=== PATIENT | female | born 1950 | race Caucasian/White ===

== ENCOUNTER 2020-07-13 15:25 | Inpatient (IN) | payer MEDICAID ==
[~2020-07-13] VITALS: Ht 149.9 cm; Wt 46.7 kg
--- NOTE | 2020-07-13 15:36 | NUR ---
PATIENT A/OX2-3, BURUNDIAN SPEAKING ONLY. ATTACHED TO THE UTILITIES ESTIMATOR AND DRAFTER. BP 184/84. NO DISTRESS NOTED.
--- NOTE | 2020-07-13 16:02 | NUR ---
BLOOD DRAWN AND SENT TO LAB.
[2020-07-13 16:06] LABS: BASOPHILS % (AUTO) 0.5 % (0.0-2.0); EOSINOPHILS % (AUTO) 2.1 % (0.0-6.0); HEMATOCRIT 41 % (33-45); HEMOGLOBIN 12.9 g/dL (11.5-14.8); LYMPHOCYTES # (AUTO) 1.4 /CMM (0.8-4.8); LYMPHOCYTES % (AUTO) 18.4 % (20.0-44.0); MEAN CORPUSCULAR HGB CONC 31 g/dl (31.0-36.0); MEAN CORPUSCULAR VOLUME 71 fL (82-100); MONOCYTES # (AUTO) 0.6 /CMM (0.1-1.30); MONOCYTES % (AUTO) 8.1 % (2.0-12.0); NEUTROPHILS # (AUTO) 5.4 /CMM (1.8-8.9); NEUTROPHILS % (AUTO) 70.9 % (43.0-81.0); PLATELET COUNT (AUTO) 201 /CMM (150-450); RED BLOOD CELL COUNT(AUTO) 5.77 MIL/uL (4.0-5.2); WHITE BLOOD COUNT (AUTO) 7.6 K/uL (4.3-11.0)
[2020-07-13 16:19] LABS: ALANINE AMINOTRANSFERASE 20 U/L (12-78); ALBUMIN 2.8 g/dL (3.4-5.0); ALKALINE PHOSPHATASE 117 U/L (46-116); ASPARTATE AMINOTRANSFERASE 37 U/L (15-37); BILIRUBIN,TOTAL 0.2 mg/dL (0.2-1.0); CALCIUM, SERUM 8.3 mg/dL (8.5-10.1); CARBON DIOXIDE 26 mmol/L (21-32); CHLORIDE 96 mmol/L (98-107); CREATININE 2.1 mg/dL (0.6-1.3); GLUCOSE 147 mg/dL (74-106); POTASSIUM 3.9 mmol/L (3.5-5.1); SODIUM SERUM 133 mmol/L (136-145); TOTAL PROTEIN, SERUM 6.8 g/dL (6.4-8.2); UREA NITROGEN, BLOOD 15 mg/dL (7-18)
--- NOTE | 2020-07-13 16:28 | NUR ---
MED RECON UNABLE TO UPDATE HOME MEDICATION INFORMATION AT THIS TIME. PATIENT RESIDES AT [facility] [phone]. CALLED AND REQUESTED RECORDS X3.
[2020-07-13] MEDS ORDERED: ENALAPRILAT INJ (1.25 MG/ML) 1.25 MG/ML VIAL IV ONE (16:44)
[2020-07-13 16:50] LABS: EOSINOPHILS % (MANUAL) 1 % (0-4); LYMPHOCYTES % (MANUAL) 16 % (16-48); MONOCYTES % (MANUAL) 6 % (0-11.0); NEUTROPHILS % (MANUAL) 77 (42-76)
[2020-07-13] MEDS ORDERED: ENALAPRILAT DIHYD. (2.5MG/ML) 1.25 MG/ML VIAL IV ONE (17:00)
--- NOTE | 2020-07-13 17:22 | NUR ---
PATIENT ASSISTED TO A BEDPAN. PATIENT IN STABLE CONDITION.
[2020-07-13] MEDS ORDERED: POLY15DR40 EACHEYE (17:57)
[2020-07-13] MEDS ORDERED: ASPI-1420 PO (17:57)
[2020-07-13] MEDS ORDERED: INSU100V7 SQ (17:57)
[2020-07-13] MEDS ORDERED: BUME1TAB8 PO (17:57)
[2020-07-13] MEDS ORDERED: FERR325T24 PO (17:57)
[2020-07-13] MEDS ORDERED: MULT1TAB62 PO (17:57)
[2020-07-13] MEDS ORDERED: PROC5TAB25 PO (17:57)
[2020-07-13] MEDS ORDERED: ERGO500014 PO (17:57)
[2020-07-13] MEDS ORDERED: NIFE90TA61 PO (17:57)
[2020-07-13] MEDS ORDERED: CALC667C6 PO (17:57)
[2020-07-13] MEDS ORDERED: LIDO30CR47 TP (17:57)
[2020-07-13] MEDS ORDERED: POLY17PO4 PO (17:57)
[2020-07-13] MEDS ORDERED: OMEP20TA20 PO (17:57)
[2020-07-13] MEDS ORDERED: AMLO5TAB9 PO (17:57)
[2020-07-13] MEDS ORDERED: ATOR40TA PO (17:57)
[2020-07-13] MEDS ORDERED: LEVO50TA8 PO (17:57)
[2020-07-13] MEDS ORDERED: ACET-868 PO (17:57)
[2020-07-13] MEDS ORDERED: LABE100T5 PO (17:57)
[2020-07-13] MEDS ORDERED: CLONIDINE HCL 0.1 MG TABLET ONE ×2 (18:53→19:51)
[2020-07-13] MEDS ORDERED: hydrALAZINE HCL IV 20 MG VIAL IV ONE (19:00)
--- NOTE | 2020-07-13 19:13 | NUR ---
HYDRALAZINE IV NOT AVAILABLE PER PHARMACY, INFORMED DR. LEYVA AND RECEIVED ORDER TO GIVE CLONIDINE 0.1MG X1. ORDER NOTED AND CARRIED OUT.
--- NOTE | 2020-07-13 19:18 | NUR ---
ENDORSED TO BRITT OTERO FOR COLLIN.
[2020-07-13] MEDS ORDERED: CLONIDINE HCL 0.1 MG TABLET PO ONE ×2 (19:30)
--- NOTE | 2020-07-13 20:52 | NUR ---
PATIENT TAKEN TO ASSIGNED ROOM FOR COLLIN.
[2020-07-13] MEDS ORDERED: FERROUS SULFATE (325 MG) 325 MG/TAB TABLET PO SCH (21:00)
[2020-07-13] MEDS ORDERED: ONDANSETRON HCL/PF 4 MG/2 ML VIAL IVP PRN (21:00)
[2020-07-13] MEDS ORDERED: Z GUARD REMEDY 2 OZ OINT TP PRN (21:00)
--- NOTE | 2020-07-13 21:10 | NUR ---
RN ADMITTING NOTES PATIENT RECEIVED FROM ER VIA GURNEY ACCOMPANIED BY ER STAFF. PATIENT A/O X 2, YARIEL SPEAKING. STABLE ON RA WITH BREATHING EVEN AND UNLABORED, NO SOB NOTED. NO SIGNS OF ACUTE DISTRESS. NO COMPLAINTS OF PAIN OR DISCOMFORT- NO FACIAL GRIMACING NOTED. RCW HD CATH NOTED AND IN PLACE. RFA #20 SL PATENT AND INTACT. VITALS TAKEN. TELE MONITOR PLACED. BELONGINGS ACCOUNTED FOR. SKIN ASSESSMENT DONE. PATIENT ORIENTED TO ROOM AND STAFF. SAFETY PRECAUTIONS IN PLACE WITH BED IN LOWEST POSITION, CALL LIGHT WITHIN REACH, BREAKS ON, SIDE RAILS UP. WILL CONTINUE TO MONITOR THROUGHOUT THE NIGHT.
[2020-07-13] MEDS: LABETALOL HCL (100MG) 100 MG TABLET PO SCH (21:47)
[2020-07-13 22:00] VITALS: BP 207/92
[2020-07-14] VITALS: BP 211/96
[2020-07-14] MEDS ORDERED: PROCHLORPERAZINE MALEATE 5 MG TABLET PO SCH
[2020-07-14] MEDS ORDERED: PROCHLORPERAZINE MALEATE 10 MG TABLET PO SCH
[2020-07-14 00:25] VITALS: BP 211/96
[2020-07-14] MEDS: hydrALAZINE HCL 25 MG TABLET PO PRN ×3 (00:33→14:11)
[2020-07-14 03:17] LABS: BASOPHILS # (AUTO) 0.3 /CMM (0.0-0.2); BASOPHILS % (AUTO) 2.9 % (0.0-2.0); EOSINOPHILS % (AUTO) 1.7 % (0.0-6.0); HEMATOCRIT 41 % (33-45); HEMOGLOBIN 12.8 g/dL (11.5-14.8); LYMPHOCYTES % (AUTO) 10.3 % (20.0-44.0); MEAN CORPUSCULAR HGB CONC 32 g/dl (31.0-36.0); MEAN CORPUSCULAR VOLUME 70 fL (82-100); MONOCYTES # (AUTO) 0.6 /CMM (0.1-1.30); MONOCYTES % (AUTO) 6.1 % (2.0-12.0); NEUTROPHILS # (AUTO) 7.3 /CMM (1.8-8.9); PLATELET COUNT (AUTO) 196 /CMM (150-450); RED BLOOD CELL COUNT(AUTO) 5.75 MIL/uL (4.0-5.2); WHITE BLOOD COUNT (AUTO) 9.2 K/uL (4.3-11.0)
[2020-07-14 03:32] LABS: ALANINE AMINOTRANSFERASE 20 U/L (12-78); ALBUMIN 2.5 g/dL (3.4-5.0); ALKALINE PHOSPHATASE 101 U/L (46-116); ASPARTATE AMINOTRANSFERASE 35 U/L (15-37); BILIRUBIN,TOTAL 0.1 mg/dL (0.2-1.0); CALCIUM, SERUM 8.3 mg/dL (8.5-10.1); CARBON DIOXIDE 30 mmol/L (21-32); CHLORIDE 99 mmol/L (98-107); GLUCOSE 109 mg/dL (74-106); MAGNESIUM 2.1 mg/dL (1.8-2.4); PHOSPHORUS 3.5 mg/dL (2.5-4.9); POTASSIUM 4.5 mmol/L (3.5-5.1); SODIUM SERUM 135 mmol/L (136-145); TOTAL PROTEIN, SERUM 6.3 g/dL (6.4-8.2); UREA NITROGEN, BLOOD 18 mg/dL (7-18)
[2020-07-14 03:35] LABS: CHOLESTEROL 127 mg/dL (<200); HDL CHOLESTEROL 66 mg/dL (40-60); LDL 52 mg/dL (0-99); TRIGLYCERIDES 90 mg/dL (30-150)
[2020-07-14 04:00] VITALS: BP 183/76
--- NOTE | 2020-07-14 06:51 | NUR ---
RN CLOSING NOTES PATIENT RESTING IN BED A/O X 1-2. STABLE ON RA WITH BREATHING EVEN AND UNLABORED, NO SOB NOTED. NO SIGNS OF ACUTE DISTRESS. NO SIGNS OF PAIN OR DISCOMFORT- NO FACIAL GRIMACING NOTED. TELE MONITOR READING TELE SR. IV LCOATED ON R HAND # 20 AND R CHESTWALL HD CATH NOTED AND IN TACT. SAFETY PRECAUTIONS IN PLACE WITH BED IN LOWEST POSITION, CALL LIGHT WITHIN REACH, BREAKS ON, SIDE RAILS UP. ALL NEEDS ATTENDED TO. PATIENT KEPT CLEAN AND DRY THROUGHOUT THE NIGHT. WILL ENDORSE TO ONCOMING SHIFT ABOUT COLLIN.
--- NOTE | 2020-07-14 07:20 | NUR ---
ms rn received a new admission from last night, patient is awake,alert,oriented x2,not in any form of distress,came in w/ dx of tia, respirations even and unlabored, no sob noted, denies pain at this time,all needs attended.will monitor patient.
--- NOTE | 2020-07-14 08:00 | NUR ---
ms rn patient assessed for swallowing, was able to swallow food w/o dificulty and current issue for ability to swallow.whole breakfast taken.
[2020-07-14] MEDS ORDERED: AMLODIPINE BESYLATE 5 MG TABLET PO SCH (09:00)
[2020-07-14] MEDS: ASPIRIN EC 81 MG TABLET.DR PO SCH (09:00)
--- NOTE | 2020-07-14 09:00 | NUR ---
ms brent Koehler for stroke assessment orders,will look at the stroke nihs done and milady rechecked orders.
--- NOTE | 2020-07-14 09:30 | NUR ---
ms rn due meds given,tolerated well. evaluated for pt also done.
[2020-07-14] MEDS: POLYETHYLENE GLYCOL 3350 17 GM POWD.PACK PO SCH (10:01)
[2020-07-14] MEDS: ATORVASTATIN 40 MG TABLET PO SCH (10:01)
[2020-07-14] MEDS: LABETALOL HCL (100MG) 100 MG TABLET PO SCH ×2 (10:02→21:42)
[2020-07-14] MEDS: BUMETANIDE (1 MG) 1 MG TABLET PO SCH (10:02)
[2020-07-14] MEDS: NIFEdipine XL (30MG) 30 MG TAB PO SCH (10:03)
[2020-07-14] MEDS: ASPIRIN 81 MG TAB.CHEW PO SCH (10:04)
[2020-07-14] MEDS: hydrALAZINE HCL 50 MG TABLET PO SCH ×3 (10:04→17:18)
[2020-07-14] MEDS: LEVOTHYROXINE SODIUM 75 MCG TABLET PO SCH (10:06)
[2020-07-14] MEDS: CALCIUM ACETATE 667 MG TABLET PO SCH ×3 (10:07→17:18)
[2020-07-14] MEDS: NITROGLYCERIN 30 GM TUBE TP SCH ×2 (10:20→21:00)
[2020-07-14] MEDS: INSULIN GLARGINE, 100 UNIT/ML CARTRIDGE SQ SCH ×2 (10:26→21:51)
--- NOTE | 2020-07-14 11:16 | NUR ---
Gauge And Weigh Machine Adjuster consult requested per stroke protocol. Per RN note, patient is not alert and oriented. SW attempted to speak with a self pay representative at [facility] . SW could not speak to a self pay representative and could not leave a voicemail. SW to attempt again to receive information next of kin. SW to remain available for all needs regarding this patient.
--- NOTE | 2020-07-14 12:23 | NUR ---
KYLER attempted to speak with a inventory representative at [facility] . KYLER could not speak to a inventory representative however was able to leave a message. SW to remain available for all needs regarding this patient.
--- NOTE | 2020-07-14 14:30 | NUR ---
ms rn covid negative result received patient will be transfered to [facility], supervisor stone notified.
[2020-07-14] MEDS ORDERED: DEXTROSE 50%-WATER 50 ML DISP.SYRIN IV PRN (15:00)
--- NOTE | 2020-07-14 15:25 | NUR ---
ms rn patient transferred to [facility], report given to lauren Pickens.
--- NOTE | 2020-07-14 15:30 | NUR ---
MAGENTO WEB DEVELOPER NOTES RECEIVED PT FROM [place] RN, PT IS AWAKE, ALERT AND VERBALLY RESPONSIVE, NO COMPLAINT OF PAIN, RESPIRATIONS NORMAL, ROOM SET UP ORIENTATION PROVIDED TO PT, VERBALIZED UNDERSTANDING, KEPT PT COMFORTABLE.
[2020-07-14 16:00] VITALS: BP 143/59
[2020-07-14] MEDS: BLOOD SUGAR DIAGNOSTIC 1 EACH STRIP IN SCH ×2 (18:10→21:58)
--- NOTE | 2020-07-14 18:13 | NUR ---
RN MS NOTES PT'S BS 483, DR. HONG INFORMED, ORDERED TO GIVE 14 UNITS REGULAR INSULIN AND RECHECK BS AFTER 2 HOURS, NOTED AND CARRIED OUT.
[2020-07-14] MEDS ORDERED: INSULIN REGULAR, HUMAN 100 UNIT/ML 3 ML VIAL SQ ONE (18:30)
--- NOTE | 2020-07-14 18:35 | NUR ---
ASSOCIATE VICE PRESIDENT NOTES PT IN BED, AWAKE, ALERT AND ORIENTED, EATING DINNER, ABLE TO EAT INDEPENDENTLY, NO SWALLOWING PROBLEM NOTED, PM MEDS GIVEN, PM CARE PROVIDED, ALL NEEDS ATTENDED.
--- NOTE | 2020-07-14 19:30 | NUR ---
RN OPENING NOTES Received patient asleep on bed, easily awaken, responsive to verbal stimuli. Rechecked blood sugar as ordered, 367. Pt denies any discomfort at this time. On tele monitor with NSR noted. Kept on bed clean, dry and comfortable. Call light within easy reach. Will continue to monitor accordingly.
[2020-07-14 20:00] VITALS: BP 114/68
[2020-07-14] MEDS ORDERED: ERGOCALCIFEROL (VITAMIN D 2) 50,000 UNIT CAPSULE PO SCH (21:00)
[2020-07-14] MEDS: ACETAMINOPHEN 325 MG TABLET PO PRN (21:41)
--- NOTE | 2020-07-14 22:45 | NUR ---
RN NOTES: CM CONSULT Pt is noted with very limited Mongolian communication. Pt's primary and main language is Graham. Per patient she is mostly misunderstood and thought to be disoriented in her previous facility due to language barrier. Pt requesting if she could be transferred into a facility able to accommodate Graham-communication needs. Case management consult initiated.
[2020-07-14 23:27] VITALS: BP_SYST 119; BP_SYST 131; BP_DIAS 66; BP_DIAS 68
[2020-07-15] VITALS: BP 151/68
[2020-07-15 04:00] VITALS: BP 152/67
[2020-07-15] MEDS: ACETAMINOPHEN 325 MG TABLET PO PRN (05:21)
[2020-07-15 06:32] LABS: BASOPHILS % (AUTO) 0.5 % (0.0-2.0); EOSINOPHILS % (AUTO) 1.9 % (0.0-6.0); HEMATOCRIT 40 % (33-45); HEMOGLOBIN 12.5 g/dL (11.5-14.8); LYMPHOCYTES # (AUTO) 1.4 /CMM (0.8-4.8); LYMPHOCYTES % (AUTO) 17.7 % (20.0-44.0); MEAN CORPUSCULAR HGB CONC 31 g/dl (31.0-36.0); MEAN CORPUSCULAR VOLUME 72 fL (82-100); MONOCYTES # (AUTO) 0.7 /CMM (0.1-1.30); NEUTROPHILS # (AUTO) 5.8 /CMM (1.8-8.9); NEUTROPHILS % (AUTO) 70.9 % (43.0-81.0); PLATELET COUNT (AUTO) 188 /CMM (150-450); RED BLOOD CELL COUNT(AUTO) 5.57 MIL/uL (4.0-5.2); WHITE BLOOD COUNT (AUTO) 8.2 K/uL (4.3-11.0)
--- NOTE | 2020-07-15 06:35 | NUR ---
RN CLOSING NOTES Pt asleep on bed, on RA, no new complaints noted. Medicated for pain, noted effective. All nursing needs attended, due meds given as ordered. Kept on bed clean, dry and comfortable. On fall and aspiration precautions. On tele monitor with NSR with inverted T wave noted. Endorsed.
[2020-07-15] MEDS: LEVOTHYROXINE SODIUM 75 MCG TABLET PO SCH (06:38)
[2020-07-15] MEDS: BLOOD SUGAR DIAGNOSTIC 1 EACH STRIP IN SCH ×4 (06:38→22:12)
[2020-07-15 06:44] LABS: ALANINE AMINOTRANSFERASE 19 U/L (12-78); ALBUMIN 2.6 g/dL (3.4-5.0); ALKALINE PHOSPHATASE 102 U/L (46-116); ASPARTATE AMINOTRANSFERASE 54 U/L (15-37); CALCIUM, SERUM 8.1 mg/dL (8.5-10.1); CARBON DIOXIDE 25 mmol/L (21-32); CHLORIDE 95 mmol/L (98-107); CREATININE 4.1 mg/dL (0.6-1.3); GLUCOSE 74 mg/dL (74-106); MAGNESIUM 2.2 mg/dL (1.8-2.4); PHOSPHORUS 4.7 mg/dL (2.5-4.9); POTASSIUM 4.3 mmol/L (3.5-5.1); SODIUM SERUM 131 mmol/L (136-145); TOTAL PROTEIN, SERUM 6.4 g/dL (6.4-8.2); UREA NITROGEN, BLOOD 36 mg/dL (7-18)
[2020-07-15 06:58] LABS: BILIRUBIN,TOTAL 0.1 mg/dL (0.2-1.0)
--- NOTE | 2020-07-15 07:30 | NUR ---
RN/MS Opening note Patient received from shift supervisor. A/O X4, vital signs stable, no fevers noted. Per shift supervisor nurse who is able to communicate with patient in Malagasy, no pain or discomfort. Heplock to right hand shows no signs of infiltration, permacath to right chest wall noted. Safety measures in place, bed in low setting, side rails X3 in upright position. Call light within reach, will continue to monitor and ensure safety.
[2020-07-15 08:00] VITALS: BP 129/61
--- NOTE | 2020-07-15 08:30 | NUR ---
MS/RN S/B DR. HONG S/B HAL PATIENT FOR DISCHARGED TO SNF VS ARU TODAY.
[2020-07-15] MEDS: POLYETHYLENE GLYCOL 3350 17 GM POWD.PACK PO SCH (08:35)
[2020-07-15] MEDS: ASPIRIN 81 MG TAB.CHEW PO SCH (08:36)
[2020-07-15] MEDS: hydrALAZINE HCL 50 MG TABLET PO SCH ×3 (08:36→17:00)
[2020-07-15] MEDS: LABETALOL HCL (100MG) 100 MG TABLET PO SCH ×2 (08:37→22:23)
[2020-07-15] MEDS: CALCIUM ACETATE 667 MG TABLET PO SCH ×3 (08:37→17:12)
[2020-07-15] MEDS: ATORVASTATIN 40 MG TABLET PO SCH (08:37)
[2020-07-15] MEDS: BUMETANIDE (1 MG) 1 MG TABLET PO SCH (08:37)
[2020-07-15] MEDS: NIFEdipine XL (30MG) 30 MG TAB PO SCH (08:38)
[2020-07-15] MEDS: NITROGLYCERIN 30 GM TUBE TP SCH ×2 (08:38→22:22)
[2020-07-15] MEDS: INSULIN GLARGINE, 100 UNIT/ML CARTRIDGE SQ SCH ×2 (08:47→21:00)
[2020-07-15] MEDS: ASPIRIN EC 81 MG TABLET.DR PO SCH (08:47)
--- NOTE | 2020-07-15 11:30 | NUR ---
MS/RN BS CHECK BS CHECK 200. 3 UNITS OF INSULIN GIVEN PER SLIDING SCALE.
[2020-07-15 12:00] VITALS: BP 127/61
[2020-07-15] MEDS: INSULIN REGULAR, HUMAN 100 UNIT/ML 3 ML VIAL SQ PRN ×3 (12:00→22:17)
--- NOTE | 2020-07-15 13:25 | NUR ---
Relief Manager met with patient today to complete a psychosocial assessment. Reason for assessment is stroke protocol. Patient is a 70 year-old female of descent. Patient is Graham speaking with minimal Wallisian understanding. This SW with assistance of carton wrapper Amado used translation phone to conduct social services assistant assessment. Patient was alert and oriented x4 (time, self, place, situation). Patient was receptive to speaking to this SW. Patient reported that she had been living at [facility]. Patient reported she had been living there for quite some time but did not like it as much because there were very minimal staff to help her as many did not speak Graham. Patient informed this SW that she informed this to one [facility] RN who spoke Graham. This SW during chart review noticed this and Case Management was involved in finding appropriate discharge location. SW conducted PHQ9 with the patient. Patient scored a 1 on the PHQ9 assessment. SW provided stroke empowerment resources in Wallisian. SW to remain available for all needs regarding this patient.
--- NOTE | 2020-07-15 14:30 | NUR ---
MS/RN HDX HDX STARTED AT BEDSIDE.
[2020-07-15 16:00] VITALS: BP 105/48
--- NOTE | 2020-07-15 16:30 | NUR ---
MS/RN BS CHECK BS CHECK 141. 2 UNITS OF INSULIN GIVEN PER SLIDING SCALE.
--- NOTE | 2020-07-15 17:00 | NUR ---
MS/RN HDX COMPLETED HDX COMPLETED. VS SIGNS STABLE THROUGHOUT. 1 LITER OF FLUIDS REMOVED.
--- NOTE | 2020-07-15 18:34 | NUR ---
MS/RN CLOSING NOTE PATIENT IS IN STABLE CONDITION POST DIALYSIS. VS STABLE. AWAITING INFORMATION OPERATOR FOR PLACEMENT. WILL ENDORSE TO TECHNOLOGY APPLICATIONS TEACHER.
--- NOTE | 2020-07-15 19:30 | NUR ---
SECURITY SYSTEM INSTALLER OPENING NOTE RECEIVED PATIENT IN BED. A/OX 4. MACEDONIAN SPEAKING, ABLE TO MAKE BASIC NEEDS KNOWN. TOLERATING ROOM AIR. RESPIRATIONS ARE EVEN AND UNLABORED. NO S/S SOB NOTED. NO C/O PAIN AT THIS TIME. EXTERNAL TELE MONITOR READS SINUS RHYTHM HR 77. IN NO APPARENT DISTRESS. IV ACCESS IN RIGHT HAND #20 PATENT AND SALINE LOCKED. BED IS LOW AND LOCKED, HOB ELEVATED IN SEMI FOWLERS, SIDE RAILS UP X33, CALL LIGHT WITHIN REACH. WILL CONTINUE TO MONITOR.
[2020-07-15 20:00] VITALS: BP 157/67
--- NOTE | 2020-07-15 22:33 | NUR ---
television repair teacher note patient refused lantus 10 units. informed her of risk and benefits, continues to refuse. will continue to monitor.
[2020-07-16] VITALS: BP_SYST 151; BP_SYST 154; BP_DIAS 63; BP_DIAS 92
[2020-07-16] MEDS: ACETAMINOPHEN 325 MG TABLET PO PRN ×3 (01:23→17:23)
--- NOTE | 2020-07-16 01:23 | NUR ---
telephone coin box collector note administered prn tylenol 650mg for pain 3/10 in back. will continue ot monitor.
[2020-07-16 04:00] VITALS: BP 147/61
[2020-07-16] MEDS: BLOOD SUGAR DIAGNOSTIC 1 EACH STRIP IN SCH ×4 (06:25→21:02)
--- NOTE | 2020-07-16 06:37 | NUR ---
HEAD OPERATOR CLOSING NOTE PATIENT IS RESTING IN BED. A/OX 4. NO RESP DISTRESS NOTED. MANAGED BACK PAIN WITH TYLENOL. EXTERNAL TELE MONITOR READS SINUS RHYTHM. NO DISTRESS. IV ACCESS MAINTAINED IN RIGHT HAND #20 PATENT AND SALINE LOCKED. BED REMAINS LOW AND LOCKED, HOB ELEVATED IN SEMI FOWLERS, SIDE RAILS UP X3, CALL LIGHT WITHIN REACH. WILL ENDORSE TO NEXT SHIFT.
--- NOTE | 2020-07-16 07:13 | NUR ---
telecommunicator note informed dr. yancey patient has new st depression and is complaining of back pain from neck to lower back. no chest pain noted. MD order stat ekg. called rt to perform ekg. will endorse to next shift.
[2020-07-16 08:09] VITALS: BP 169/72
[2020-07-16] MEDS: hydrALAZINE HCL 50 MG TABLET PO SCH ×3 (08:24→16:32)
[2020-07-16] MEDS: ASPIRIN 81 MG TAB.CHEW PO SCH (08:24)
[2020-07-16] MEDS: ATORVASTATIN 40 MG TABLET PO SCH (08:24)
[2020-07-16] MEDS: CALCIUM ACETATE 667 MG TABLET PO SCH ×3 (08:24→17:00)
[2020-07-16] MEDS: NIFEdipine XL (30MG) 30 MG TAB PO SCH (08:24)
[2020-07-16] MEDS: LABETALOL HCL (100MG) 100 MG TABLET PO SCH ×2 (08:25→20:51)
[2020-07-16] MEDS: LEVOTHYROXINE SODIUM 75 MCG TABLET PO SCH (08:25)
[2020-07-16] MEDS: BUMETANIDE (1 MG) 1 MG TABLET PO SCH (08:25)
[2020-07-16] MEDS: POLYETHYLENE GLYCOL 3350 17 GM POWD.PACK PO SCH (08:25)
[2020-07-16 09:06] LABS: CARBON DIOXIDE 28 mmol/L (21-32); CHLORIDE 97 mmol/L (98-107); CREATININE 3.9 mg/dL (0.6-1.3); GLUCOSE 267 mg/dL (74-106); POTASSIUM 4.6 mmol/L (3.5-5.1); SODIUM SERUM 131 mmol/L (136-145); UREA NITROGEN, BLOOD 31 mg/dL (7-18)
[2020-07-16] MEDS: INSULIN GLARGINE, 100 UNIT/ML CARTRIDGE SQ SCH ×2 (09:07→21:01)
[2020-07-16] MEDS: NITROGLYCERIN 30 GM TUBE TP SCH ×2 (09:09→20:51)
[2020-07-16 09:20] LABS: ALANINE AMINOTRANSFERASE 22 U/L (12-78); ALBUMIN 2.7 g/dL (3.4-5.0); ALKALINE PHOSPHATASE 103 U/L (46-116); ASPARTATE AMINOTRANSFERASE 47 U/L (15-37); BILIRUBIN,TOTAL 0.1 mg/dL (0.2-1.0); MAGNESIUM 2.1 mg/dL (1.8-2.4); PHOSPHORUS 3.7 mg/dL (2.5-4.9); TOTAL PROTEIN, SERUM 6.6 g/dL (6.4-8.2)
--- NOTE | 2020-07-16 10:01 | NUR ---
TELE/RN NOTES CTA 3D IMAGE SCAN WAS EXPLAINED AND TRANSLATE BY JEFF(MATERIALS SCHEDULER). PATIENT WAS VERBALIZED THAT SHE WAS AGREED TO SIGN THE CONSENT. THE CONSENT WAS SIGNED AND ATTACH TO CHART.
--- NOTE | 2020-07-16 10:22 | NUR ---
TELE/RN NOTES PATIENT COMPLAINED OF HEADACHE, PATIENT REQUEST FOR TYLENOL 325MG 2 TAB PO AND WAS GIVEN. WILL CONTINUE TO MONITOR..
[2020-07-16] MEDS: INSULIN REGULAR, HUMAN 100 UNIT/ML 3 ML VIAL SQ PRN ×2 (12:12→21:02)
[2020-07-16 16:00] VITALS: BP 139/63
[2020-07-16] MEDS ORDERED: METOPROLOL TARTRATE 50 MG TABLET PO STA (16:00)
[2020-07-16] MEDS ORDERED: CT SWABBABLE VALVE TRANS SET 1 EA INFUS.SET MC ONE (16:17)
[2020-07-16] MEDS ORDERED: IOHEXOL-350 100 ML VIAL IV ONE (16:17)
[2020-07-16] MEDS ORDERED: IV NS 0.9% 250 ML IV ONE (16:17)
--- NOTE | 2020-07-16 17:03 | NUR ---
MS/RN HDX Per dialysis nurse Bill, order given by Dr Zacarias that patient stable for dialysis to be scheduled for early tomorrow morning. problem manager made aware, Dr Alvarez also informed.
--- NOTE | 2020-07-16 17:03 | NUR ---
TELE/RN NOTES PATIENT IS OUT IN THE UNIT, TOOL ANALYST BY KELVIN ([email or web address]). PATIENT I NO APPARENT RESPIRATORY DISTRESS NOTED. PATIENT DENIES PAIN AT THIS TIME.
--- NOTE | 2020-07-16 17:12 | NUR ---
TELE/RN NOTES PATIENT COMPLAINED OF BACK PAIN RATED 4/10, PATIENT REQUEST TYLENOL, TYLENOL 325MG 2 TAB PO WAS GIVEN. BROUGHT THE MEDICATION TO THE CAT LAB.
[2020-07-16] MEDS ORDERED: METOPROLOL TARTRATE INJ 5 MG/5 ML AMPUL ONE ×2 (17:17→17:34)
--- NOTE | 2020-07-16 18:05 | NUR ---
TELE/RN NOTES PATIENT CAME BACK FROM CAT LAB.
--- NOTE | 2020-07-16 18:52 | NUR ---
MS/RN CLOSING NOTES PATIENT IS ON BED. ALERT AND ORIENTED X4. PATIENT DENIES PAIN AT THIS TIME. IV ACCESS AT RIGHT HAND # 20 G AND RIGHT UPPER FOREARM MIDLINE PATENT AND INTACT. RIGHT CHEST WALL HEMODIALYSIS CATH CLEAN AND DRY. SEEN AND EXAMINED BY MD WITH ORDERS MADE AND CARRIED OUT. ALL DUE MEDICATION WAS GIVEN. SAFETY PRECAUTION WAS IN PLACED. BED IN LOWEST POSITION AND LOCKED. SIDERAILS UP X2. CALL LIGHT WITHIN REACH. PATIENT IS POSSIBLE DISCHARGED TODAY. WILL ENDORSED TO B2B ACCOUNT EXECUTIVE FOR COLLIN.
--- NOTE | 2020-07-16 19:27 | NUR ---
LODGING MANAGER OPENING NOTES PATIENT RECEIVED RESTING IN BED COMFORTABLY; A/OX3-4, KAZAKH SPEAKER; BREATHING EVEN AND UNLABORED; TOLERATING ROOM AIR WELL; NO SOB NOTED; TELE MONITOR READS SR 68BPM; R UA MIDLINE INTACT AND PATENT, INFUSING NORMAL SALINE, PATIENT TOLERATING IVF WELL; R HAND #20 INTACT AND PATENT, S/L, FLUSHING WELL; RCW HD CATH PRESENT; PATIENT RECEIVED HD 07/15/20 WITH 1L, PER AM SHIFT, PATIENT SCHEDULED FOR HD IN AM PRIOR TO D/C; SAFETY PRECAUTIONS IMPLEMENTED'; BED LOCKED IN LOW POSITION; SIDE RAILSX2; CALL LIGHT WITHIN REACH; WILL CONT TO MONITOR
[2020-07-16 20:00] VITALS: BP 151/64
[2020-07-16 20:13] VITALS: BP 151/64
--- NOTE | 2020-07-16 22:06 | NUR ---
MANAGER PET NOTES ER CALLED AND MENTIONED TRANSPORT HERE TO DESTINATION SIGN REPAIRER PATIENT; PER AM SHIFT, PATIENT IS TO D/C IN AM AFTER HEMODIALYSIS; CHARGE NURSE AWARE AND SPOKE WITH ER; PATIENT IS TO STAY UNTIL HEMODIALYSIS IN AM; WILL CONT TO MONITOR
[2020-07-17 04:00] VITALS: BP 147/58
[2020-07-17] MEDS: BLOOD SUGAR DIAGNOSTIC 1 EACH STRIP IN SCH ×2 (06:30→11:54)
--- NOTE | 2020-07-17 06:57 | NUR ---
PRESS BUCKER CLOSING NOTES PATIENT RESTING IN BED COMFORTABLY; A/OX3-4, WELSH SPEAKING, LIMITED SOUTH KOREAN; BREATHING EVEN AND UNLABORED; NO SOB NOTED; TOLERATING ROOM AIR WELL; TELE MONITOR READS SINUS RHYTHM; R HAND #20 S/L INTACT, KATHLEEN MIDLINE INTACT AND PATENT; RCW HD CATH PRESENT; ALL NEEDS RENDERED; SAFETY PRECAUTIONS IMPLEMENTED; BED LOCKED IN LOW POSITION; SIDE RAILSX2; CALL LIGHT WITHIN EASY REACH; WILL ENDORSE COLLIN TO ONCOMING SHIFT
[2020-07-17 08:00] VITALS: BP 138/58
--- NOTE | 2020-07-17 08:00 | NUR ---
MS RN NOTES PATIENT IN BED RESTING NO SOB OR ACUTE DISTRESS NOTED. MIDLINE INTACT PATENT. SAFETY MEASURES IN PLACE. WILL CONTINUE TO MONITOR.
[2020-07-17] MEDS: LEVOTHYROXINE SODIUM 75 MCG TABLET PO SCH (08:48)
[2020-07-17] MEDS: INSULIN GLARGINE, 100 UNIT/ML CARTRIDGE SQ SCH (09:00)
[2020-07-17] MEDS: hydrALAZINE HCL 50 MG TABLET PO SCH ×2 (09:00→13:02)
[2020-07-17] MEDS: NITROGLYCERIN 30 GM TUBE TP SCH (09:00)
[2020-07-17] MEDS: POLYETHYLENE GLYCOL 3350 17 GM POWD.PACK PO SCH (09:12)
[2020-07-17] MEDS: BUMETANIDE (1 MG) 1 MG TABLET PO SCH (09:12)
[2020-07-17] MEDS: NIFEdipine XL (30MG) 30 MG TAB PO SCH (09:12)
[2020-07-17] MEDS: CALCIUM ACETATE 667 MG TABLET PO SCH ×2 (09:12→13:01)
[2020-07-17] MEDS: ATORVASTATIN 40 MG TABLET PO SCH (09:13)
[2020-07-17] MEDS: ASPIRIN 81 MG TAB.CHEW PO SCH (09:13)
[2020-07-17] MEDS: LABETALOL HCL (100MG) 100 MG TABLET PO SCH (09:13)
[2020-07-17 11:35] VITALS: BP 150/59
[2020-07-17] MEDS: INSULIN REGULAR, HUMAN 100 UNIT/ML 3 ML VIAL SQ PRN (11:53)
--- NOTE | 2020-07-17 12:00 | NUR ---
MS RN NOTES PATIENT COMPLETED HD WITH 1L OUTPUT. TOLERATED WELL.
[2020-07-17 13:02] VITALS: BP 146/60
--- NOTE | 2020-07-17 13:30 | NUR ---
MS RN NOTES PATIENT DISCHARGED TO [facility] IN STABLE CONDITION. REPORT GIVEN TO MICHAEL RN. INSTRUCTED TO MAKE FOLLOW UP BRIGIDO WITH DR. CORTES. ALL DISCHARGE INSTRUCTIONS PROVIDED TO PATIENT AND SN AT SNF. DISCHARGE PROTOCOL FOLLOWED. AWARE OF ALL ABNORMAL LABS AND TESTS. ALL BELONGINGS ACCOUNTED FOR, BELONGING LIST SIGNED. PATIENT DISCHARGED WITH AMBULANCE.
== END 2020-07-17 13:30 | DRG 111 ==
LOC: ER 15:30 → TELE2 20:09 → TELE 07-14 16:26 → MED 07-17 09:47
PROVIDERS: ADMIT Nurse Practitioner Acute Care; ATTEND Internal Medicine
PROC: 5A1D70Z Performance of Urinary Filtration, Intermittent, Less than 6 Hours Per Day (ICD-10-PCS; 2020-07-15)
PROC: 05HY33Z Insertion of Infusion Device into Upper Vein, Percutaneous Approach (ICD-10-PCS; principal; 2020-07-16)
DX: H81.10 Benign paroxysmal vertigo, unspecified ear (principal); I95.3 Hypotension of hemodialysis; I13.2 Hypertensive heart and chronic kidney disease with heart failure and with stage 5 chronic kidney disease, or end stage renal disease; I50.33 Acute on chronic diastolic (congestive) heart failure; N18.6 End stage renal disease; E11.22 Type 2 diabetes mellitus with diabetic chronic kidney disease; I21.A1 Myocardial infarction type 2; Z88.1 Allergy status to other antibiotic agents; Z88.0 Allergy status to penicillin; Z88.2 Allergy status to sulfonamides; Z88.8 Allergy status to other drugs, medicaments and biological substances; Z79.84 Long term (current) use of oral hypoglycemic drugs; Z79.82 Long term (current) use of aspirin; Z79.899 Other long term (current) drug therapy; Z99.2 Dependence on renal dialysis; K21.9 Gastro-esophageal reflux disease without esophagitis; E78.5 Hyperlipidemia, unspecified; E03.9 Hypothyroidism, unspecified; N25.81 Secondary hyperparathyroidism of renal origin; R71.8 Other abnormality of red blood cells
CPT/HCPCS: 36415; 70450-TC; 71045-TC; 75574; 80048-TC; 80053-TC; 80061-TC; 80076-TC; 82962-TC; 83735-TC; 83880; 84100-TC; 84484-TC; 85025-TC; 87081-TC; 90935-TC; 92526; 92611-TC; 93307-TC; 93880-TC; 97110-TC; 97112-TC; 97530-TC; G0378; J1815; J3490; J7050; Q0164; Q9967; U0003

== ENCOUNTER 2021-04-12 14:14 | Emergency (ER) | payer MEDICAID ==
[~2021-04-12] VITALS: Ht 160 cm; Wt 64.9 kg
[~2021-04-12 14:14] MED LIST: ACET-868 PO; AMLO-212 PO; ASPI-1420 PO; ATOR40TA PO; BUME1TAB8 PO; CALC667C6 PO; ERGO500093 PO; FERR325T24 PO; INSU100V7 SQ; LABE100T5 PO; LEVO50TA8 PO; LIDO30CR47 TP; MULT1TAB62 PO; NIFE90TA61 PO; OMEP20TA20 PO; POLY15DR40 EACHEYE; POLY17PO4 PO; PROC5TAB56 PO
--- NOTE | 2021-04-12 15:00 | NUR ---
Patient gris, from dialysis center, c/o weak and feeling sick. on room air, breathing evenly and unlabored. COnnected to the monitor and pulse ox. kept comfortable, will continue to monitor accordingly.
[2021-04-12 15:55] LABS: BASOPHILS % (AUTO) 0.7 % (0.0-2.0); EOSINOPHILS % (AUTO) 3.6 % (0.0-6.0); HEMATOCRIT 37 % (33-45); HEMOGLOBIN 11.8 g/dL (11.5-14.8); LYMPHOCYTES # (AUTO) 1.2 K/uL (0.8-4.8); LYMPHOCYTES % (AUTO) 21.3 % (20.0-44.0); MEAN CORPUSCULAR HGB CONC 32 g/dl (31.0-36.0); MEAN CORPUSCULAR VOLUME 74 fL (82-100); MONOCYTES # (AUTO) 0.5 K/uL (0.1-1.30); NEUTROPHILS # (AUTO) 3.7 K/uL (1.8-8.9); NEUTROPHILS % (AUTO) 65.4 % (43.0-81.0); PLATELET COUNT (AUTO) 256 K/uL (150-450); RED BLOOD CELL COUNT(AUTO) 4.96 MIL/uL (4.0-5.2); WHITE BLOOD COUNT (AUTO) 5.6 K/uL (4.3-11.0)
[2021-04-12 16:03] LABS: CALCIUM, SERUM 8.4 mg/dL (8.5-10.1); CARBON DIOXIDE 28 mmol/L (21-32); CHLORIDE 96 mmol/L (98-107); CREATININE 2.3 mg/dL (0.6-1.3); GLUCOSE 313 mg/dL (74-106); POTASSIUM 3.7 mmol/L (3.5-5.1); SODIUM SERUM 132 mmol/L (136-145); UREA NITROGEN, BLOOD 21 mg/dL (7-18)
--- NOTE | 2021-04-12 17:44 | NUR ---
CALLED [facility] [phone] PT FROM [facility] [id number] [facility] [address] PLEASE CALL [phone] FOR REPORT.
--- NOTE | 2021-04-12 17:49 | NUR ---
CALLED TRANSPORT [facility] WITH ETA OF 45 MINS.
--- NOTE | 2021-04-12 18:25 | NUR ---
called snf and spoke to Leah OTERO for reid.
[2021-04-12 18:56] VITALS: BP 157/63
--- NOTE | 2021-04-12 18:58 | NUR ---
patient picked up by private ambulance going back to SNF in no distress. IV removed. Catheter intact and site benign. Pressure and 4x4 applied to site. No bleeding noted.
== END 2021-04-12 18:57 ==
LOC: ER 15:03
DX: R53.1 Weakness (principal); E11.65 Type 2 diabetes mellitus with hyperglycemia; I13.0 Hypertensive heart and chronic kidney disease with heart failure and stage 1 through stage 4 chronic kidney disease, or unspecified chronic kidney disease; E11.22 Type 2 diabetes mellitus with diabetic chronic kidney disease; N18.9 Chronic kidney disease, unspecified; K21.9 Gastro-esophageal reflux disease without esophagitis; E03.9 Hypothyroidism, unspecified; Z98.890 Other specified postprocedural states; Z88.0 Allergy status to penicillin; Z88.2 Allergy status to sulfonamides; Z88.1 Allergy status to other antibiotic agents; Z88.8 Allergy status to other drugs, medicaments and biological substances; Z79.4 Long term (current) use of insulin; Z79.899 Other long term (current) drug therapy; Z79.82 Long term (current) use of aspirin
CPT/HCPCS: 36415; 71045-TC; 80048-TC; 82962-TC; 84484-TC; 85025-TC; 87081-TC

== ENCOUNTER 2022-03-23 11:59 | Inpatient (IN) | payer MEDICAID ==
[~2022-03-23] VITALS: Ht 157.5 cm; Wt 50.8 kg
--- NOTE | 2022-03-23 12:20 | NUR ---
PT ER BED 4. BP 165/75 ON ARRIVAL. SUGAR 242.
[2022-03-23] MEDS ORDERED: DOCU-141 PO (12:56)
[2022-03-23] MEDS ORDERED: FOLI0.8T23 PO (12:56)
[2022-03-23] MEDS ORDERED: CRAN400C PO (12:56)
[2022-03-23] MEDS ORDERED: SEVE800T8 PO (12:56)
[2022-03-23] MEDS ORDERED: AMIN887L PO (12:56)
[2022-03-23] MEDS ORDERED: BISA10SU11 RC (12:56)
[2022-03-23] MEDS ORDERED: INSU100V3 IJ (12:56)
[2022-03-23] MEDS ORDERED: LABETALOL 20 MG/4 ML VIAL IV ONE (13:00)
[2022-03-23] MEDS ORDERED: LABETALOL HCL IV 100MG VIAL ONE (13:04)
[2022-03-23 13:16] LABS: BASOPHILS % (AUTO) 0.3 % (0.0-2.0); EOSINOPHILS % (AUTO) 2.1 % (0.0-6.0); HEMATOCRIT 31 % (33-45); HEMOGLOBIN 9.9 g/dL (11.5-14.8); LYMPHOCYTES # (AUTO) 1.1 K/uL (0.8-4.8); MEAN CORPUSCULAR HGB CONC 32 g/dl (31.0-36.0); MEAN CORPUSCULAR VOLUME 70 fL (82-100); MONOCYTES % (AUTO) 12.1 % (2.0-12.0); NEUTROPHILS # (AUTO) 6.2 K/uL (1.8-8.9); NEUTROPHILS % (AUTO) 72.5 % (43.0-81.0); PLATELET COUNT (AUTO) 302 K/uL (150-450); RED BLOOD CELL COUNT(AUTO) 4.44 MIL/uL (4.0-5.2); WHITE BLOOD COUNT (AUTO) 8.6 K/uL (4.3-11.0)
--- NOTE | 2022-03-23 13:30 | NUR ---
22g placed in right hand.
--- NOTE | 2022-03-23 13:34 | NUR ---
bp 168/70. LABETOLOL given as ordered.
[2022-03-23 13:41] LABS: CALCIUM, SERUM 9.1 mg/dL (8.5-10.1); CARBON DIOXIDE 25 mmol/L (21-32); CHLORIDE 101 mmol/L (98-107); CREATININE 5.4 mg/dL (0.6-1.3); GLUCOSE 211 mg/dL (74-106); POTASSIUM 3.2 mmol/L (3.5-5.1); SODIUM SERUM 137 mmol/L (136-145); UREA NITROGEN, BLOOD 38 mg/dL (7-18)
[2022-03-23 13:47] LABS: ALANINE AMINOTRANSFERASE 13 U/L (12-78); ALBUMIN 2.9 g/dL (3.4-5.0); ALKALINE PHOSPHATASE 112 U/L (46-116); ASPARTATE AMINOTRANSFERASE 19 U/L (15-37); BILIRUBIN,TOTAL 0.4 mg/dL (0.2-1.0); TOTAL PROTEIN, SERUM 7.1 g/dL (6.4-8.2)
[2022-03-23] MEDS ORDERED: ASPIRIN 81 MG TAB.CHEW PO ONE (14:30)
--- NOTE | 2022-03-23 14:31 | NUR ---
PAGED EPIC CROCHETER
[2022-03-23] MEDS ORDERED: IOHEXOL-300 100 ML VIAL IV ONE (14:58)
[2022-03-23 15:34] LABS: EOSINOPHILS % (MANUAL) 6 % (0-4); LYMPHOCYTES % (MANUAL) 15 % (16-48); MONOCYTES % (MANUAL) 11 % (0-11.0); NEUTROPHILS % (MANUAL) 68 (42-76)
--- NOTE | 2022-03-23 15:52 | NUR ---
ROOM 110
--- NOTE | 2022-03-23 15:55 | NUR ---
COVID ANTIGEN SWAB DONE AND SENT TO THE LAB
[2022-03-23] MEDS ORDERED: DEXTROSE 50%-WATER 50 ML DISP.SYRIN IV PRN (17:00)
[2022-03-23] MEDS ORDERED: MAGNESIUM HYDROXIDE 30 ML UDC PO PRN (17:00)
[2022-03-23] MEDS ORDERED: ZOLPIDEM TARTRATE 5 MG TABLET PO PRN (17:00)
[2022-03-23] MEDS ORDERED: MAG HYDROX/AL HYDROX/SIMETH 30 ML UDC PO PRN (17:00)
[2022-03-23] MEDS ORDERED: Z GUARD REMEDY 4 OZ OINT TP PRN (17:00)
[2022-03-23] MEDS ORDERED: ONDANSETRON HCL/PF 4 MG/2 ML VIAL IVP PRN (17:00)
[2022-03-23] MEDS: INSULIN GLARGINE, 100 UNIT/ML CARTRIDGE SQ SCH (17:00)
[2022-03-23] MEDS ORDERED: ACETAMINOPHEN 325 MG TABLET PO PRN (17:00)
--- NOTE | 2022-03-23 17:10 | NUR ---
REPORT GIVEN TO DENIA OTERO FOR COLLIN.
--- NOTE | 2022-03-23 17:15 | NUR ---
RN NOTES INGRID CALLED FROM ER AND GAVE REPORT AT 1711.
--- NOTE | 2022-03-23 17:39 | NUR ---
PT TRANSFER TO ROOM 110. DENIA RN AT BEDSIDE.
[2022-03-23] MEDS: SEVELAMER CARBONATE 800 MG TABLET PO SCH (18:02)
[2022-03-23] MEDS: BLOOD SUGAR DIAGNOSTIC 1 EACH STRIP VI SCH ×2 (18:02→21:54)
[2022-03-23 18:36] VITALS: BP 188/80
[2022-03-23] MEDS: hydrALAZINE HCL IV 20 MG VIAL IV PRN (19:00)
--- NOTE | 2022-03-23 19:10 | NUR ---
RN NOTE RECEIVED PATIENT IN BED, YARIEL SPEAKING, TRANSLATION BRIGIDO USED FOR COMMUNICATION, AO X 3-4, IN NO ACUTE DISTRESS AT THIS TIME, RESPIRATION UNLABORED, SATURATION AT 98% ON ROOM AIR, HR IS 77. IV LINE AT R HAND 22G PATENT AND FLUSHING WELL, NO S/S OF INFECTION OR INFILTRATION. PERMACATH IN PLACE AT R CHEST. SAFETY MEASURES IMPLEMENTED. PATIENT BED ALARM IS ON. HEAD OF BED ELEVATED. BED IS LOCKED, IN LOWEST POSITION AND SIDE RAILS UP. CALL LIGHT WITHIN REACH OF THE PATIENT. WILL CONTINUE TO MONITOR AND REASSESS FOR ANY CHANGES.
--- NOTE | 2022-03-23 19:34 | NUR ---
MS RN OPENING NOTES RECEIVED PATIENT FROM ER AT 1738. PATIENT IS ALERT AND ORIENTED TIMES 3. NO PAIN NOTED. NO SOB NOTED. NO DISTRESS NOTED. IV ACCESS ON THE RIGHT HAND GAUGE 22 INTACT. NOTED WITH ELEVATED BLOOD PRESSURE. MAIN LANGUAGE IS SERBIAN, BUT PATIENT IS ABLE TO SPEAK LITTLE SWEDISH. BLOOD SUGAR CHECKED NOTED 57, ORANGE JUICE AND APPLE SAUCE GIVEN. ABLE TO SWALLOW ,NO ISSUES NOTED. CRUSHED PILL FOR ASPIRATION PRECAUTION. HD CATHETER NOTED ON THE RIGHT UPPER CHEST. OVERALL SKIN INTACT. NO BELONGINGS WITH PATIENT. ALL NEEDS ATTENDED. ALL SAFETY MEASURES IN PLACE. BED LOCKED IN THE LOWEST POSITION. CALL LIGHT AND TABLE IN EASY REACH. HEAD OF THE BED ELEVATED FOR ASPIRATION PRECAUTION. WILL ENDORSE FOR COLLIN.
--- NOTE | 2022-03-23 19:42 | NUR ---
MS RN CLOSING NOTES PATIENT AWAKE IN BED.PATIENT IS ALERT AND ORIENTED TIMES 3. NO PAIN NOTED. NO SOB NOTED. NO DISTRESS NOTED. IV ACCESS ON THE RIGHT HAND GAUGE 22 INTACT. NOTED WITH ELEVATED BLOOD PRESSURE. HYDRALAZINE PRN GIVEN AT 1900. VITAL SIGNS HU=633/80, P=68, T=97.5, O2= 99 % RA, RR=17.ABLE TO SWALLOW ,NO ISSUES NOTED. HD CATHETER NOTED ON THE RIGHT UPPER CHEST. OVERALL SKIN INTACT. N. ALL NEEDS ATTENDED. ALL SAFETY MEASURES IN PLACE. BED LOCKED IN THE LOWEST POSITION. CALL LIGHT AND TABLE IN EASY REACH. HEAD OF THE BED ELEVATED FOR ASPIRATION PRECAUTION. WILL ENDORSE FOR COLLIN.
--- NOTE | 2022-03-23 19:46 | NUR ---
RN NOTES HELD 1700 INSULIN PER SLIDING SCALE , SINCE BLOOD SUGAR WAS 57.
[2022-03-23 20:00] VITALS: BP 148/71
[2022-03-23] MEDS ORDERED: VANCOMYCIN 1 GM in IV D5W 250 ML IV ONE (20:00)
[2022-03-23] MEDS ORDERED: LABETALOL HCL (100MG) 100 MG TABLET PO SCH (21:00)
[2022-03-23] MEDS ORDERED: CLINDAMYCIN IV RTU IN D5W 900 MG/50 ML PIGGYBACK IV SCH (22:00)
[2022-03-23] MEDS: *INSULIN REGULAR(HUMULIN R)HUM 100 UNIT/ML VIAL SQ PRN (22:02)
[2022-03-23] MEDS ORDERED: CLINDAMYCIN 900 MG/6 ML VIAL ONE (22:30)
[2022-03-24 04:00] VITALS: BP 179/64
[2022-03-24] MEDS: hydrALAZINE HCL IV 20 MG VIAL IV PRN (05:51)
[2022-03-24 06:37] LABS: CALCIUM, SERUM 8.6 mg/dL (8.5-10.1); CARBON DIOXIDE 23 mmol/L (21-32); CHLORIDE 99 mmol/L (98-107); CREATININE 6.2 mg/dL (0.6-1.3); GLUCOSE 153 mg/dL (74-106); MAGNESIUM 2.3 mg/dL (1.8-2.4); PHOSPHORUS 3.2 mg/dL (2.5-4.9); POTASSIUM 4.1 mmol/L (3.5-5.1); SODIUM SERUM 134 mmol/L (136-145); UREA NITROGEN, BLOOD 42 mg/dL (7-18)
[2022-03-24 06:45] LABS: BASOPHILS % (AUTO) 0.3 % (0.0-2.0); EOSINOPHILS % (AUTO) 1.7 % (0.0-6.0); HEMATOCRIT 31 % (33-45); HEMOGLOBIN 9.9 g/dL (11.5-14.8); LYMPHOCYTES # (AUTO) 1.3 K/uL (0.8-4.8); LYMPHOCYTES % (AUTO) 16.2 % (20.0-44.0); MEAN CORPUSCULAR HGB CONC 32 g/dl (31.0-36.0); MEAN CORPUSCULAR VOLUME 70 fL (82-100); MONOCYTES % (AUTO) 12.4 % (2.0-12.0); NEUTROPHILS # (AUTO) 5.7 K/uL (1.8-8.9); NEUTROPHILS % (AUTO) 69.4 % (43.0-81.0); PLATELET COUNT (AUTO) 311 K/uL (150-450); RED BLOOD CELL COUNT(AUTO) 4.39 MIL/uL (4.0-5.2); WHITE BLOOD COUNT (AUTO) 8.2 K/uL (4.3-11.0)
[2022-03-24] MEDS: CLINDAMYCIN 900 MG in IV D5W 50 ML IV SCH ×3 (07:24→22:02)
--- NOTE | 2022-03-24 07:30 | NUR ---
MS RN OPENING NOTES RECEIVED PATIENT AWAKE. ALERT AND ORIENTED TIMES 3. NO PAIN NOTED. NO SOB NOTED. NO DISTRESS NOTED. IV ACCESS ON THE RIGHT HAND GAUGE 22 INTACT. MAIN LANGUAGE IS YARIEL, BUT PATIENT IS ABLE TO SPEAK LITTLE MAURITANIAN. ABLE TO SWALLOW CRUSHED PILL. HD CATHETER NOTED ON THE RIGHT UPPER CHEST. OVERALL SKIN INTACT. ALL SAFETY MEASURES IN PLACE. BED LOCKED IN THE LOWEST POSITION. CALL LIGHT AND TABLE IN EASY REACH. HEAD OF THE BED ELEVATED FOR ASPIRATION PRECAUTION. WILL CONTINUE TO MONITOR.
[2022-03-24] MEDS: BLOOD SUGAR DIAGNOSTIC 1 EACH STRIP VI SCH ×4 (08:05→22:06)
[2022-03-24] MEDS: INSULIN REGULAR, HUMAN 100 UNIT/ML 3 ML VIAL SQ PRN ×3 (08:10→16:36)
[2022-03-24] MEDS: INSULIN GLARGINE, 100 UNIT/ML CARTRIDGE SQ SCH ×2 (08:41→16:44)
[2022-03-24] MEDS: DOCUSATE SODIUM 100 MG CAPSULE PO SCH (08:42)
[2022-03-24] MEDS: AMLODIPINE BESYLATE 5 MG TABLET PO SCH (08:45)
[2022-03-24] MEDS: LEVOTHYROXINE SODIUM 50 MCG TABLET PO SCH (08:45)
[2022-03-24] MEDS: PANTOPRAZOLE 40 MG TABLET.DR PO SCH (08:46)
[2022-03-24] MEDS: SEVELAMER CARBONATE 800 MG TABLET PO SCH ×3 (08:46→17:00)
[2022-03-24] MEDS: NIFEdipine XL (30MG) 30 MG TAB PO SCH (08:47)
[2022-03-24] MEDS: POLYETHYLENE GLYCOL 3350 17 GM POWD.PACK PO SCH (08:47)
[2022-03-24] MEDS: LABETALOL HCL (100MG) 100 MG TABLET PO SCH ×2 (08:50→22:02)
[2022-03-24] MEDS ORDERED: SODIUM POLYSTYRENE SULF. PWD 15 GM UDC PO ONE (09:00)
[2022-03-24] MEDS ORDERED: hydrALAZINE HCL IV 20 MG VIAL IV PRN (09:00)
[2022-03-24] MEDS: ASPIRIN EC 81 MG TABLET.DR PO SCH (09:04)
--- NOTE | 2022-03-24 10:25 | NUR ---
RN NOTES: INFORMED CHARGE NURSE ABOUT ORDER TO RENEW HERNANDEZ CATHETER. VERIFIED PT DOES NOT HAVE A CATHETER IN PLACE. DID NOT INSERT FC ADVISED.
[2022-03-24 12:00] VITALS: BP 122/50
[2022-03-24] MEDS ORDERED: VANCOMYCIN 500 MG in IV D5W 100 ML IV PRN (12:00)
[2022-03-24 15:29] LABS: BAND % (MANUAL) 2 % (0.0-5.0); EOSINOPHILS % (MANUAL) 2 % (0-4); LYMPHOCYTES % (MANUAL) 20 % (16-48); METAMYELOCYTES % 1 % (0-0); MONOCYTES % (MANUAL) 11 % (0-11.0); NEUTROPHILS % (MANUAL) 64 (42-76)
--- NOTE | 2022-03-24 18:15 | NUR ---
RN NOTES INFORMED MD PT DOES NOT HAVE URINE OUTPUT. BLADDER SCAN PERFORMED SHOWED 250CC. PT HAS A HX OF HD. MD ADVISED TO CHECK TOMORROW IF DISTENDED. CHARGE NURSE AWARE.
--- NOTE | 2022-03-24 18:31 | NUR ---
RN CLOSING NOTES PATIENT SITTING IN BED, ALERT/ORIENTED X3. ON RA, TOLERATING WELL. BREATHING EVEN AND UNLABORED. NO SOB OR ANY ACUTE DISTRESS. IV ACCESS ON RT HAND #22G INTACT AND PATENT. NO S/S OF INFILTRATIONS. ALL SAFETY MEASURES IN PLACE. BED LOCKED IN LOWEST POSITION, BED ALARM ON. SIDE RAILS UP X2, CALL LIGHT WITHIN REACH. WILL ENDORSE TO NEXT NURSE ON DUTY FOR CONTINUITY OF CARE.
--- NOTE | 2022-03-24 19:15 | NUR ---
RN NOTES RN NOTES RECEIVED PT FOR CONTINUITY OF CARE. PATIENT A/OX3 IN NO S/SX OF ACUTE DISTRESS AT THIS TIME; CURRENTLY ON ROOM AIR WITH 02 SAT >95% AT THIS TIME.WITH IV ACCESS PATENT, INTACT AND FLUSHING WELL. WILL ENSURE SAFETY MEASURES WITHIN THE SHIFT. PATIENT BED ALARM IS ON. HEAD OF BED ELEVATED. BED IS LOCKED, IN LOWEST POSITION AND SIDE RAILS UP. CALL LIGHT WITHIN REACH OF THE PATIENT. WILL CONTINUE TO MONITOR AND REASSESS FOR ANY CHANGES AND WILL CARRY OUT ANY ONGOING AND ACTIVE MD ORDER.
[2022-03-24 20:00] VITALS: BP 133/50
[2022-03-24] MEDS: *INSULIN REGULAR(HUMULIN R)HUM 100 UNIT/ML VIAL SQ PRN (22:06)
[2022-03-25 04:00] VITALS: BP 126/49
--- NOTE | 2022-03-25 04:00 | NUR ---
RN NOTES PATIENT REMAINED TO BE IN NO SIGNS OF ACUTE RESPIRATORY DISTRESS , VITAL SIGNS STABLE AT THIS TIME. REGULAR TURNING AND REPOSITIONING DONE Q2H. AM PATIENT CARE DONE. WILL CONTINUE TO MONITOR AND REASSESS FOR ANY CHANGES THROUGHOUT THE SHIFT.
[2022-03-25] MEDS: CLINDAMYCIN 900 MG in IV D5W 50 ML IV SCH ×3 (04:40→21:40)
--- NOTE | 2022-03-25 04:58 | NUR ---
RN NOTES NO URINE OUTPUT NOTED FOR THE SHIFT, BLADDER SCAN DONE <280CC, PT NOT DISTENDED. ESTIMATED FLUID INTAKE OF PT FOR THE SHIFT AROUND [id number]. NOTIFIED ONCRYAN MEDRANO (LUIS,SMALL ANIMAL CARETAKER) PROVIDED STATUS UPDATE AND MENTIONED ABOUT PT HX OF ESRD. NO ORDERS FOR HD YET BUT MENTIONED BY DR. HDZ ON HIS MD NOTES "ON MAINTENANCE HD 3 HOURS EACH WITH DAILY EVALUATION. MD ACKNOWLEDGED. NO NEW ORDERS BUT WILL F/U AND ENDORSE IN AM SHIFT TO F/U WITH [facility]. FIELD PROJECT MANAGER MADE AWARE.
--- NOTE | 2022-03-25 06:36 | NUR ---
RN CLOSING NOTE: PATIENT REMAINS IN ROOM IN NO SIGNS OF RESPIRATORY DISTRESS, PATIENT STILL ON ROOM AIR;TOLERATING WELL SATURATING @ >95% SP02. SAFETY MEASURES IMPLEMENTED, BED IN LOWEST POSITION, LOCKED, SIDE RAILS UP, CALL LIGHT WITHIN REACH. ALL NEEDS AND ORDERS ADDRESSED DURING THE SHIFT. IV ACCESS MAINTAINED INTACT, SECURED AND FLUSHING WELL. ALL DUE MEDS GIVEN ORDERED & SCHEDULED ; PATIENT TOLERATED WELL. PATIENT KEPT CLEAN AND COMFORTABLE WITHIN THE SHIFT. NO URINE OUTPUT DURING THE SHIFT, DALE MEDRANO AWARE. WILL ENDORSE TO AM SHIFT TO FOLLOW THROUGH WITH BEBE MEDRANO AND TELLO FOR TX PLAN. PATIENT ENDORSED TO INCOMING SHIFT RN WITH STABLE VITAL SIGN AND FOR CONTINUITY OF CARE.
--- NOTE | 2022-03-25 07:30 | NUR ---
MS RN OPENING NOTES RECEIVED PATIENT AWAKE. ALERT AND ORIENTED TIMES 3. NO PAIN NOTED. NO SOB NOTED. NO DISTRESS NOTED. IV ACCESS ON THE RIGHT HAND GAUGE 22 INTACT. MAIN LANGUAGE IS YARIEL, BUT PATIENT IS ABLE TO SPEAK LITTLE UZBEK. ABLE TO SWALLOW CRUSHED PILL. HD CATHETER NOTED ON THE RIGHT UPPER CHEST. OVERALL SKIN INTACT. ALL SAFETY MEASURES IN PLACE. BED LOCKED IN THE LOWEST POSITION. CALL LIGHT AND TABLE IN EASY REACH. HEAD OF THE BED ELEVATED FOR ASPIRATION PRECAUTION. WILL CONTINUE TO MONITOR.
[2022-03-25] MEDS: BLOOD SUGAR DIAGNOSTIC 1 EACH STRIP VI SCH ×4 (07:52→22:19)
[2022-03-25] MEDS: LEVOTHYROXINE SODIUM 50 MCG TABLET PO SCH (07:53)
[2022-03-25] MEDS: SEVELAMER CARBONATE 800 MG TABLET PO SCH ×3 (07:54→17:03)
[2022-03-25] MEDS: INSULIN REGULAR, HUMAN 100 UNIT/ML 3 ML VIAL SQ PRN ×3 (08:18→16:34)
[2022-03-25] MEDS: DOCUSATE SODIUM 100 MG CAPSULE PO SCH (08:19)
[2022-03-25] MEDS: POLYETHYLENE GLYCOL 3350 17 GM POWD.PACK PO SCH (08:19)
[2022-03-25] MEDS: ASPIRIN EC 81 MG TABLET.DR PO SCH (08:19)
[2022-03-25] MEDS: AMLODIPINE BESYLATE 5 MG TABLET PO SCH (08:20)
[2022-03-25] MEDS: NIFEdipine XL (30MG) 30 MG TAB PO SCH (08:20)
[2022-03-25] MEDS: LABETALOL HCL (100MG) 100 MG TABLET PO SCH ×2 (08:21→21:40)
[2022-03-25] MEDS: PANTOPRAZOLE 40 MG TABLET.DR PO SCH (08:22)
[2022-03-25] MEDS: INSULIN GLARGINE, 100 UNIT/ML CARTRIDGE SQ SCH ×2 (08:25→16:40)
[2022-03-25 08:56] LABS: IRON, SERUM 63 ug/dl (50-175); TOTAL IRON BINDING CAPACITY 128 ug/dl (250-450)
--- NOTE | 2022-03-25 09:50 | NUR ---
RN NOTES EXPLAINED PROCEDURE FOR HEMODIALYSIS. PT AGREEABLE. CONSENT FOR HEMODIALYSIS OBTAINED.
[2022-03-25 12:00] VITALS: BP 99/51
--- NOTE | 2022-03-25 15:00 | NUR ---
RN NOTES PT TOLERATED HD PROCEDURE WELL WITH 2L OUTPUT. V/S STABLE. NOT IN DISTRESS.
--- NOTE | 2022-03-25 17:50 | NUR ---
MS RN CLOSING NOTES PATIENT AWAKE. ALERT AND ORIENTED TIMES 3. NO PAIN NOTED. NO SOB NOTED. NOT IN DISTRESS. IV ACCESS ON THE RIGHT HAND GAUGE 22 INTACT. MAIN LANGUAGE IS ICELANDIC, BUT PATIENT IS ABLE TO SPEAK LITTLE OCCITAN. ABLE TO SWALLOW PILL. HD CATHETER NOTED ON THE RIGHT UPPER CHEST. OVERALL SKIN INTACT. ALL SAFETY MEASURES IN PLACE. BED LOCKED IN THE LOWEST POSITION. CALL LIGHT AND TABLE IN EASY REACH. HEAD OF THE BED ELEVATED FOR ASPIRATION PRECAUTION. WILL CONTINUE TO MONITOR.
--- NOTE | 2022-03-25 19:20 | NUR ---
RN OPENING NOTES RECEIVED CARE OF PATIENT FROM AM NURSE, PATIENT IN BED, A/O X3, NON-IRAQI SPEAKING, ABLE TO COMMUNICATE WITH FACIAL AND HAND GESTURES. PATIENT IS ON ROOM AIR, O2 SAT 97%, NO SOB NOTED. NO SIGNIFICANT FINDINGS UPON INITIAL NURSING ASSESSMENTS. ALL SAFETY MEASURES IN PLACE. BED LOCKED IN THE LOWEST POSITION. CALL LIGHT AND TABLE IN EASY REACH. HEAD OF THE BED ELEVATED FOR ASPIRATION PRECAUTION. WILL CONTINUE TO MONITOR PATIENT.
[2022-03-25 20:00] VITALS: BP 143/58
[2022-03-25] MEDS: *INSULIN REGULAR(HUMULIN R)HUM 100 UNIT/ML VIAL SQ PRN (22:20)
[2022-03-26 04:00] VITALS: BP 150/71
[2022-03-26] MEDS: CLINDAMYCIN 900 MG in IV D5W 50 ML IV SCH ×2 (05:27→12:23)
[2022-03-26 06:31] LABS: BASOPHILS % (AUTO) 0.3 % (0.0-2.0); EOSINOPHILS % (AUTO) 1.9 % (0.0-6.0); HEMATOCRIT 34 % (33-45); HEMOGLOBIN 10.9 g/dL (11.5-14.8); LYMPHOCYTES # (AUTO) 0.9 K/uL (0.8-4.8); LYMPHOCYTES % (AUTO) 15.9 % (20.0-44.0); MEAN CORPUSCULAR HGB CONC 32 g/dl (31.0-36.0); MEAN CORPUSCULAR VOLUME 69 fL (82-100); MONOCYTES # (AUTO) 0.6 K/uL (0.1-1.30); MONOCYTES % (AUTO) 11.2 % (2.0-12.0); NEUTROPHILS % (AUTO) 70.7 % (43.0-81.0); PLATELET COUNT (AUTO) 346 K/uL (150-450); RED BLOOD CELL COUNT(AUTO) 4.88 MIL/uL (4.0-5.2); WHITE BLOOD COUNT (AUTO) 5.6 K/uL (4.3-11.0)
--- NOTE | 2022-03-26 06:31 | NUR ---
RN CLOSING NOTES WILL ENDORSE CARE OF PATIENT TO AM NURSE WITH NO SIGNIFICANT CHANGES TO PATIENT'S CONDITION. NO SIGNIFICANT FINDINGS UPON ALL NURSING ASSESSMENTS. ALL DUE MEDS ORDERED. PATIENT'S NEEDS ANTICIPATED AND MET THROUGHOUT SHIFT. SAFETY MEASURES IMPLEMENTED PER HOSPITAL PROTOCOLS. WILL ENDORSE TO AM NURSE FOR CONTINUITY OF CARE.
[2022-03-26 07:10] LABS: CALCIUM, SERUM 8.5 mg/dL (8.5-10.1); CARBON DIOXIDE 28 mmol/L (21-32); CHLORIDE 92 mmol/L (98-107); CREATININE 4.8 mg/dL (0.6-1.3); GLUCOSE 78 mg/dL (74-106); POTASSIUM 4.1 mmol/L (3.5-5.1); SODIUM SERUM 129 mmol/L (136-145); UREA NITROGEN, BLOOD 24 mg/dL (7-18)
[2022-03-26] MEDS: BLOOD SUGAR DIAGNOSTIC 1 EACH STRIP VI SCH ×2 (07:37→11:37)
--- NOTE | 2022-03-26 07:39 | NUR ---
RN NOTE PATIENT RECEIVED IN BED, RESTING. PATIENT ON RA WITH NO SIGNS OF LABORED BREATHING AT THIS TIME. RIGHT HAND 22G AND RIGHT CW PERMACATH IN PLACE. BED LOCKED AND IN LOWEST POSITION, CALL LIGHT WITHIN REACH, 2 SIDE RAILS UP.
[2022-03-26 08:00] VITALS: BP 165/99
[2022-03-26] MEDS: ASPIRIN EC 81 MG TABLET.DR PO SCH (08:03)
[2022-03-26] MEDS: NIFEdipine XL (30MG) 30 MG TAB PO SCH (08:03)
[2022-03-26] MEDS: POLYETHYLENE GLYCOL 3350 17 GM POWD.PACK PO SCH (08:03)
[2022-03-26 08:04] VITALS: BP 169/99
[2022-03-26] MEDS: LEVOTHYROXINE SODIUM 50 MCG TABLET PO SCH (08:04)
[2022-03-26] MEDS: DOCUSATE SODIUM 100 MG CAPSULE PO SCH (08:04)
[2022-03-26] MEDS: LABETALOL HCL (100MG) 100 MG TABLET PO SCH (08:04)
[2022-03-26] MEDS: PANTOPRAZOLE 40 MG TABLET.DR PO SCH (08:04)
[2022-03-26] MEDS: SEVELAMER CARBONATE 800 MG TABLET PO SCH ×2 (08:04→12:22)
[2022-03-26] MEDS: AMLODIPINE BESYLATE 5 MG TABLET PO SCH (08:04)
[2022-03-26] MEDS: INSULIN GLARGINE, 100 UNIT/ML CARTRIDGE SQ SCH (08:05)
--- NOTE | 2022-03-26 08:05 | NUR ---
RN NOTE SUGAR 70 THIS AM. ALL INSULIN HELD.
[2022-03-26] MEDS ORDERED: CLIN900P10 IV (09:13)
[2022-03-26] MEDS ORDERED: LABE100T5 PO (09:13)
--- NOTE | 2022-03-26 11:22 | NUR ---
RN NOTE REPORT GIVEN TO MICHAEL OTERO AT [facility].
[2022-03-26 11:24] LABS: BAND % (MANUAL) 2 % (0.0-5.0); EOSINOPHILS % (MANUAL) 3 % (0-4); LYMPHOCYTES % (MANUAL) 17 % (16-48); MONOCYTES % (MANUAL) 11 % (0-11.0); NEUTROPHILS % (MANUAL) 67 (42-76)
--- NOTE | 2022-03-26 15:10 | NUR ---
RN NOTE PATIENT DISCHARGED ORDERED. RIGHT HAND IV LEFT IN PLACE PER SNF REQUEST. PT STABLE ON RA AT TIME OF DISCHARGE.
== END 2022-03-26 15:10 | DRG 114 ==
LOC: ER 12:06 → MEDSG1 17:14
PROVIDERS: ADMIT Internal Medicine; ATTEND Internal Medicine
PROC: 5A1D70Z Performance of Urinary Filtration, Intermittent, Less than 6 Hours Per Day (ICD-10-PCS; principal; 2022-03-25)
DX: K04.7 Periapical abscess without sinus (principal); I21.A1 Myocardial infarction type 2; N17.9 Acute kidney failure, unspecified; E87.1 Hypo-osmolality and hyponatremia; D63.8 Anemia in other chronic diseases classified elsewhere; I13.2 Hypertensive heart and chronic kidney disease with heart failure and with stage 5 chronic kidney disease, or end stage renal disease; I50.32 Chronic diastolic (congestive) heart failure; N18.6 End stage renal disease; I16.0 Hypertensive urgency; E11.22 Type 2 diabetes mellitus with diabetic chronic kidney disease; D50.9 Iron deficiency anemia, unspecified; Z88.1 Allergy status to other antibiotic agents; Z88.0 Allergy status to penicillin; Z88.2 Allergy status to sulfonamides; Z88.8 Allergy status to other drugs, medicaments and biological substances; Z79.4 Long term (current) use of insulin; Z79.899 Other long term (current) drug therapy; E87.5 Hyperkalemia; E03.9 Hypothyroidism, unspecified; I25.2 Old myocardial infarction; Z99.2 Dependence on renal dialysis; Z86.73 Personal history of transient ischemic attack (TIA), and cerebral infarction without residual deficits; L03.211 Cellulitis of face
CPT/HCPCS: 36415; 70487-TC; 71045-TC; 80048-TC; 80053-TC; 80202-TC; 82962-TC; 83540-TC; 83735-TC; 84100-TC; 84484-TC; 85025-TC; 86706; 87040-TC; 87081-TC; 87340; 90935-TC; C9803; G0378; J0360; J1815; J3370; J3490; J7030; J7050; J7060; Q9967

== ENCOUNTER 2022-05-03 06:30 | Emergency (ER) | payer MEDICAID ==
[~2022-05-03] VITALS: Ht 152.4 cm; Wt 72.6 kg
[~2022-05-03 06:30] MED LIST changes: +AMIN887L PO; -AMLO-212 PO; +BISA10SU11 RC; -CALC667C6 PO; +CLIN900P10 IV; +CRAN400C PO; +DOCU-141 PO; -ERGO500093 PO; -FERR325T24 PO; +FOLI0.8T23 PO; +INSU100V3 IJ; -MULT1TAB62 PO; -PROC5TAB56 PO; +SEVE800T8 PO
--- NOTE | 2022-05-03 06:31 | NUR ---
DMITRIY 77 FROM [facility] FOR C/O LOW BLOOD SUGAR OF 40. 125 ML OF D10 GIVEN FOOD STYLIST. L WRIST #20G S/L PATENT AND INTACT ESTABLISHED FOOD STYLIST. PT A/OX3; PIT[place] ISLANDER SPEAKING. TOLERATING R/A WELL WITH NO RESP DISTRESS. CONNECTED PT TO POX AND MONITOR. SAFETY MEASURES IN PLACE.
--- NOTE | 2022-05-03 06:47 | NUR ---
POC BS [id number]
--- NOTE | 2022-05-03 06:57 | NUR ---
DR. KARMEN MEDRANO AT PT'S BEDSIDE
--- NOTE | 2022-05-03 07:00 | NUR ---
BINGO FLOATER AT PT'S BEDSIDE
[2022-05-03 07:20] LABS: BASOPHILS % (AUTO) 0.8 % (0.0-2.0); EOSINOPHILS % (AUTO) 0.4 % (0.0-6.0); HEMATOCRIT 43 % (33-45); HEMOGLOBIN 13.4 g/dL (11.5-14.8); LYMPHOCYTES # (AUTO) 0.7 K/uL (0.8-4.8); LYMPHOCYTES % (AUTO) 10.8 % (20.0-44.0); MEAN CORPUSCULAR HGB CONC 31 g/dl (31.0-36.0); MEAN CORPUSCULAR VOLUME 74 fL (82-100); MONOCYTES # (AUTO) 0.2 K/uL (0.1-1.30); MONOCYTES % (AUTO) 2.7 % (2.0-12.0); NEUTROPHILS # (AUTO) 5.3 K/uL (1.8-8.9); NEUTROPHILS % (AUTO) 85.3 % (43.0-81.0); PLATELET COUNT (AUTO) 226 K/uL (150-450); RED BLOOD CELL COUNT(AUTO) 5.79 MIL/uL (4.0-5.2); WHITE BLOOD COUNT (AUTO) 6.2 K/uL (4.3-11.0)
[2022-05-03 07:42] LABS: ALANINE AMINOTRANSFERASE 22 U/L (12-78); ALBUMIN 3.8 g/dL (3.4-5.0); ALKALINE PHOSPHATASE 114 U/L (46-116); ASPARTATE AMINOTRANSFERASE 32 U/L (15-37); BILIRUBIN,DIRECT 0.1 mg/dL (0.0-0.2); BILIRUBIN,TOTAL 0.6 mg/dL (0.2-1.0); CALCIUM, SERUM 9.4 mg/dL (8.5-10.1); CARBON DIOXIDE 23 mmol/L (21-32); CHLORIDE 99 mmol/L (98-107); CREATININE 4.5 mg/dL (0.6-1.3); GLUCOSE 179 mg/dL (74-106); SODIUM SERUM 133 mmol/L (136-145); TOTAL PROTEIN, SERUM 8.3 g/dL (6.4-8.2); UREA NITROGEN, BLOOD 51 mg/dL (7-18)
--- NOTE | 2022-05-03 10:28 | NUR ---
[facility] CALLED FOR TRANSPORT ETA 30 MINS.
--- NOTE | 2022-05-03 11:14 | NUR ---
IV removed. Catheter intact and site benign. Pressure and 4x4 applied to site. No bleeding noted.Patient discharged to [facility] stable condition. Written and verbal after care instructions given. Report given to ambulance staff.
--- NOTE | 2022-05-03 11:14 | NUR ---
REPORT GIVEN TO NURSE DORIE FOR COLLIN
[2022-05-03 11:15] VITALS: BP 140/65
== END 2022-05-03 11:15 | disposition home or self-care (01) ==
LOC: ER 06:33
DX: E16.2 Hypoglycemia, unspecified (principal); I13.2 Hypertensive heart and chronic kidney disease with heart failure and with stage 5 chronic kidney disease, or end stage renal disease; E08.22 Diabetes mellitus due to underlying condition with diabetic chronic kidney disease; N18.6 End stage renal disease; E78.5 Hyperlipidemia, unspecified; Z99.2 Dependence on renal dialysis; Z88.0 Allergy status to penicillin; Z88.2 Allergy status to sulfonamides; Z88.8 Allergy status to other drugs, medicaments and biological substances; Z79.899 Other long term (current) drug therapy; Z79.4 Long term (current) use of insulin
CPT/HCPCS: 36415; 80048-TC; 80076-TC; 82945-TC; 82962-TC; 85025-TC

== ENCOUNTER 2022-05-23 15:39 | Emergency (ER) | payer MEDICAID ==
[~2022-05-23] VITALS: Ht 152.4 cm; Wt 54.4 kg
[~2022-05-23 15:39] MED LIST changes: -INSU100V3 IJ; +INSU100V3 SQ
--- NOTE | 2022-05-23 15:59 | NUR ---
DMITRIY, WAS RECEIVING DIALYSIS B/P HTN, B/P IS 214/94 AT THIS TIME, 100% O2 66 HR, NC 3 LPM
[2022-05-23 16:40] LABS: BASOPHILS % (AUTO) 0.9 % (0.0-2.0); EOSINOPHILS % (AUTO) 2.9 % (0.0-6.0); HEMATOCRIT 40 % (33-45); HEMOGLOBIN 12.5 g/dL (11.5-14.8); LYMPHOCYTES # (AUTO) 1.1 K/uL (0.8-4.8); LYMPHOCYTES % (AUTO) 24.2 % (20.0-44.0); MEAN CORPUSCULAR HGB CONC 31 g/dl (31.0-36.0); MEAN CORPUSCULAR VOLUME 74 fL (82-100); MONOCYTES # (AUTO) 0.4 K/uL (0.1-1.30); MONOCYTES % (AUTO) 8.8 % (2.0-12.0); NEUTROPHILS # (AUTO) 2.8 K/uL (1.8-8.9); NEUTROPHILS % (AUTO) 63.2 % (43.0-81.0); PLATELET COUNT (AUTO) 200 K/uL (150-450); RED BLOOD CELL COUNT(AUTO) 5.39 MIL/uL (4.0-5.2); WHITE BLOOD COUNT (AUTO) 4.5 K/uL (4.3-11.0)
[2022-05-23] MEDS ORDERED: INSU100V7 SQ (16:56)
[2022-05-23] MEDS ORDERED: CRAN425C6 PO (16:56)
[2022-05-23] MEDS ORDERED: NA P133E RC (16:56)
[2022-05-23] MEDS ORDERED: CLON0.1T PO (16:56)
[2022-05-23] MEDS ORDERED: LABE200T5 PO (16:56)
[2022-05-23] MEDS ORDERED: GUAI100S11 PO (16:56)
[2022-05-23 17:03] LABS: CALCIUM, SERUM 8.7 mg/dL (8.5-10.1); CARBON DIOXIDE 26 mmol/L (21-32); CHLORIDE 103 mmol/L (98-107); CREATININE 3.3 mg/dL (0.6-1.3); GLUCOSE 112 mg/dL (74-106); POTASSIUM 4.2 mmol/L (3.5-5.1); SODIUM SERUM 136 mmol/L (136-145); UREA NITROGEN, BLOOD 29 mg/dL (7-18)
[2022-05-23] MEDS ORDERED: CLONIDINE HCL 0.1 MG TABLET PO ONE (18:00)
[2022-05-23] MEDS ORDERED: CLONIDINE HCL 0.1 MG TABLET ONE (18:12)
--- NOTE | 2022-05-23 18:46 | NUR ---
TOLERATING ROOM AIR, KEEPS PULLING OFF NC, MAINTAINING BETWEEN 96-100% ON ROOM AIR
[2022-05-23] MEDS ORDERED: hydrALAZINE HCL IV 20 MG VIAL IV ONE (21:00)
--- NOTE | 2022-05-23 22:18 | NUR ---
[facility] CALLED FOR BLS BACK TO SNF PER [facility] ETA - 30 MIN
[2022-05-23 23:02] VITALS: BP 160/83
--- NOTE | 2022-05-23 23:03 | NUR ---
[facility] AT PT'S BEDSIDE. REPORT GIVEN TO EMT FOR PT TO DC TO [facility]
== END 2022-05-23 23:24 ==
LOC: ER 15:40
DX: I13.2 Hypertensive heart and chronic kidney disease with heart failure and with stage 5 chronic kidney disease, or end stage renal disease (principal); E11.22 Type 2 diabetes mellitus with diabetic chronic kidney disease; N18.6 End stage renal disease; I50.9 Heart failure, unspecified; Z99.2 Dependence on renal dialysis; E78.5 Hyperlipidemia, unspecified; I25.2 Old myocardial infarction; Z86.73 Personal history of transient ischemic attack (TIA), and cerebral infarction without residual deficits; Z88.0 Allergy status to penicillin; Z88.2 Allergy status to sulfonamides; Z88.1 Allergy status to other antibiotic agents; Z88.8 Allergy status to other drugs, medicaments and biological substances; Z79.899 Other long term (current) drug therapy; Z79.4 Long term (current) use of insulin; Z79.82 Long term (current) use of aspirin
CPT/HCPCS: 99285; 96374; 71045; 93005; 85025; 80048; 36415; 84484; J0360

== ENCOUNTER 2022-12-26 12:03 | Inpatient (IN) | payer MEDICAID ==
[~2022-12-26] VITALS: Ht 152.4 cm; Wt 54.4 kg
[~2022-12-26 12:03] MED LIST changes: -CLIN900P10 IV; +CLON0.1T PO; -CRAN400C PO; +CRAN425C6 PO; -FOLI0.8T23 PO; +GUAI100S11 PO; -LABE100T5 PO; +LABE200T5 PO; +NA P133E RC; -OMEP20TA20 PO
--- NOTE | 2022-12-26 13:10 | NUR ---
covid swab taken and sent to lab.
[2022-12-26 13:28] LABS: BASOPHILS # (AUTO) 0.1 K/uL (0.0-0.2); BASOPHILS % (AUTO) 0.9 % (0.0-2.0); EOSINOPHILS % (AUTO) 3.8 % (0.0-6.0); HEMATOCRIT 40 % (33-45); HEMOGLOBIN 12.1 g/dL (11.5-14.8); LYMPHOCYTES # (AUTO) 0.7 K/uL (0.8-4.8); MEAN CORPUSCULAR HGB CONC 30 g/dl (31.0-36.0); MEAN CORPUSCULAR VOLUME 77 fL (82-100); MONOCYTES # (AUTO) 0.4 K/uL (0.1-1.30); MONOCYTES % (AUTO) 7.7 % (2.0-12.0); NEUTROPHILS # (AUTO) 4.2 K/uL (1.8-8.9); NEUTROPHILS % (AUTO) 74.6 % (43.0-81.0); PLATELET COUNT (AUTO) 280 K/uL (150-450); RED BLOOD CELL COUNT(AUTO) 5.17 MIL/uL (4.0-5.2); WHITE BLOOD COUNT (AUTO) 5.7 K/uL (4.3-11.0)
--- NOTE | 2022-12-26 13:30 | NUR ---
PT IN BED 7, A/OX0 DOES NOT SPEAK NEPALESE. TOLORATING ROOM AIR. C/O FAINTED DUING DIALYSIS. CONNECTYED TO BED SIDE NOITON VITAL WNL. IN LOW FOWLERS COVERED WITH WARM BLANKETS SIDE RAILS UP, BED LOCKED IN LOWEST POSTION.
--- NOTE | 2022-12-26 13:34 | NUR ---
20G RFA BLOOD AND CULTURES DRAWN AND SENT TO LAB.
--- NOTE | 2022-12-26 13:35 | NUR ---
COVID SWAB TAKEN
[2022-12-26 13:54] LABS: CALCIUM, SERUM 9.2 mg/dL (8.5-10.1); CARBON DIOXIDE 24 mmol/L (21-32); CHLORIDE 101 mmol/L (98-107); CREATININE 3.2 mg/dL (0.6-1.3); GLUCOSE 74 mg/dL (74-106); POTASSIUM 3.1 mmol/L (3.5-5.1); SODIUM SERUM 136 mmol/L (136-145); UREA NITROGEN, BLOOD 26 mg/dL (7-18)
[2022-12-26 14:01] LABS: ALANINE AMINOTRANSFERASE 20 U/L (12-78); ALBUMIN 4.1 g/dL (3.4-5.0); ALKALINE PHOSPHATASE 108 U/L (46-116); ASPARTATE AMINOTRANSFERASE 33 U/L (15-37); BILIRUBIN,DIRECT 0.1 mg/dL (0.0-0.2); BILIRUBIN,TOTAL 0.8 mg/dL (0.2-1.0); TOTAL PROTEIN, SERUM 7.9 g/dL (6.4-8.2)
[2022-12-26] MEDS ORDERED: DEXTROSE 50%-WATER 50 ML DISP.SYRIN IVP ONE (15:00)
--- NOTE | 2022-12-26 15:17 | NUR ---
hand off report given to tk aguilar
--- NOTE | 2022-12-26 16:05 | NUR ---
PATIENT TRANSFER TO 3W W/ ACLS PROTOCAL 3W NURSE AT BEDSIDE TO RECEIVE PATIENT VITAL WNL THROUGHT TRANSFER.
[2022-12-26] MEDS ORDERED: ONDANSETRON HCL/PF 4 MG/2 ML VIAL IVP PRN (16:30)
[2022-12-26] MEDS ORDERED: Z GUARD REMEDY 4 OZ OINT TP PRN (16:30)
[2022-12-26] MEDS ORDERED: ZOLPIDEM TARTRATE 5 MG TABLET PO PRN (16:30)
[2022-12-26] MEDS ORDERED: MAG HYDROX/AL HYDROX/SIMETH 30 ML UDC PO PRN (16:30)
[2022-12-26] MEDS ORDERED: MAGNESIUM HYDROXIDE 30 ML UDC PO PRN (16:30)
[2022-12-26] MEDS ORDERED: ACETAMINOPHEN 325 MG TABLET PO PRN (16:30)
--- NOTE | 2022-12-26 16:30 | NUR ---
RN NOTES - CALLED PHARMACY TO FOLLOW UP ON THE IVF MIX ORDERED. ACKNOWLEDGED.
--- NOTE | 2022-12-26 16:30 | NUR ---
RN NOTES - MD ALLAN AWARE OF THE HIGH BP AND TROPONIN READING - ORDERED HYDRALAZINE 25 MG PO Q6H PRN
--- NOTE | 2022-12-26 16:35 | NUR ---
CELLOPHANE BATH MIXER ADMITTING NOTES ADMITTED THIS 76 FEMALE TO UNIT AT 1625 VIA GURNEY WITH DX OF HYPOTENSION, AMS. PT IS AOX1, HEBREW SPEAKING, UNABLE TO MAKE HER NEEDS KNOWN, REFUSES TO OPEN HER EYES, MUMBLES WORDS, WON'T RESPOND TO HEBREW TRANSLATION, CROSSED HER ARMS. PT IS STABLE ON ROOM AIR WITH NO ACUTE RESPIRATORY DISTRESS NOTED. IV ACCESS IS NOTED ON RFA G#20, PATENT AND INTACT, INFUSING WELL. TELEMONITORING IS SHOWING SINUS RHYTHM AT 65 BPM. LUNGS CLEAR ON AUSCULTATION BILATERALLY, ABDOMEN SOFT AND NON-TENDER, NOT DISTENDED AND WITH + BOWEL SOUNDS ON ALL QUADRANTS. PATIENT IS NOTED TO HAVE RCW SUBCLAVIAN HD CATH WITH INTACT DRESSING. NO NOTED SKIN ISSUES AT THIS TIME BUT TOOK PICTURES OF BUTTOCKS (SCARRING), FEET (DRYNESS) FOR REFERENCE. FILED ON CHART. SAFETY MEASURES IMPLEMENTED: BED PLACED IN LOWEST AND LOCKED POSITION, SIDE RAILS UP X2, BED ALARM ALL, CALL LIGHT AND TRAY TABLE WITHIN EASY REACH. WILL CONTINUE TO MONITOR.
[2022-12-26] MEDS ORDERED: hydrALAZINE HCL 25 MG TABLET PO PRN (17:00)
--- NOTE | 2022-12-26 17:00 | NUR ---
RN NOTES - PT REFUSED ECHOCARDIOGRAM PROCEDURE, CROSSED HER ARMS, SCREAMING WITH EYES CLOSED
[2022-12-26] MEDS: Sodium Chloride 154 MEQ in IV 10% DEXTROSE 1,000 ML IV SCH (17:49)
--- NOTE | 2022-12-26 17:49 | NUR ---
RN NOTES - BP 200/85 RR 65, GIVEN IV HYDRALAZINE 10 MG ORDERED, WILL CONTINUE TO MONITOR.
--- NOTE | 2022-12-26 18:02 | NUR ---
RN NOTES - HYDRALAZINE PO CHANGED TO HYDRALAZINE IV 10 MG Q6H PRN
[2022-12-26] MEDS: hydrALAZINE HCL IV 20 MG VIAL IV PRN (18:33)
--- NOTE | 2022-12-26 19:15 | NUR ---
BUILDING MAINTENANCE WORKER CLOSING NOTES PATIENT IS LYING IN BED WITH HOB SLIGHTLY ELEVATED, AOX1, STILL STABLE ON ROOM AIR, NO ACUTE DISTRESS, BP IS STILL ELEVATED AT 180/80 WITH HR OF 60 EVEN AFTER HYDRALAZINE 10 MG IV ORDERED. TELEMONITORING IS SHOWING SR WITH 65 BPM. IV ACCESS IS ON RFA G#20 WITH IVF OF NACL 154 MEQ IN IV DEXTROSE 10% @45 ML/HR RUNNING AND INFUSING WELL. PATIENT IS WITH SCD ON BOTH LEGS. PLACED PATIENT ON NPO DUE TO ASPIRATION PRECAUTION, DOESNT FOLLOW COMMANDS AND MD IS AWARE. FLACC SCORE IS 0. KEPT PT SAFE - BED AT LOWEST AND LOCKED POSITION, SIDE RAILS X2, BED ALARM ON, TRAY TABLE AND CALL LIGHT WITHIN EASY REACH. ENDORSED TO HEALTH PROMOTION COORDINATOR NURSE.
--- NOTE | 2022-12-26 19:45 | NUR ---
WEB MARKETING INTERN NOTE RECEIVED LYING ON BED,A/O X1,CONTRACTED ON BOTH LOWER EXTREMITIES,PRESENT IVF D10 1 LITER WITH SODIUM CHLORIDE 154 MEQ INFUSING AT 45ML/HR RATE ON RIGHT FOREARM SALINE LOCK VIA IV PUMP,WITH RIGHT CHEST WALL CATHETER FOR HD ACCESS.HAD ONE TODAY ON HER [facility].BLOOD PRESSURE ON THE HIGH SIDE.WAS JUST GIVEN HYDRALAZINE 10MG IV ORDERED,WILL CONTINUE TO MONITOR STATUS.
[2022-12-26 21:19] VITALS: BP 208/81
[2022-12-26 22:00] VITALS: BP 171/58
[2022-12-26 23:57] VITALS: BP_SYST 191; BP_SYST 201; BP_DIAS 49; BP_DIAS 70
[2022-12-27] VITALS (7 sets, daily range): BP systolic 153–202; BP diastolic 63–96
[2022-12-27] MEDS: hydrALAZINE HCL IV 20 MG VIAL IV PRN ×2 (00:18→20:19)
--- NOTE | 2022-12-27 00:18 | NUR ---
PERSONALIZED LIVING ASSISTANT NOTES BP 191/70 PULSE -61.HYDRALAZINE 10MG GIVEN SLOW IV PUSH ORDERED FOR SBP > THAN 170.WILL CONTINUE TO MONITOR
--- NOTE | 2022-12-27 06:33 | NUR ---
CONSULTING GROUP ANALYST NOTES ON BED SLEEPING,WITH LIMITED VERBAL RESPONSE,FOR HD TODAY,BLOOD PRESSURE IMPROVED.NO DISTRESS.
--- NOTE | 2022-12-27 07:05 | NUR ---
RN OPENING NOTE- PATIENT IS ASLEEP, EASILY AWAKENED, AOX1, STILL STABLE ON ROOM AIR, NO ACUTE DISTRESS, IV ACCESS IS ON RFA G#20 WITH IVF OF NACL MEQ IN IV DEXTROSE 10% @45 ML/HR RUNNING AND INFUSING WELL. PATIENT IS WITH SCD ON BOTH LEGS. PLACED PATIENT ON NPO DUE TO ASPIRATION PRECAUTION, SWALLOW EVAL COMPLETE THIS MORNING BY ST. DOESNT FOLLOW COMMANDS. KEPT PT SAFE - BED AT LOWEST AND LOCKED POSITION, SIDE RAILS X2, BED ALARM ON, MONITOR / ASSIST. HD LATER TODAY
[2022-12-27 07:36] LABS: BASOPHILS % (AUTO) 0.6 % (0.0-2.0); EOSINOPHILS % (AUTO) 5.5 % (0.0-6.0); HEMATOCRIT 36 % (33-45); HEMOGLOBIN 11.4 g/dL (11.5-14.8); LYMPHOCYTES # (AUTO) 1.2 K/uL (0.8-4.8); LYMPHOCYTES % (AUTO) 21.5 % (20.0-44.0); MEAN CORPUSCULAR HGB CONC 31 g/dl (31.0-36.0); MEAN CORPUSCULAR VOLUME 76 fL (82-100); MONOCYTES # (AUTO) 0.6 K/uL (0.1-1.30); MONOCYTES % (AUTO) 11.3 % (2.0-12.0); NEUTROPHILS # (AUTO) 3.3 K/uL (1.8-8.9); NEUTROPHILS % (AUTO) 61.1 % (43.0-81.0); PLATELET COUNT (AUTO) 247 K/uL (150-450); WHITE BLOOD COUNT (AUTO) 5.3 K/uL (4.3-11.0)
[2022-12-27 07:41] LABS: SERUM AMMONIA 13 umol/L (11-32)
[2022-12-27] MEDS: PANTOPRAZOLE 40 MG TABLET.DR PO SCH (07:54)
[2022-12-27 09:27] LABS: CALCIUM, SERUM 9.3 mg/dL (8.5-10.1); CARBON DIOXIDE 19 mmol/L (21-32); CHLORIDE 104 mmol/L (98-107); CREATININE 4.4 mg/dL (0.6-1.3); GLUCOSE 75 mg/dL (74-106); MAGNESIUM 2.3 mg/dL (1.8-2.4); POTASSIUM 3.2 mmol/L (3.5-5.1); SODIUM SERUM 138 mmol/L (136-145); UREA NITROGEN, BLOOD 33 mg/dL (7-18)
[2022-12-27] MEDS ORDERED: AMIN30LI2 PO (09:36)
[2022-12-27] MEDS ORDERED: FAMO20TA8 PO (09:36)
[2022-12-27] MEDS ORDERED: GLUC1KIT IM (09:36)
[2022-12-27] MEDS ORDERED: POTASSIUM CHLORIDE 10 MEQ/50 ML PREMIXED IVPB FOR PERIPHERAL LINE IV ONE (10:30)
[2022-12-27] MEDS ORDERED: POTASSIUM CL. PREMIX PERIPHER. 50 ML IV SCH (11:00)
[2022-12-27] MEDS ORDERED: POTASSIUM CHLORIDE 20 MEQ TAB.PRT.SR PO ONE (11:00)
[2022-12-27 12:02] LABS: THYROID STIMULATING HORMONE 8.173 uIU/mL (0.358-3.74)
[2022-12-27] MEDS ORDERED: NA PHOS,M-B/NA PHOS,DI-BA 1 EA ENEMA RC PRN (13:30)
[2022-12-27] MEDS ORDERED: BISACODYL SUPP (10 MG) 10 MG/SUPP.RECT SUPP.RECT RC PRN (13:30)
[2022-12-27] MEDS ORDERED: CLONIDINE HCL 0.1 MG TABLET PO PRN (13:30)
[2022-12-27] MEDS ORDERED: ACETAMINOPHEN 325 MG TABLET PO PRN (13:30)
[2022-12-27] MEDS ORDERED: GLUCAGON,HUMAN RECOMBINANT 1 MG/VIAL VIAL IM PRN (13:30)
[2022-12-27] MEDS ORDERED: GUAIFENESIN 300 MG/15 ML UDC PO PRN (13:30)
[2022-12-27] MEDS: Sodium Chloride 154 MEQ in IV 10% DEXTROSE 1,000 ML IV SCH (16:08)
[2022-12-27] MEDS: POLYETHYLENE GLYCOL 3350 17 GM POWD.PACK PO SCH (17:52)
[2022-12-27] MEDS: NIFEdipine XL (30MG) 30 MG TAB PO SCH (17:53)
--- NOTE | 2022-12-27 18:33 | NUR ---
RN CLOSING NOTE- PATIENT AWAKE AOX1, NO ACUTE DISTRESS, IV ACCESS IS ON RFA G#20 WITH IVF OF NACL MEQ IN IV DEXTROSE 10% @45 ML/HR RUNNING AND INFUSING WELL. PATIENT IS WITH SCD ON BOTH LEGS. PLACED PATIENT ON PUREED RENAL DIET. HD TODAY 2000 ML OUT. KEPT PT SAFE - BED AT LOWEST AND LOCKED POSITION, SIDE RAILS X2, BED ALARM ON, MONITOR / ASSIST.
--- NOTE | 2022-12-27 19:30 | NUR ---
GEOLOGY PROFESSOR OPENING NOTES - RECEIVED PATIENT AWAKE IN BED. A/O X1, YARIEL SPEAKING. SPEAKS SOME CITIZEN OF [place]. BREATHING EVEN AND NON-LABORED ON ROOM AIR. NOT IN APPARENT DISTRESS. NO S/S OF PAIN OR DISCOMFORT AT THIS TIME. ON TELE MONITOR READING SINUS RHYTHM AT 75 BPM. HAS RIGHT FOREARM IV ACCESS #20G WITH NACL 154MEQ IN 10% DEXTROSE RUNNING AT 45 ML/HR. NO S/S OF INFILTRATION NOTED. HAS RIGHT CHEST WALL HD CATH. SAFETY PRECAUTIONS IN PLACE: BED LOCKED AND IN LOW POSITION, SIDE RAILS UP X3, CALL LIGHT WITHIN REACH. WILL CONTINUE PLAN OF CARE.
--- NOTE | 2022-12-27 20:30 | NUR ---
BP 195/96, ADMINISTERED PRN HYDRALAZINE 10MG IVP. WILL RECHECK BP IN AN HOUR.
[2022-12-27] MEDS: LABETALOL HCL (100MG) 100 MG TABLET PO SCH (21:34)
[2022-12-27] MEDS: FAMOTIDINE (20 MG) 20 MG TABLET PO SCH (21:34)
[2022-12-27] MEDS: ATORVASTATIN 40 MG TABLET PO SCH (21:34)
[2022-12-28] VITALS (9 sets, daily range): BP systolic 123–175; BP diastolic 54–81
[2022-12-28] MEDS: LABETALOL HCL (100MG) 100 MG TABLET PO SCH ×3 (04:54→21:20)
--- NOTE | 2022-12-28 05:00 | NUR ---
BP 152/73, GAVE PRN CLONIDINE 0.1MG PO.
[2022-12-28 06:04] LABS: BASOPHILS % (AUTO) 0.4 % (0.0-2.0); EOSINOPHILS % (AUTO) 5.1 % (0.0-6.0); HEMATOCRIT 37 % (33-45); HEMOGLOBIN 11.5 g/dL (11.5-14.8); LYMPHOCYTES # (AUTO) 1.2 K/uL (0.8-4.8); LYMPHOCYTES % (AUTO) 24.7 % (20.0-44.0); MEAN CORPUSCULAR HGB CONC 31 g/dl (31.0-36.0); MEAN CORPUSCULAR VOLUME 77 fL (82-100); MONOCYTES # (AUTO) 0.8 K/uL (0.1-1.30); MONOCYTES % (AUTO) 15.4 % (2.0-12.0); NEUTROPHILS # (AUTO) 2.7 K/uL (1.8-8.9); NEUTROPHILS % (AUTO) 54.4 % (43.0-81.0); PLATELET COUNT (AUTO) 236 K/uL (150-450); RED BLOOD CELL COUNT(AUTO) 4.83 MIL/uL (4.0-5.2)
[2022-12-28 06:31] LABS: CALCIUM, SERUM 10.5 mg/dL (8.5-10.1); CARBON DIOXIDE 24 mmol/L (21-32); CHLORIDE 107 mmol/L (98-107); CREATININE 3.5 mg/dL (0.6-1.3); GLUCOSE 193 mg/dL (74-106); PHOSPHORUS 2.8 mg/dL (2.5-4.9); POTASSIUM 3.5 mmol/L (3.5-5.1); SODIUM SERUM 141 mmol/L (136-145); UREA NITROGEN, BLOOD 16 mg/dL (7-18)
--- NOTE | 2022-12-28 07:00 | NUR ---
LACTATION COORDINATOR CLOSING NOTES - PATIENT RESTING IN BED, FREQUENT REORIENTATION NEEDED. NO CARDIAC OR RESPIRATORY DISTRESS NOTED. AFEBRILE. NO C/O PAIN AT THIS TIME. ON TELE MONITOR READING SINUS RHYTHM AT 67 BPM. RIGHT FOREARM IV ACCESS #20G INTACT, PATENT AND FLUSHING. RIGHT CHEST WALL HD CATH DRESSING C/D/I. ENCOURAGED P.O. INTAKE. PERINEAL CARE RENDERED. ALL DUE MEDS GIVEN AND NEEDS ATTENDED. SAFETY PRECAUTIONS MAINTAINED. WILL ENDORSE TO NEXT SHIFT FOR COLLIN.
--- NOTE | 2022-12-28 07:15 | NUR ---
ms rn received on bed, awake, confuse, not in any form of distress, respirations even and unlabored,no sob noted, lungs are diminished, abdomen soft,positive bowel sounds,denies pian at this time, normal sinus rhythm on monitor, patient will have dialysis today.
[2022-12-28] MEDS: PROSOURCE / PROSTAT (PYXIS) 30 ML UDC PO SCH (09:00)
[2022-12-28] MEDS ORDERED: Medication Not On Formulary EA (Cranberry Extract (Cranberry) 425 MG) PO SCH (09:00)
[2022-12-28] MEDS: POLYVINYL ALCOHOL 15 ML BOTTLE EACHEYE SCH (09:00)
--- NOTE | 2022-12-28 09:20 | NUR ---
ms rn held medicine at this time, patient is having dialysis at this time, tolerating well.
[2022-12-28] MEDS: ASPIRIN EC 81 MG TABLET.DR PO SCH (10:42)
[2022-12-28] MEDS: LEVOTHYROXINE SODIUM 75 MCG TABLET PO SCH (10:42)
[2022-12-28] MEDS: PANTOPRAZOLE 40 MG TABLET.DR PO SCH (10:42)
[2022-12-28] MEDS: DOCUSATE SODIUM 100 MG CAPSULE PO SCH (10:43)
[2022-12-28] MEDS: BUMETANIDE (1 MG) 1 MG TABLET PO SCH (10:43)
--- NOTE | 2022-12-28 11:00 | NUR ---
ms rn building done w/ 2liters out, tolerated well.
--- NOTE | 2022-12-28 17:50 | NUR ---
ms rn on bed,still confused, no distress noted,all needs attended.
[2022-12-28] MEDS ORDERED: INSULIN GLARGINE, 100 UNIT/ML CARTRIDGE SQ SCH (18:00)
[2022-12-28] MEDS: POLYETHYLENE GLYCOL 3350 17 GM POWD.PACK PO SCH (18:52)
[2022-12-28] MEDS: NIFEdipine XL (30MG) 30 MG TAB PO SCH (18:52)
--- NOTE | 2022-12-28 19:00 | NUR ---
RN OPENING NOTES PT IS AWAKE. A/O X 1, KYRGYZ SPEAKING. PT IS IN RA TOLERATING WELL, BREATHING EVEN AND UNLABORED @ THIS TIME. PT HAS IV PRESENT ON RIGHT FOREARM #20G, PATENT, INTACT AND FLUSHES WELL WITH NO S & SX OF INFILTRATION @SITE NOTED. PT HD CATH IN PLACE @ RIGHT CW. PT IS ON TELE MONITOR IN PLACE. SAFETY MEASURES IS IN PLACE. BED AT ITS LOWEST AND LOCKED POSITION. SIDE RAILS UP X 3. BEDSIDE TABLE AND CALL LIGHT IS EASY REACH. BED ALARM IS ON. WILL CONTINUE TO MONITOR PT ACCORDINGLY.
[2022-12-28] MEDS: FAMOTIDINE (20 MG) 20 MG TABLET PO SCH (21:17)
[2022-12-28] MEDS: ATORVASTATIN 40 MG TABLET PO SCH (21:21)
--- NOTE | 2022-12-28 21:44 | NUR ---
UNABLE TO ADMINISTERED FULL DOSAGE OF CRUSHED TRANDATE 400MG, LIPITOR 50 MG AND PEPCID 20MG MIXED WITH APPLE SAUCE TO PT D/T PT REFUSED TO OPEN HER MOUTH. PT SPIT THE MEDICATION.
[2022-12-29] VITALS: BP 137/76
[2022-12-29] MEDS: LABETALOL HCL (100MG) 100 MG TABLET PO SCH ×2 (04:54→14:02)
[2022-12-29 05:00] VITALS: BP 156/71
--- NOTE | 2022-12-29 06:37 | NUR ---
RN CLOSING NOTE PT IS AWAKE, RESTING COMFORTABLY IN BED. . A/O X 1, RESPONSIVE AND FOLLOWS VERBAL COMMAND. PT IS IN RA, NO SHORTNESS OF BREATH, NO RESPIRATORY DISTRESS NOTED @ THIS TIME, O2 SAT 99%. PT HAS IV PRESENT ON RIGHT FOREARM #20G, PATENT, INTACT AND FLUSHES WELL WITH NO S & SX OF INFILTRATION @SITE NOTED. PT HD CATH IN PLACE @ RIGHT CW. PT IS ON TELE MONITOR IN PLACE WITH CURRENT READING OF SINUS RHYTHM, HR 69 BPM. ADMINISTERED MEDICATIONS ACCORDINGLY PER MD'S ORDER. PT DIAPER CHANGED, KEPT CLEAN, DRY AND COMFORTABLE. SAFETY MEASURES IS IN PLACE. BED AT ITS LOWEST AND LOCKED POSITION. SIDE RAILS UP X 3. BEDSIDE TABLE AND CALL LIGHT IS EASY REACH. BED ALARM IS ON. WILL ENDORSE PT TO THE NEXT SHIFT FOR CONTINUITY OF CARE.
[2022-12-29 07:00] VITALS: BP 161/78
--- NOTE | 2022-12-29 07:30 | NUR ---
RN OPENING NOTES PT IS AWAKE. A/O X 1, SAMI SPEAKING. PT IS IN RA TOLERATING WELL, BREATHING EVEN AND UNLABORED @ THIS TIME. PT HAS IV PRESENT ON RIGHT FOREARM #20G, PATENT, INTACT AND FLUSHES WELL WITH NO S & SX OF INFILTRATION @SITE NOTED. PT HD CATH IN PLACE @ RIGHT CW. PT IS ON TELE MONITOR IN PLACE. SAFETY MEASURES IS IN PLACE. BED AT ITS LOWEST AND LOCKED POSITION. SIDE RAILS UP X 3. BEDSIDE TABLE AND CALL LIGHT IS EASY REACH. BED ALARM IS ON. WILL CONTINUE TO MONITOR PT ACCORDINGLY.
[2022-12-29 07:56] LABS: BASOPHILS % (AUTO) 0.8 % (0.0-2.0); EOSINOPHILS % (AUTO) 3.7 % (0.0-6.0); HEMATOCRIT 40 % (33-45); HEMOGLOBIN 12.1 g/dL (11.5-14.8); LYMPHOCYTES # (AUTO) 1.3 K/uL (0.8-4.8); LYMPHOCYTES % (AUTO) 24.4 % (20.0-44.0); MEAN CORPUSCULAR HGB CONC 31 g/dl (31.0-36.0); MEAN CORPUSCULAR VOLUME 76 fL (82-100); MONOCYTES # (AUTO) 0.6 K/uL (0.1-1.30); MONOCYTES % (AUTO) 11.3 % (2.0-12.0); NEUTROPHILS # (AUTO) 3.2 K/uL (1.8-8.9); NEUTROPHILS % (AUTO) 59.8 % (43.0-81.0); PLATELET COUNT (AUTO) 211 K/uL (150-450); RED BLOOD CELL COUNT(AUTO) 5.18 MIL/uL (4.0-5.2); WHITE BLOOD COUNT (AUTO) 5.3 K/uL (4.3-11.0)
[2022-12-29 08:31] LABS: CALCIUM, SERUM 9.3 mg/dL (8.5-10.1); CARBON DIOXIDE 24 mmol/L (21-32); CHLORIDE 100 mmol/L (98-107); CREATININE 3.4 mg/dL (0.6-1.3); GLUCOSE 103 mg/dL (74-106); MAGNESIUM 1.9 mg/dL (1.8-2.4); PHOSPHORUS 3.7 mg/dL (2.5-4.9); POTASSIUM 3.7 mmol/L (3.5-5.1); SODIUM SERUM 136 mmol/L (136-145); UREA NITROGEN, BLOOD 16 mg/dL (7-18)
[2022-12-29] MEDS: ASPIRIN EC 81 MG TABLET.DR PO SCH (08:59)
[2022-12-29] MEDS: DOCUSATE SODIUM 100 MG CAPSULE PO SCH (08:59)
[2022-12-29] MEDS: BUMETANIDE (1 MG) 1 MG TABLET PO SCH (08:59)
[2022-12-29] MEDS: POLYVINYL ALCOHOL 15 ML BOTTLE EACHEYE SCH (09:00)
[2022-12-29] MEDS ORDERED: NEPRO VAN 237 ML CAN PO PRN (09:00)
[2022-12-29] MEDS ORDERED: PROSOURCE / PROSTAT (PYXIS) 30 ML UDC GT SCH (09:00)
[2022-12-29] MEDS ORDERED: INSULIN GLARGINE, 100 UNIT/ML CARTRIDGE SQ SCH (09:00)
[2022-12-29] MEDS: PROSOURCE / PROSTAT (PYXIS) 30 ML UDC PO SCH (09:04)
[2022-12-29] MEDS: LEVOTHYROXINE SODIUM 75 MCG TABLET PO SCH (09:06)
[2022-12-29] MEDS: PANTOPRAZOLE 40 MG TABLET.DR PO SCH (09:06)
[2022-12-29 12:11] VITALS: BP 162/67
[2022-12-29 14:02] VITALS: BP 152/80
--- NOTE | 2022-12-29 15:00 | NUR ---
COMMUNITY RELATIONS MANAGERGLAZE SPRAYER NOTE: PATIENT AAOX1. NO S/S OF PAIN OR DISCOMFORT.ON ROOM AIR. NO SOB, NO DYSPNEA. PATIENT ON STABLE CONDITION . Addendum: 12/29/22 at 1541 by FLAVIO MCCAULEY RN DISCHARGE INSTRUCTION GIVEN. IV REMOVED WITH NO COMPLICATIONS NOTED AND INTACT TIP. ALL BELONGINGS ACCOUNTED FOR. PHOTOS OF SKIN ISSUES TAKEN AND PLACED IN CHART. ID BAND REMOVED. EXIT CARE FOLDER GIVEN TO [facility]. GAVE REPORT TO MICHAEL OTERO AT [facility]. PATIENT PICKED UP BY [facility] [phone]. PATIENT LEFT IN STABLE CONDITION.
== END 2022-12-29 15:08 | DRG 422 ==
LOC: ER 12:03 → TELE 14:58
PROVIDERS: ADMIT Student in an Organized Health Care Education/Training Program; ATTEND Student in an Organized Health Care Education/Training Program
PROC: 5A1D70Z Performance of Urinary Filtration, Intermittent, Less than 6 Hours Per Day (ICD-10-PCS; principal; 2022-12-27)
DX: E86.9 Volume depletion, unspecified (principal); G93.40 Encephalopathy, unspecified; I13.2 Hypertensive heart and chronic kidney disease with heart failure and with stage 5 chronic kidney disease, or end stage renal disease; E11.36 Type 2 diabetes mellitus with diabetic cataract; D63.8 Anemia in other chronic diseases classified elsewhere; E11.649 Type 2 diabetes mellitus with hypoglycemia without coma; N18.6 End stage renal disease; E11.22 Type 2 diabetes mellitus with diabetic chronic kidney disease; I50.32 Chronic diastolic (congestive) heart failure; E78.5 Hyperlipidemia, unspecified; I25.10 Atherosclerotic heart disease of native coronary artery without angina pectoris; Z86.73 Personal history of transient ischemic attack (TIA), and cerebral infarction without residual deficits; I25.2 Old myocardial infarction; Z88.0 Allergy status to penicillin; Z88.2 Allergy status to sulfonamides; Z88.1 Allergy status to other antibiotic agents; Z88.8 Allergy status to other drugs, medicaments and biological substances; Z79.4 Long term (current) use of insulin; Z99.2 Dependence on renal dialysis; Z79.82 Long term (current) use of aspirin; Z79.899 Other long term (current) drug therapy; E03.9 Hypothyroidism, unspecified; E87.6 Hypokalemia; M89.8X9 Other specified disorders of bone, unspecified site; E11.65 Type 2 diabetes mellitus with hyperglycemia; R77.8 Other specified abnormalities of plasma proteins; E83.52 Hypercalcemia
CPT/HCPCS: 36415; 70450-TC; 71045-TC; 80048-TC; 80076-TC; 82140-TC; 82962-TC; 83605-TC; 83735-TC; 84100-TC; 84439-TC; 84443-TC; 84484-TC; 85025-TC; 86706; 87040-TC; 87081-TC; 87340; 90935-TC; 92526; 92611-TC; 93307-TC; 97116-TC; 97530-TC; A4223; C9803; G0378; J0360; J1815; J3490; J7030

== ENCOUNTER 2023-12-20 11:28 | Inpatient (IN) | payer MEDICAID, OTHER ==
[~2023-12-20] VITALS: Ht 149.9 cm; Wt 45.4 kg
[~2023-12-20 11:28] MED LIST changes: +AMIN30LI2 PO; -AMIN887L PO; +FAMO20TA8 PO; +GLUC1KIT IM; -INSU100V7 SQ; -SEVE800T8 PO
[2023-12-20 15:26] LABS: BASOPHILS % (AUTO) 0.4 % (0.0-2.0); EOSINOPHILS # (AUTO) 0.3 K/uL (0.0-0.7); EOSINOPHILS % (AUTO) 4.8 % (0.0-6.0); HEMATOCRIT 37 % (33-45); HEMOGLOBIN 11.6 g/dL (11.5-14.8); LYMPHOCYTES % (AUTO) 15.8 % (20.0-44.0); MEAN CORPUSCULAR HEMOGLOBIN 23 PG (26.0-33.0); MEAN CORPUSCULAR HGB CONC 32 g/dl (31.0-36.0); MEAN CORPUSCULAR VOLUME 71 fL (82-100); MONOCYTES # (AUTO) 0.7 K/uL (0.1-1.30); MONOCYTES % (AUTO) 10.6 % (2.0-12.0); NEUTROPHILS # (AUTO) 4.5 K/uL (1.8-8.9); NEUTROPHILS % (AUTO) 68.4 % (43.0-81.0); PLATELET COUNT (AUTO) 250 K/uL (150-450); RED BLOOD CELL COUNT(AUTO) 5.16 MIL/uL (4.0-5.2); RED CELL DISTRIBUTION WIDTH 16.7 % (11.5-15.0); WHITE BLOOD COUNT (AUTO) 6.5 K/uL (4.3-11.0)
[2023-12-20 15:34] LABS: CALCIUM, SERUM 9.1 mg/dL (8.5-10.1); CARBON DIOXIDE 25 mmol/L (21-32); CHLORIDE 99 mmol/L (98-107); CREATININE 2.9 mg/dL (0.6-1.3); GLUCOSE 181 mg/dL (74-106); POTASSIUM 3.5 mmol/L (3.5-5.1); SODIUM SERUM 133 mmol/L (136-145); UREA NITROGEN, BLOOD 23 mg/dL (7-18)
[2023-12-20 15:44] LABS: ALANINE AMINOTRANSFERASE 16 U/L (12-78); ALBUMIN 3.3 g/dL (3.4-5.0); ALKALINE PHOSPHATASE 129 U/L (46-116); ASPARTATE AMINOTRANSFERASE 26 U/L (15-37); BILIRUBIN,TOTAL 0.6 mg/dL (0.2-1.0); TOTAL PROTEIN, SERUM 7.5 g/dL (6.4-8.2)
[2023-12-20] MEDS ORDERED: MAGN400O6 PO (18:04)
[2023-12-20] MEDS ORDERED: LEVO75TA7 PO (18:04)
[2023-12-20] MEDS ORDERED: ACET325T53 PO (18:04)
[2023-12-20] MEDS ORDERED: PANT40TA49 PO (18:04)
[2023-12-20] MEDS ORDERED: ACET-637 PO (18:04)
[2023-12-20] MEDS ORDERED: CHOL200059 PO (18:04)
[2023-12-20] MEDS ORDERED: INSU100I30 SQ (18:04)
[2023-12-20] MEDS ORDERED: hydrALAZINE HCL IV 20 MG VIAL ONE (18:42)
[2023-12-20] MEDS: hydrALAZINE HCL IV 20 MG VIAL IV ONE (18:50)
[2023-12-20] MEDS ORDERED: Z GUARD REMEDY 4 OZ OINT TP PRN (22:30)
[2023-12-20] MEDS ORDERED: MAGNESIUM HYDROXIDE 30 ML UDC PO PRN (22:30)
[2023-12-20] MEDS ORDERED: ONDANSETRON HCL/PF 4 MG/2 ML VIAL IVP PRN (22:30)
[2023-12-20] MEDS ORDERED: ZOLPIDEM TARTRATE 5 MG TABLET PO PRN (22:30)
[2023-12-20] MEDS ORDERED: CLONIDINE HCL 0.1 MG TABLET PO PRN (22:30)
[2023-12-20] MEDS ORDERED: MAG HYDROX/AL HYDROX/SIMETH 30 ML UDC PO PRN (22:30)
[2023-12-20] MEDS ORDERED: DEXTROSE 50%-WATER 50 ML DISP.SYRIN IV PRN (22:30)
[2023-12-20] MEDS ORDERED: MORPHINE SULFATE INJ 2 MG/ML DISP.SYRIN IV PRN (22:30)
[2023-12-20 23:00] VITALS: BP 155/62; TEMP 98; O2SAT 98
[2023-12-21] VITALS: BP 155/57; TEMP 98; O2SAT 98
[2023-12-21] MEDS: LABETALOL HCL (100MG) 100 MG TABLET PO SCH (05:00)
[2023-12-21] MEDS: LEVOTHYROXINE SODIUM 75 MCG TABLET PO SCH (07:30)
[2023-12-21 07:42] LABS: CALCIUM, SERUM 9.3 mg/dL (8.5-10.1); CARBON DIOXIDE 31 mmol/L (21-32); CHLORIDE 100 mmol/L (98-107); CREATININE 3.9 mg/dL (0.6-1.3); GLUCOSE 125 mg/dL (74-106); MAGNESIUM 2.1 mg/dL (1.8-2.4); PHOSPHORUS 3.7 mg/dL (2.5-4.9); POTASSIUM 3.7 mmol/L (3.5-5.1); SODIUM SERUM 136 mmol/L (136-145); UREA NITROGEN, BLOOD 31 mg/dL (7-18)
[2023-12-21 07:50] LABS: BASOPHILS % (AUTO) 0.6 % (0.0-2.0); EOSINOPHILS # (AUTO) 0.4 K/uL (0.0-0.7); EOSINOPHILS % (AUTO) 7.1 % (0.0-6.0); HEMATOCRIT 35 % (33-45); HEMOGLOBIN 11.2 g/dL (11.5-14.8); LYMPHOCYTES # (AUTO) 1.5 K/uL (0.8-4.8); LYMPHOCYTES % (AUTO) 28.7 % (20.0-44.0); MEAN CORPUSCULAR HEMOGLOBIN 23 PG (26.0-33.0); MEAN CORPUSCULAR HGB CONC 32 g/dl (31.0-36.0); MEAN CORPUSCULAR VOLUME 71 fL (82-100); MONOCYTES # (AUTO) 0.6 K/uL (0.1-1.30); MONOCYTES % (AUTO) 12.5 % (2.0-12.0); NEUTROPHILS # (AUTO) 2.7 K/uL (1.8-8.9); NEUTROPHILS % (AUTO) 51.1 % (43.0-81.0); PLATELET COUNT (AUTO) 234 K/uL (150-450); RED BLOOD CELL COUNT(AUTO) 4.92 MIL/uL (4.0-5.2); WHITE BLOOD COUNT (AUTO) 5.2 K/uL (4.3-11.0)
[2023-12-21] MEDS: BLOOD SUGAR DIAGNOSTIC 1 EACH STRIP IN SCH (08:05)
[2023-12-21] MEDS: INSULIN REGULAR, HUMAN 100 UNIT/ML 3 ML VIAL SQ PRN (08:05)
[2023-12-21] MEDS: PROSOURCE / PROSTAT (PYXIS) 30 ML UDC PO SCH (09:00)
[2023-12-21] MEDS: DOCUSATE SODIUM 100 MG CAPSULE PO SCH (09:00)
[2023-12-21] MEDS: PANTOPRAZOLE 40 MG TABLET.DR PO SCH (09:00)
[2023-12-21] MEDS: CHOLECALCIFEROL 1,000 UNIT TABLET (VIT D3) PO SCH (09:00)
[2023-12-21] MEDS ORDERED: Medication Not On Formulary EA (Cranberry Extract (Cranberry) 425 MG) PO SCH (09:00)
[2023-12-21] MEDS: ASPIRIN EC 81 MG TABLET.DR PO SCH (09:00)
[2023-12-21] MEDS: POLYVINYL ALCOHOL 15 ML BOTTLE EACHEYE SCH (10:25)
[2023-12-21] MEDS ORDERED: IODIXANOL 320MG/ML 0 ML IV ONE (12:01)
[2023-12-21] MEDS ORDERED: LIDOCAINE HCL/MPF 1% 30 ML VIAL IJ ONE (12:01)
[2023-12-21] MEDS ORDERED: HEPARIN SODIUM, PORCINE 1,000 UNIT/ML VIAL ONE (12:22)
[2023-12-21] MEDS ORDERED: CEFAZOLIN 2 GM in IV D5W 100 ML IV ONE (12:30)
[2023-12-21] MEDS: CLINDAMYCIN 600 MG in IV D5W 50 ML IV ONE (13:07)
[2023-12-21] MEDS: POLYETHYLENE GLYCOL 3350 17 GM POWD.PACK PO SCH (18:14)
[2023-12-21] MEDS: NIFEdipine XL (30MG) 30 MG TAB PO SCH (18:15)
[2023-12-21 20:00] VITALS: BP 137/67; TEMP 98; O2SAT 98
[2023-12-21] MEDS: ATORVASTATIN 40 MG TABLET PO SCH (22:38)
[2023-12-21] MEDS: FAMOTIDINE (20 MG) 20 MG TABLET PO SCH (22:39)
[2023-12-21] MEDS: ACETAMINOPHEN 325 MG TABLET PO PRN (22:39)
[2023-12-22 04:00] VITALS: BP 109/97; TEMP 98.6; O2SAT 99
[2023-12-22 08:00] VITALS: BP 127/68; TEMP 97.8; O2SAT 99
[2023-12-22 08:05] LABS: BASOPHILS % (AUTO) 0.4 % (0.0-2.0); EOSINOPHILS # (AUTO) 0.3 K/uL (0.0-0.7); EOSINOPHILS % (AUTO) 3.5 % (0.0-6.0); HEMATOCRIT 35 % (33-45); HEMOGLOBIN 10.9 g/dL (11.5-14.8); LYMPHOCYTES # (AUTO) 1.6 K/uL (0.8-4.8); LYMPHOCYTES % (AUTO) 20.3 % (20.0-44.0); MEAN CORPUSCULAR HEMOGLOBIN 23 PG (26.0-33.0); MEAN CORPUSCULAR HGB CONC 32 g/dl (31.0-36.0); MEAN CORPUSCULAR VOLUME 73 fL (82-100); MONOCYTES # (AUTO) 0.9 K/uL (0.1-1.30); MONOCYTES % (AUTO) 11.6 % (2.0-12.0); NEUTROPHILS % (AUTO) 64.2 % (43.0-81.0); PLATELET COUNT (AUTO) 244 K/uL (150-450); RED BLOOD CELL COUNT(AUTO) 4.79 MIL/uL (4.0-5.2); RED CELL DISTRIBUTION WIDTH 17.6 % (11.5-15.0); WHITE BLOOD COUNT (AUTO) 7.8 K/uL (4.3-11.0)
[2023-12-22 08:38] LABS: CALCIUM, SERUM 9.5 mg/dL (8.5-10.1); CARBON DIOXIDE 20 mmol/L (21-32); CHLORIDE 98 mmol/L (98-107); CREATININE 5.7 mg/dL (0.6-1.3); GLUCOSE 97 mg/dL (74-106); MAGNESIUM 2.3 mg/dL (1.8-2.4); PHOSPHORUS 4.9 mg/dL (2.5-4.9); POTASSIUM 4.3 mmol/L (3.5-5.1); SODIUM SERUM 134 mmol/L (136-145); UREA NITROGEN, BLOOD 50 mg/dL (7-18)
[2023-12-22 16:00] VITALS: BP 111/68; TEMP 97.8; O2SAT 99
== END 2023-12-22 17:29 | DRG 466 ==
LOC: ER 11:30 → TELE1 22:17 → MEDSG1 12-21 12:31
PROVIDERS: ADMIT Nurse Practitioner Acute Care; ATTEND Student in an Organized Health Care Education/Training Program
PROC: 0J2SXYZ Change Other Device in Head and Neck Subcutaneous Tissue and Fascia, External Approach (ICD-10-PCS; principal; 2023-12-21)
PROC: 5A1D70Z Performance of Urinary Filtration, Intermittent, Less than 6 Hours Per Day (ICD-10-PCS; 2023-12-22)
DX: T82.41XA Breakdown (mechanical) of vascular dialysis catheter, initial encounter (principal); N18.6 End stage renal disease; G93.41 Metabolic encephalopathy; I13.2 Hypertensive heart and chronic kidney disease with heart failure and with stage 5 chronic kidney disease, or end stage renal disease; E44.0 Moderate protein-calorie malnutrition; D63.1 Anemia in chronic kidney disease; E88.09 Other disorders of plasma-protein metabolism, not elsewhere classified; Z99.2 Dependence on renal dialysis; Z86.73 Personal history of transient ischemic attack (TIA), and cerebral infarction without residual deficits; R13.10 Dysphagia, unspecified; I50.9 Heart failure, unspecified; E11.22 Type 2 diabetes mellitus with diabetic chronic kidney disease; E03.9 Hypothyroidism, unspecified; I25.2 Old myocardial infarction; Z88.1 Allergy status to other antibiotic agents; Z88.0 Allergy status to penicillin; Z88.2 Allergy status to sulfonamides; Z88.8 Allergy status to other drugs, medicaments and biological substances; Z79.4 Long term (current) use of insulin; Z79.82 Long term (current) use of aspirin; Z79.890 Hormone replacement therapy; Z79.899 Other long term (current) drug therapy; E78.5 Hyperlipidemia, unspecified; F03.90 Unspecified dementia, unspecified severity, without behavioral disturbance, psychotic disturbance, mood disturbance, and anxiety; Y84.1 Kidney dialysis as the cause of abnormal reaction of the patient, or of later complication, without mention of misadventure at the time of the procedure; Y92.89 Other specified places as the place of occurrence of the external cause
CPT/HCPCS: 36415; 71045-TC; 80048-TC; 80053-TC; 82962-TC; 83735-TC; 84100-TC; 85025-TC; 87081-TC; 90935-TC; A6403; G0378; J0360; J0690; J1644; J1815; J3490; J7030; J7060

== ENCOUNTER 2024-02-16 06:11 | Inpatient (IN) | payer OTHER ==
[~2024-02-16] VITALS: Ht 160 cm; Wt 40.4 kg
[2024-02-16] VITALS (29 sets, daily range): BP systolic 94–135; BP diastolic 47–90; TEMP 95.9–98.6; O2SAT 99–100
[~2024-02-16 06:11] MED LIST changes: +ACET-637 GT; +ACET-868 GT; -ACET-868 PO; +ACET325T53 PO; +ASPI-1420 GT; -ASPI-1420 PO; +ATOR40TA GT; -ATOR40TA PO; +BUME1TAB8 GT; -BUME1TAB8 PO; +CHOL200059 PO; +FAMO20TA8 GT; -FAMO20TA8 PO; -GUAI100S11 PO; +INSU100I30 SQ; +LABE200T5 GT; -LABE200T5 PO; -LEVO50TA8 PO; +LEVO75TA7 GT; +MAGN400O6 PO; +PANT40TA49 PO
[2024-02-16] MEDS: IV NS 0.9% 1,000 ML BAG IV ONE (06:57)
[2024-02-16] MEDS ORDERED: CEFEPIME 1 GM VIAL ONE (06:59)
[2024-02-16] MEDS ORDERED: MIDAZOLAM HCL 100 MG in IV NS 0.9% 80 ML IV PRN (07:00)
[2024-02-16] MEDS ORDERED: FENTANYL CITRAT IV 2,500 MCG in IV NS 0.9% 200 ML IV PRN (07:00)
[2024-02-16] MEDS ORDERED: VANCOMYCIN 1 GM /D5W 250 ML PB IV ONE (07:00)
[2024-02-16] MEDS: MIDAZOLAM HCL 2 MG/2ML VIAL IV ONE (07:00)
[2024-02-16] MEDS: FENTANYL PF 100MCG/2ML AMPUL IV ONE (07:00)
[2024-02-16 07:12] LABS: BASOPHILS % (AUTO) 0.5 % (0.0-2.0); EOSINOPHILS # (AUTO) 0.3 K/uL (0.0-0.7); HEMATOCRIT 30 % (33-45); HEMOGLOBIN 9.7 g/dL (11.5-14.8); LYMPHOCYTES # (AUTO) 1.3 K/uL (0.8-4.8); LYMPHOCYTES % (AUTO) 22.1 % (20.0-44.0); MEAN CORPUSCULAR HEMOGLOBIN 24 PG (26.0-33.0); MEAN CORPUSCULAR HGB CONC 32 g/dl (31.0-36.0); MEAN CORPUSCULAR VOLUME 76 fL (82-100); MONOCYTES # (AUTO) 0.5 K/uL (0.1-1.30); MONOCYTES % (AUTO) 9.3 % (2.0-12.0); NEUTROPHILS # (AUTO) 3.7 K/uL (1.8-8.9); NEUTROPHILS % (AUTO) 63.1 % (43.0-81.0); PLATELET COUNT (AUTO) 207 K/uL (150-450); RED BLOOD CELL COUNT(AUTO) 3.98 MIL/uL (4.0-5.2); RED CELL DISTRIBUTION WIDTH 19.3 % (11.5-15.0); WHITE BLOOD COUNT (AUTO) 5.9 K/uL (4.3-11.0)
[2024-02-16] MEDS: CEFEPIME 1 GM in IV D5W 50 ML IV ONE (07:15)
[2024-02-16 07:18] LABS: APPEARANCE,URINE SLIGHTLY CLOUDY (CLEAR); BILIRUBIN,URINE NEGATIVE (NEGATIVE); BLOOD, URINE TRACE-INTA Ery/uL (NEGATIVE); COLOR,URINE DARK YELLOW (YELLOW); KETONES,URINE NEGATIVE (NEGATIVE); LEUKOCYTE ESTERASE ,URINE 2+ (NEGATIVE); NITRITE, URINE NEGATIVE (NEGATIVE); PH,URINE 5.5 (5.0-8.0); PROTEIN,URINE 3+ mg/dl (NEGATIVE); UGLUCOSE NEGATIVE (NEGATIVE); UROBILINOGEN,URINE 0.2 EU/dL (0.2)
[2024-02-16 07:21] LABS: ADD URINE CULTURE YES; BACTERIA,URINE Moderate /HPF (None Seen); SQUAMOUS EPITHELIAL CELL,UR Rare /HPF (None Seen)
[2024-02-16 07:25] LABS: INR 0.94 (0.91-1.10); PARTIAL THROMBOPLASTIN TIME 31.6 SEC (24.3-34.3)
[2024-02-16] MEDS: VANCOMYCIN 1 GM in IV D5W 250 ML IV ONE (07:26)
[2024-02-16 07:46] LABS: ABG BASE EXCESS 0.4 mmol/L; ABG OXYGEN SATURATION 99.6 % (92.0-98.5); ABG PCO2 23.1 mmHg (35.0-45.0); ABG PH 7.579 (7.350-7.450); ABG PO2 225.7 mmHg (75.0-100.0); ABG TOTAL HEMOGLOBIN 10.7 G/dL (12.0-16.0); COHb 0.6 % (0.5-1.5); MetHb 0.3 % (0.0-1.5); O2Hb 98.7 % (94.0-97.0); PEEP,BG 5 cm H2O; VT, ABG 450 mL
[2024-02-16 07:53] LABS: CALCIUM, SERUM 10.7 mg/dL (8.5-10.1); CARBON DIOXIDE 23 mmol/L (21-32); CHLORIDE 98 mmol/L (98-107); GLUCOSE 175 mg/dL (74-106); POTASSIUM 4.1 mmol/L (3.5-5.1); SODIUM SERUM 138 mmol/L (136-145); UREA NITROGEN, BLOOD 70 mg/dL (7-18)
[2024-02-16] MEDS: ETOMIDATE 2 MG/ML VIAL IV ONE (07:53)
[2024-02-16] MEDS: ROCURONIUM BROMIDE 100 MG/10 ML VIAL IV ONE (07:54)
[2024-02-16 07:59] LABS: ALANINE AMINOTRANSFERASE 20 U/L (12-78); ALBUMIN 2.7 g/dL (3.4-5.0); ALKALINE PHOSPHATASE 139 U/L (46-116); ASPARTATE AMINOTRANSFERASE 27 U/L (15-37); BILIRUBIN,DIRECT 0.1 mg/dL (0.0-0.2); BILIRUBIN,TOTAL 0.6 mg/dL (0.2-1.0); TOTAL PROTEIN, SERUM 6.9 g/dL (6.4-8.2)
[2024-02-16 08:02] LABS: LACTIC ACID 1.7 mmol/L (0.4-2.0)
[2024-02-16] MEDS ORDERED: ONDANSETRON HCL/PF 4 MG/2 ML VIAL IVP PRN (08:30)
[2024-02-16] MEDS ORDERED: Z GUARD REMEDY 4 OZ OINT TP PRN (08:30)
[2024-02-16] MEDS ORDERED: MAGNESIUM HYDROXIDE 30 ML UDC PO PRN ×2 (08:30→16:30)
[2024-02-16] MEDS ORDERED: MAG HYDROX/AL HYDROX/SIMETH 30 ML UDC PO PRN (08:30)
[2024-02-16] MEDS ORDERED: ZOLPIDEM TARTRATE 5 MG TABLET PO PRN (08:30)
[2024-02-16] MEDS ORDERED: ONDA4TAB11 PO (08:36)
[2024-02-16] MEDS: IV D5/0.45 NACL 1,000 ML IV PRN (10:54)
[2024-02-16] MEDS: PANTOPRAZOLE 40 MG VIAL IV SCH (10:57)
[2024-02-16] MEDS: HEPARIN SODIUM, PORCINE 5000 UNITS/1 ML VIAL SQ SCH (10:58)
[2024-02-16] MEDS ORDERED: DEXTROSE 50%-WATER 50 ML DISP.SYRIN IV PRN (11:00)
[2024-02-16 11:02] LABS: THYROID STIMULATING HORMONE 41.185 uIU/mL (0.358-3.74)
[2024-02-16] MEDS: BLOOD SUGAR DIAGNOSTIC 1 EACH STRIP IN SCH (12:23)
[2024-02-16] MEDS ORDERED: EPINEPHRINE (1:10,000) SYRINGE 1 MG/10 ML DISP.SYRIN IVP ONE (12:26)
[2024-02-16] MEDS ORDERED: ETOMIDATE 2 MG/ML VIAL IV ONE (12:28)
[2024-02-16] MEDS: INSULIN REGULAR, HUMAN 100 UNIT/ML 3 ML VIAL SQ PRN (12:40)
[2024-02-16] MEDS: PROPOFOL 100 ML IV PRN (12:41)
[2024-02-16] MEDS ORDERED: SODIUM BICARBONATE SYR 50 MEQ/50 ML DISP.SYRIN IV ONE (12:54)
[2024-02-16] MEDS ORDERED: NOREPINEPHRINE 32 MG in IV NS 0.9% 218 ML IV PRN (13:00)
[2024-02-16] MEDS ORDERED: BISACODYL SUPP (10 MG) 10 MG/SUPP.RECT SUPP.RECT RC PRN (16:30)
[2024-02-16] MEDS ORDERED: ACETAMINOPHEN 325 MG TABLET PO PRN (16:30)
[2024-02-16] MEDS ORDERED: ONDANSETRON 4 MG TAB.RAPDIS PO PRN (16:30)
[2024-02-16] MEDS ORDERED: NA PHOS,M-B/NA PHOS,DI-BA 1 EA ENEMA RC PRN (16:30)
[2024-02-16] MEDS: ALBUMIN 25% 25 GM in PREMIX 1 EA IV PRN (16:50)
[2024-02-16] MEDS: NIFEdipine XL (30MG) 30 MG TAB PO SCH (17:20)
[2024-02-16] MEDS: CHOLECALCIFEROL 1,000 UNIT TABLET (VIT D3) PO SCH (17:29)
[2024-02-16] MEDS: POLYETHYLENE GLYCOL 3350 17 GM POWD.PACK PO SCH (17:29)
[2024-02-16] MEDS ORDERED: GLUCAGON,HUMAN RECOMBINANT 1 MG/VIAL VIAL IM PRN (17:30)
[2024-02-16] MEDS: VANCOMYCIN 500 MG in IV D5W 100 ML IV PRN (19:05)
[2024-02-16] MEDS: LABETALOL HCL (100MG) 100 MG TABLET PO SCH (21:00)
[2024-02-16] MEDS: ATORVASTATIN 40 MG TABLET PO SCH (21:44)
[2024-02-17] VITALS (43 sets, daily range): BP systolic 83–191; BP diastolic 43–71; TEMP 98.5–99.1; O2SAT 98–100
[2024-02-17] MEDS ORDERED: CEFEPIME 1 GM VIAL ONE (04:53)
[2024-02-17] MEDS: CEFEPIME 1 GM in IV D5W 50 ML IV SCH (05:07)
[2024-02-17 05:59] LABS: ALANINE AMINOTRANSFERASE 14 U/L (12-78); ALBUMIN 2.8 g/dL (3.4-5.0); ALKALINE PHOSPHATASE 101 U/L (46-116); ASPARTATE AMINOTRANSFERASE 38 U/L (15-37); BILIRUBIN,TOTAL 0.6 mg/dL (0.2-1.0); CALCIUM, SERUM 8.5 mg/dL (8.5-10.1); CARBON DIOXIDE 22 mmol/L (21-32); CHLORIDE 95 mmol/L (98-107); CREATININE 3.8 mg/dL (0.6-1.3); GLUCOSE 172 mg/dL (74-106); MAGNESIUM 1.8 mg/dL (1.8-2.4); PHOSPHORUS 2.7 mg/dL (2.5-4.9); POTASSIUM 3.7 mmol/L (3.5-5.1); SODIUM SERUM 130 mmol/L (136-145); UREA NITROGEN, BLOOD 31 mg/dL (7-18)
[2024-02-17 06:10] LABS: THYROID STIMULATING HORMONE 20.447 uIU/mL (0.358-3.74)
[2024-02-17 08:10] LABS: BASOPHILS % (AUTO) 0.6 % (0.0-2.0); EOSINOPHILS # (AUTO) 0.2 K/uL (0.0-0.7); EOSINOPHILS % (AUTO) 2.5 % (0.0-6.0); HEMATOCRIT 30 % (33-45); HEMOGLOBIN 9.8 g/dL (11.5-14.8); LYMPHOCYTES # (AUTO) 1.5 K/uL (0.8-4.8); LYMPHOCYTES % (AUTO) 25.2 % (20.0-44.0); MEAN CORPUSCULAR HEMOGLOBIN 24 PG (26.0-33.0); MEAN CORPUSCULAR HGB CONC 32 g/dl (31.0-36.0); MEAN CORPUSCULAR VOLUME 75 fL (82-100); MONOCYTES # (AUTO) 0.9 K/uL (0.1-1.30); MONOCYTES % (AUTO) 15.2 % (2.0-12.0); NEUTROPHILS # (AUTO) 3.4 K/uL (1.8-8.9); NEUTROPHILS % (AUTO) 56.5 % (43.0-81.0); PLATELET COUNT (AUTO) 220 K/uL (150-450); RED BLOOD CELL COUNT(AUTO) 4.05 MIL/uL (4.0-5.2); RED CELL DISTRIBUTION WIDTH 18.5 % (11.5-15.0); WHITE BLOOD COUNT (AUTO) 6.1 K/uL (4.3-11.0)
[2024-02-17] MEDS: POLYVINYL ALCOHOL 15 ML BOTTLE EACHEYE SCH (08:41)
[2024-02-17] MEDS: DOCUSATE SODIUM 100 MG CAPSULE PO SCH (08:42)
[2024-02-17] MEDS: FAMOTIDINE (20 MG) 20 MG TABLET PO SCH (08:42)
[2024-02-17] MEDS: LEVOTHYROXINE SODIUM 75 MCG TABLET PO SCH (08:42)
[2024-02-17] MEDS: ASPIRIN EC 81 MG TABLET.DR PO SCH (08:42)
[2024-02-17] MEDS: BUMETANIDE (1 MG) 1 MG TABLET PO SCH (08:43)
[2024-02-17] MEDS: PROSOURCE / PROSTAT (PYXIS) 30 ML UDC PO SCH (08:46)
[2024-02-17] MEDS ORDERED: PANTOPRAZOLE 40 MG TABLET.DR PO SCH (09:00)
[2024-02-17] MEDS ORDERED: Medication Not On Formulary EA (Cranberry Extract (Cranberry) 425 MG) PO SCH (09:00)
[2024-02-17] MEDS: ACETAMINOPHEN 325 MG TABLET PO PRN (17:04)
[2024-02-18] VITALS (33 sets, daily range): BP systolic 110–166; BP diastolic 50–133; TEMP 97.7–98.5; O2SAT 92–100
[2024-02-18 05:00] LABS: BASOPHILS % (AUTO) 0.7 % (0.0-2.0); EOSINOPHILS # (AUTO) 0.3 K/uL (0.0-0.7); EOSINOPHILS % (AUTO) 4.4 % (0.0-6.0); HEMATOCRIT 29 % (33-45); HEMOGLOBIN 9.5 g/dL (11.5-14.8); LYMPHOCYTES # (AUTO) 1.1 K/uL (0.8-4.8); LYMPHOCYTES % (AUTO) 16.7 % (20.0-44.0); MEAN CORPUSCULAR HEMOGLOBIN 24 PG (26.0-33.0); MEAN CORPUSCULAR HGB CONC 33 g/dl (31.0-36.0); MEAN CORPUSCULAR VOLUME 75 fL (82-100); MONOCYTES # (AUTO) 0.9 K/uL (0.1-1.30); MONOCYTES % (AUTO) 13.5 % (2.0-12.0); NEUTROPHILS # (AUTO) 4.1 K/uL (1.8-8.9); NEUTROPHILS % (AUTO) 64.7 % (43.0-81.0); PLATELET COUNT (AUTO) 223 K/uL (150-450); RED BLOOD CELL COUNT(AUTO) 3.89 MIL/uL (4.0-5.2); RED CELL DISTRIBUTION WIDTH 18.5 % (11.5-15.0); WHITE BLOOD COUNT (AUTO) 6.4 K/uL (4.3-11.0)
[2024-02-18 05:41] LABS: CALCIUM, SERUM 8.1 mg/dL (8.5-10.1); CARBON DIOXIDE 19 mmol/L (21-32); CHLORIDE 90 mmol/L (98-107); CREATININE 4.5 mg/dL (0.6-1.3); GLUCOSE 169 mg/dL (74-106); MAGNESIUM 1.8 mg/dL (1.8-2.4); PHOSPHORUS 4.2 mg/dL (2.5-4.9); POTASSIUM 3.7 mmol/L (3.5-5.1); SODIUM SERUM 124 mmol/L (136-145); UREA NITROGEN, BLOOD 40 mg/dL (7-18)
[2024-02-18] MEDS ORDERED: NOREPINEPHRINE 8 MG in IV D5W 250ML IV PRN (08:30)
[2024-02-18] MEDS ORDERED: GLUCERNA 1.2 1,000 ML BOTTLE NG PRN (12:30)
[2024-02-19] VITALS (28 sets, daily range): BP systolic 124–191; BP diastolic 38–79; TEMP 97.5–99.2; O2SAT 99–100
[2024-02-19 03:08] LABS: HEPATITIS B SURFACE AB Non Reactive (.)
[2024-02-19 04:55] LABS: BASOPHILS % (AUTO) 0.3 % (0.0-2.0); EOSINOPHILS # (AUTO) 0.3 K/uL (0.0-0.7); EOSINOPHILS % (AUTO) 3.6 % (0.0-6.0); HEMATOCRIT 28 % (33-45); LYMPHOCYTES # (AUTO) 0.9 K/uL (0.8-4.8); LYMPHOCYTES % (AUTO) 9.8 % (20.0-44.0); MEAN CORPUSCULAR HEMOGLOBIN 24 PG (26.0-33.0); MEAN CORPUSCULAR HGB CONC 32 g/dl (31.0-36.0); MEAN CORPUSCULAR VOLUME 75 fL (82-100); MONOCYTES # (AUTO) 0.8 K/uL (0.1-1.30); MONOCYTES % (AUTO) 8.7 % (2.0-12.0); NEUTROPHILS # (AUTO) 7.4 K/uL (1.8-8.9); NEUTROPHILS % (AUTO) 77.6 % (43.0-81.0); PLATELET COUNT (AUTO) 206 K/uL (150-450); RED BLOOD CELL COUNT(AUTO) 3.73 MIL/uL (4.0-5.2); RED CELL DISTRIBUTION WIDTH 18.4 % (11.5-15.0); WHITE BLOOD COUNT (AUTO) 9.6 K/uL (4.3-11.0)
[2024-02-19 04:58] LABS: CALCIUM, SERUM 7.5 mg/dL (8.5-10.1); CARBON DIOXIDE 19 mmol/L (21-32); CHLORIDE 88 mmol/L (98-107); CREATININE 5.1 mg/dL (0.6-1.3); GLUCOSE 184 mg/dL (74-106); MAGNESIUM 1.8 mg/dL (1.8-2.4); PHOSPHORUS 5.3 mg/dL (2.5-4.9); POTASSIUM 4.2 mmol/L (3.5-5.1); UREA NITROGEN, BLOOD 45 mg/dL (7-18); VANCOMYCIN,TROUGH 18 ug/ml (10-20)
[2024-02-19 05:37] LABS: SODIUM SERUM 120 mmol/L (136-145)
[2024-02-19] MEDS: CLONIDINE HCL 0.1 MG TABLET PO PRN (06:24)
[2024-02-19 08:20] LABS: EOSINOPHILS % (MANUAL) 3 % (0-4); LYMPHOCYTES % (MANUAL) 15 % (16-48); MONOCYTES % (MANUAL) 5 % (0-11.0); NEUTROPHILS % (MANUAL) 77 (42-76)
[2024-02-19 08:21] LABS: PLATELET ESTIMATE ADEQUATE
[2024-02-19 08:24] LABS: ANISOCYTOSIS 1+; TARGET CELLS 1+
[2024-02-19 09:52] LABS: ABG BASE EXCESS -6.4 mmol/L; ABG OXYGEN SATURATION 94.6 % (92.0-98.5); ABG PH 7.378 (7.350-7.450); ABG PO2 79.5 mmHg (75.0-100.0); ABG TOTAL HEMOGLOBIN 10.4 G/dL (12.0-16.0); COHb 0.4 % (0.5-1.5); MetHb 0.2 % (0.0-1.5); SITE, ABG Right Radial
[2024-02-19] MEDS: NEPRO 1,000 ML BOTTLE GT PRN (17:05)
[2024-02-20] VITALS (18 sets, daily range): BP systolic 110–160; BP diastolic 47–82; TEMP 96.4–99.2; O2SAT 90–100
[2024-02-20 04:58] LABS: CALCIUM, SERUM 7.8 mg/dL (8.5-10.1); CARBON DIOXIDE 25 mmol/L (21-32); CHLORIDE 92 mmol/L (98-107); CREATININE 3.8 mg/dL (0.6-1.3); GLUCOSE 192 mg/dL (74-106); POTASSIUM 3.4 mmol/L (3.5-5.1); SODIUM SERUM 128 mmol/L (136-145); UREA NITROGEN, BLOOD 31 mg/dL (7-18)
[2024-02-20] MEDS: PANTOPRAZOLE 40 MG/PACK PACK GT SCH (08:11)
[2024-02-20] MEDS: POTASSIUM CHLORIDE 10 MEQ/50 ML PREMIXED IVPB FOR PERIPHERAL LINE IV SCH (09:50)
[2024-02-20] MEDS: NEPRO 1,000 ML BOTTLE GT PRN (17:46)
[2024-02-21] VITALS: BP 127/47; TEMP 97.6; O2SAT 100
[2024-02-21 04:00] VITALS: BP 149/51; TEMP 97.6; O2SAT 91
[2024-02-21 07:24] LABS: CALCIUM, SERUM 8.3 mg/dL (8.5-10.1); CARBON DIOXIDE 22 mmol/L (21-32); CHLORIDE 90 mmol/L (98-107); CREATININE 4.6 mg/dL (0.6-1.3); GLUCOSE 145 mg/dL (74-106); POTASSIUM 4.6 mmol/L (3.5-5.1); SODIUM SERUM 126 mmol/L (136-145); UREA NITROGEN, BLOOD 50 mg/dL (7-18)
[2024-02-21 08:00] VITALS: BP 177/63; TEMP 97.9; O2SAT 95
[2024-02-21 12:00] VITALS: BP 197/69; TEMP 98.1; O2SAT 94
[2024-02-21 16:00] VITALS: BP 155/70; TEMP 97.5; O2SAT 95
[2024-02-21 20:00] VITALS: BP 161/63; TEMP 98; O2SAT 95
[2024-02-22] VITALS: BP 179/61; TEMP 98.1; O2SAT 95
[2024-02-22] MEDS: hydrALAZINE HCL 25 MG TABLET PO PRN (02:01)
[2024-02-22 04:00] VITALS: BP 196/77; TEMP 98.1; O2SAT 92
[2024-02-22 07:01] LABS: BASOPHILS # (AUTO) 0.1 K/uL (0.0-0.2); BASOPHILS % (AUTO) 0.9 % (0.0-2.0); EOSINOPHILS # (AUTO) 0.5 K/uL (0.0-0.7); EOSINOPHILS % (AUTO) 5.5 % (0.0-6.0); HEMATOCRIT 29 % (33-45); HEMOGLOBIN 9.2 g/dL (11.5-14.8); LYMPHOCYTES # (AUTO) 0.8 K/uL (0.8-4.8); LYMPHOCYTES % (AUTO) 8.7 % (20.0-44.0); MEAN CORPUSCULAR HEMOGLOBIN 24 PG (26.0-33.0); MEAN CORPUSCULAR HGB CONC 32 g/dl (31.0-36.0); MEAN CORPUSCULAR VOLUME 75 fL (82-100); MONOCYTES # (AUTO) 0.9 K/uL (0.1-1.30); MONOCYTES % (AUTO) 9.4 % (2.0-12.0); NEUTROPHILS # (AUTO) 7.2 K/uL (1.8-8.9); NEUTROPHILS % (AUTO) 75.5 % (43.0-81.0); PLATELET COUNT (AUTO) 362 K/uL (150-450); RED BLOOD CELL COUNT(AUTO) 3.84 MIL/uL (4.0-5.2); WHITE BLOOD COUNT (AUTO) 9.5 K/uL (4.3-11.0)
[2024-02-22 07:19] LABS: CALCIUM, SERUM 7.9 mg/dL (8.5-10.1); CARBON DIOXIDE 23 mmol/L (21-32); CHLORIDE 96 mmol/L (98-107); CREATININE 3.9 mg/dL (0.6-1.3); GLUCOSE 182 mg/dL (74-106); MAGNESIUM 2.2 mg/dL (1.8-2.4); PHOSPHORUS 4.6 mg/dL (2.5-4.9); POTASSIUM 4.4 mmol/L (3.5-5.1); SODIUM SERUM 132 mmol/L (136-145); UREA NITROGEN, BLOOD 38 mg/dL (7-18)
[2024-02-22 08:00] VITALS: BP 173/61; TEMP 98.2; O2SAT 94
[2024-02-22 12:00] VITALS: BP 177/62; TEMP 98.6; O2SAT 92
[2024-02-22 16:00] VITALS: BP 167/65; TEMP 98.2; O2SAT 94
[2024-02-22 20:00] VITALS: BP 117/65; TEMP 97.6; O2SAT 92
[2024-02-23] VITALS: BP 155/56; TEMP 97.8; O2SAT 96
[2024-02-23 04:31] VITALS: BP 174/63; TEMP 97.7; O2SAT 96
[2024-02-23 06:54] LABS: BASOPHILS % (AUTO) 0.4 % (0.0-2.0); EOSINOPHILS # (AUTO) 0.6 K/uL (0.0-0.7); EOSINOPHILS % (AUTO) 5.8 % (0.0-6.0); HEMATOCRIT 28 % (33-45); HEMOGLOBIN 8.9 g/dL (11.5-14.8); LYMPHOCYTES # (AUTO) 1.1 K/uL (0.8-4.8); LYMPHOCYTES % (AUTO) 11.2 % (20.0-44.0); MEAN CORPUSCULAR HEMOGLOBIN 24 PG (26.0-33.0); MEAN CORPUSCULAR HGB CONC 32 g/dl (31.0-36.0); MEAN CORPUSCULAR VOLUME 74 fL (82-100); MONOCYTES # (AUTO) 1.3 K/uL (0.1-1.30); MONOCYTES % (AUTO) 12.5 % (2.0-12.0); NEUTROPHILS # (AUTO) 7.2 K/uL (1.8-8.9); NEUTROPHILS % (AUTO) 70.1 % (43.0-81.0); PLATELET COUNT (AUTO) 338 K/uL (150-450); RED BLOOD CELL COUNT(AUTO) 3.72 MIL/uL (4.0-5.2); RED CELL DISTRIBUTION WIDTH 17.7 % (11.5-15.0); WHITE BLOOD COUNT (AUTO) 10.3 K/uL (4.3-11.0)
[2024-02-23 07:04] LABS: CHLORIDE 95 mmol/L (98-107); CREATININE 4.9 mg/dL (0.6-1.3); GLUCOSE 157 mg/dL (74-106); MAGNESIUM 2.3 mg/dL (1.8-2.4); PHOSPHORUS 4.8 mg/dL (2.5-4.9); POTASSIUM 4.5 mmol/L (3.5-5.1); SODIUM SERUM 131 mmol/L (136-145); UREA NITROGEN, BLOOD 58 mg/dL (7-18)
[2024-02-23 07:08] LABS: CARBON DIOXIDE 24 mmol/L (21-32)
[2024-02-23 08:00] VITALS: BP 174/68; TEMP 97.3; O2SAT 96
[2024-02-23] MEDS: HEPARIN SODIUM, PORCINE 5000 UNITS/1 ML VIAL SQ SCH (10:22)
[2024-02-23 12:00] VITALS: BP 185/64; TEMP 97.5; O2SAT 94
[2024-02-23 16:00] VITALS: BP 140/58; TEMP 97.9; O2SAT 95
[2024-02-23 20:00] VITALS: BP 115/41; TEMP 98; O2SAT 100
[2024-02-24] VITALS: BP 141/49; TEMP 98.2; O2SAT 95
[2024-02-24 04:00] VITALS: BP 130/48; TEMP 98; O2SAT 97
[2024-02-24 06:56] LABS: BASOPHILS % (AUTO) 0.4 % (0.0-2.0); EOSINOPHILS # (AUTO) 0.5 K/uL (0.0-0.7); EOSINOPHILS % (AUTO) 5.6 % (0.0-6.0); HEMATOCRIT 28 % (33-45); LYMPHOCYTES % (AUTO) 11.9 % (20.0-44.0); MEAN CORPUSCULAR HEMOGLOBIN 24 PG (26.0-33.0); MEAN CORPUSCULAR HGB CONC 32 g/dl (31.0-36.0); MEAN CORPUSCULAR VOLUME 75 fL (82-100); MONOCYTES # (AUTO) 1.4 K/uL (0.1-1.30); MONOCYTES % (AUTO) 16.5 % (2.0-12.0); NEUTROPHILS # (AUTO) 5.4 K/uL (1.8-8.9); NEUTROPHILS % (AUTO) 65.6 % (43.0-81.0); PLATELET COUNT (AUTO) 339 K/uL (150-450); RED BLOOD CELL COUNT(AUTO) 3.79 MIL/uL (4.0-5.2); RED CELL DISTRIBUTION WIDTH 17.9 % (11.5-15.0); WHITE BLOOD COUNT (AUTO) 8.3 K/uL (4.3-11.0)
[2024-02-24 07:07] LABS: CALCIUM, SERUM 8.5 mg/dL (8.5-10.1); CARBON DIOXIDE 30 mmol/L (21-32); CHLORIDE 94 mmol/L (98-107); CREATININE 3.7 mg/dL (0.6-1.3); GLUCOSE 160 mg/dL (74-106); MAGNESIUM 2.3 mg/dL (1.8-2.4); PHOSPHORUS 3.2 mg/dL (2.5-4.9); POTASSIUM 3.7 mmol/L (3.5-5.1); SODIUM SERUM 133 mmol/L (136-145); UREA NITROGEN, BLOOD 37 mg/dL (7-18)
[2024-02-24 08:00] VITALS: BP 156/72; TEMP 98.8; O2SAT 99
[2024-02-24 10:34] LABS: ANISOCYTOSIS 2+; EOSINOPHILS % (MANUAL) 6 % (0-4); HYPOCHROMASIA 1+; LYMPHOCYTES % (MANUAL) 13 % (16-48); MONOCYTES % (MANUAL) 15 % (0-11.0); NEUTROPHILS % (MANUAL) 66 (42-76); PLATELET ESTIMATE ADEQUATE
[2024-02-24 10:35] LABS: TARGET CELLS 1+
[2024-02-24 12:00] VITALS: BP 183/63; TEMP 97.7; O2SAT 100
[2024-02-24 16:00] VITALS: BP_SYST 172; BP_SYST 202; BP_DIAS 60; BP_DIAS 73; TEMP 96.7; O2SAT 100
[2024-02-24 20:00] VITALS: BP 124/52; TEMP 98.2; O2SAT 100
[2024-02-25] VITALS: BP 173/66; TEMP 98.6; O2SAT 100
[2024-02-25 04:00] VITALS: BP 166/43; TEMP 98.6; O2SAT 100
[2024-02-25 07:12] LABS: BASOPHILS % (AUTO) 0.5 % (0.0-2.0); EOSINOPHILS # (AUTO) 0.5 K/uL (0.0-0.7); EOSINOPHILS % (AUTO) 5.4 % (0.0-6.0); HEMATOCRIT 29 % (33-45); HEMOGLOBIN 9.2 g/dL (11.5-14.8); LYMPHOCYTES # (AUTO) 0.9 K/uL (0.8-4.8); LYMPHOCYTES % (AUTO) 9.3 % (20.0-44.0); MEAN CORPUSCULAR HEMOGLOBIN 24 PG (26.0-33.0); MEAN CORPUSCULAR HGB CONC 32 g/dl (31.0-36.0); MEAN CORPUSCULAR VOLUME 75 fL (82-100); MONOCYTES # (AUTO) 1.3 K/uL (0.1-1.30); MONOCYTES % (AUTO) 12.9 % (2.0-12.0); NEUTROPHILS # (AUTO) 7.2 K/uL (1.8-8.9); NEUTROPHILS % (AUTO) 71.9 % (43.0-81.0); PLATELET COUNT (AUTO) 342 K/uL (150-450); RED BLOOD CELL COUNT(AUTO) 3.87 MIL/uL (4.0-5.2); RED CELL DISTRIBUTION WIDTH 17.6 % (11.5-15.0)
[2024-02-25 07:45] LABS: CALCIUM, SERUM 9.5 mg/dL (8.5-10.1); CARBON DIOXIDE 26 mmol/L (21-32); CHLORIDE 93 mmol/L (98-107); CREATININE 4.7 mg/dL (0.6-1.3); GLUCOSE 185 mg/dL (74-106); MAGNESIUM 2.4 mg/dL (1.8-2.4); PHOSPHORUS 3.5 mg/dL (2.5-4.9); SODIUM SERUM 131 mmol/L (136-145); UREA NITROGEN, BLOOD 57 mg/dL (7-18)
[2024-02-25 08:00] VITALS: BP 183/70; TEMP 98.2; O2SAT 100
[2024-02-25] MEDS ORDERED: POTASSIUM CHLORIDE 20 MEQ TAB.PRT.SR PO SCH (10:30)
[2024-02-25 12:00] VITALS: BP 159/66; TEMP 98.4; O2SAT 98
[2024-02-25 16:00] VITALS: BP 185/70; TEMP 98.8; O2SAT 98
[2024-02-25 20:00] VITALS: BP 118/52; TEMP 97.9; O2SAT 100
[2024-02-26 01:34] VITALS: BP 189/66; TEMP 98.2; O2SAT 100
[2024-02-26 04:50] VITALS: BP 144/53; TEMP 98.4; O2SAT 100
[2024-02-26 07:09] LABS: BASOPHILS % (AUTO) 0.5 % (0.0-2.0); EOSINOPHILS # (AUTO) 0.4 K/uL (0.0-0.7); EOSINOPHILS % (AUTO) 5.7 % (0.0-6.0); HEMATOCRIT 27 % (33-45); HEMOGLOBIN 8.7 g/dL (11.5-14.8); LYMPHOCYTES # (AUTO) 0.9 K/uL (0.8-4.8); LYMPHOCYTES % (AUTO) 13.2 % (20.0-44.0); MEAN CORPUSCULAR HEMOGLOBIN 24 PG (26.0-33.0); MEAN CORPUSCULAR HGB CONC 32 g/dl (31.0-36.0); MEAN CORPUSCULAR VOLUME 74 fL (82-100); MONOCYTES % (AUTO) 14.5 % (2.0-12.0); NEUTROPHILS # (AUTO) 4.5 K/uL (1.8-8.9); NEUTROPHILS % (AUTO) 66.1 % (43.0-81.0); PLATELET COUNT (AUTO) 263 K/uL (150-450); RED BLOOD CELL COUNT(AUTO) 3.66 MIL/uL (4.0-5.2); RED CELL DISTRIBUTION WIDTH 17.1 % (11.5-15.0); WHITE BLOOD COUNT (AUTO) 6.8 K/uL (4.3-11.0)
[2024-02-26 07:31] LABS: CALCIUM, SERUM 8.7 mg/dL (8.5-10.1); CARBON DIOXIDE 29 mmol/L (21-32); CHLORIDE 93 mmol/L (98-107); CREATININE 3.6 mg/dL (0.6-1.3); GLUCOSE 135 mg/dL (74-106); MAGNESIUM 2.3 mg/dL (1.8-2.4); PHOSPHORUS 3.4 mg/dL (2.5-4.9); POTASSIUM 3.7 mmol/L (3.5-5.1); SODIUM SERUM 131 mmol/L (136-145); UREA NITROGEN, BLOOD 38 mg/dL (7-18)
[2024-02-26 08:00] VITALS: BP 165/60; TEMP 96.7; O2SAT 100
[2024-02-26 16:00] VITALS: BP 198/67; TEMP 98.1; O2SAT 93
[2024-02-27 05:41] VITALS: BP 141/62; TEMP 98.4; O2SAT 97
[2024-02-27 06:55] LABS: BASOPHILS # (AUTO) 0.1 K/uL (0.0-0.2); BASOPHILS % (AUTO) 0.3 % (0.0-2.0); EOSINOPHILS # (AUTO) 0.1 K/uL (0.0-0.7); EOSINOPHILS % (AUTO) 0.5 % (0.0-6.0); HEMATOCRIT 25 % (33-45); HEMOGLOBIN 7.9 g/dL (11.5-14.8); LYMPHOCYTES # (AUTO) 0.8 K/uL (0.8-4.8); LYMPHOCYTES % (AUTO) 4.7 % (20.0-44.0); MEAN CORPUSCULAR HEMOGLOBIN 23 PG (26.0-33.0); MEAN CORPUSCULAR HGB CONC 31 g/dl (31.0-36.0); MEAN CORPUSCULAR VOLUME 74 fL (82-100); MONOCYTES # (AUTO) 0.5 K/uL (0.1-1.30); MONOCYTES % (AUTO) 3.2 % (2.0-12.0); NEUTROPHILS # (AUTO) 15.7 K/uL (1.8-8.9); NEUTROPHILS % (AUTO) 91.3 % (43.0-81.0); PLATELET COUNT (AUTO) 263 K/uL (150-450); RED BLOOD CELL COUNT(AUTO) 3.42 MIL/uL (4.0-5.2); RED CELL DISTRIBUTION WIDTH 17.3 % (11.5-15.0); WHITE BLOOD COUNT (AUTO) 17.2 K/uL (4.3-11.0)
[2024-02-27 07:27] LABS: CALCIUM, SERUM 8.9 mg/dL (8.5-10.1); CARBON DIOXIDE 27 mmol/L (21-32); CHLORIDE 89 mmol/L (98-107); GLUCOSE 128 mg/dL (74-106); PHOSPHORUS 4.6 mg/dL (2.5-4.9); POTASSIUM 4.4 mmol/L (3.5-5.1); SODIUM SERUM 128 mmol/L (136-145); UREA NITROGEN, BLOOD 65 mg/dL (7-18)
[2024-02-27 07:40] LABS: MAGNESIUM 2.4 mg/dL (1.8-2.4)
[2024-02-27 12:00] VITALS: BP 117/54; TEMP 98.5; O2SAT 97
[2024-02-27 17:50] LABS: BASOPHILS % (AUTO) 0.1 % (0.0-2.0); EOSINOPHILS % (AUTO) 0.5 % (0.0-6.0); HEMATOCRIT 25 % (33-45); HEMOGLOBIN 8.1 g/dL (11.5-14.8); LYMPHOCYTES # (AUTO) 1.1 K/uL (0.8-4.8); LYMPHOCYTES % (AUTO) 10.7 % (20.0-44.0); MEAN CORPUSCULAR HEMOGLOBIN 24 PG (26.0-33.0); MEAN CORPUSCULAR HGB CONC 32 g/dl (31.0-36.0); MEAN CORPUSCULAR VOLUME 74 fL (82-100); MONOCYTES # (AUTO) 0.6 K/uL (0.1-1.30); MONOCYTES % (AUTO) 6.3 % (2.0-12.0); NEUTROPHILS # (AUTO) 8.2 K/uL (1.8-8.9); NEUTROPHILS % (AUTO) 82.4 % (43.0-81.0); PLATELET COUNT (AUTO) 243 K/uL (150-450); RED BLOOD CELL COUNT(AUTO) 3.42 MIL/uL (4.0-5.2); RED CELL DISTRIBUTION WIDTH 17.3 % (11.5-15.0)
[2024-02-27] MEDS: IV D5/ 0.9% NACL 1,000 ML IV PRN (18:02)
[2024-02-27 20:00] VITALS: BP 172/60; TEMP 97.9; O2SAT 99
[2024-02-27] MEDS: SILVER NITRATE APPLICATOR 1 EA BOX TP ONE (21:19)
[2024-02-28] MEDS: NEPRO 1,000 ML BOTTLE GT PRN (00:52)
[2024-02-28 03:46] VITALS: O2SAT 98
[2024-02-28 04:00] VITALS: BP 167/69; TEMP 97.9; O2SAT 97
[2024-02-28 07:11] LABS: CALCIUM, SERUM 8.7 mg/dL (8.5-10.1); CARBON DIOXIDE 27 mmol/L (21-32); CHLORIDE 91 mmol/L (98-107); CREATININE 3.7 mg/dL (0.6-1.3); GLUCOSE 150 mg/dL (74-106); MAGNESIUM 2.3 mg/dL (1.8-2.4); PHOSPHORUS 4.2 mg/dL (2.5-4.9); POTASSIUM 3.4 mmol/L (3.5-5.1); SODIUM SERUM 128 mmol/L (136-145); UREA NITROGEN, BLOOD 38 mg/dL (7-18)
[2024-02-28 07:13] LABS: BASOPHILS % (AUTO) 0.1 % (0.0-2.0); EOSINOPHILS # (AUTO) 0.1 K/uL (0.0-0.7); EOSINOPHILS % (AUTO) 0.9 % (0.0-6.0); HEMATOCRIT 22 % (33-45); HEMOGLOBIN 7.1 g/dL (11.5-14.8); LYMPHOCYTES # (AUTO) 0.9 K/uL (0.8-4.8); LYMPHOCYTES % (AUTO) 8.7 % (20.0-44.0); MEAN CORPUSCULAR HEMOGLOBIN 24 PG (26.0-33.0); MEAN CORPUSCULAR HGB CONC 32 g/dl (31.0-36.0); MEAN CORPUSCULAR VOLUME 74 fL (82-100); MONOCYTES # (AUTO) 0.7 K/uL (0.1-1.30); MONOCYTES % (AUTO) 7.3 % (2.0-12.0); NEUTROPHILS # (AUTO) 8.2 K/uL (1.8-8.9); PLATELET COUNT (AUTO) 237 K/uL (150-450); RED BLOOD CELL COUNT(AUTO) 3.01 MIL/uL (4.0-5.2); RED CELL DISTRIBUTION WIDTH 16.7 % (11.5-15.0); WHITE BLOOD COUNT (AUTO) 9.9 K/uL (4.3-11.0)
[2024-02-28 11:43] LABS: HEMOGLOBIN 7.1 g/dL (11.5-14.8)
[2024-02-28 15:02] VITALS: BP 167/65; TEMP 97.6; O2SAT 97
[2024-02-28 17:02] VITALS: BP 170/65
== END 2024-02-28 17:15 | DRG 137 ==
LOC: ER 06:16 → ICU 09:12 → TELE1 02-20 15:35 → MEDSG1 02-25 11:34
PROVIDERS: ADMIT Student in an Organized Health Care Education/Training Program; ATTEND Student in an Organized Health Care Education/Training Program
PROC: 5A1945Z Respiratory Ventilation, 24-96 Consecutive Hours (ICD-10-PCS; principal; 2024-02-16)
PROC: 0BH17EZ Insertion of Endotracheal Airway into Trachea, Via Natural or Artificial Opening (ICD-10-PCS; 2024-02-16)
PROC: 5A1D70Z Performance of Urinary Filtration, Intermittent, Less than 6 Hours Per Day (ICD-10-PCS; 2024-02-16)
PROC: 05HB33Z Insertion of Infusion Device into Right Basilic Vein, Percutaneous Approach (ICD-10-PCS; 2024-02-16)
PROC: 5A2204Z Restoration of Cardiac Rhythm, Single (ICD-10-PCS; 2024-02-16)
PROC: 05HC33Z Insertion of Infusion Device into Left Basilic Vein, Percutaneous Approach (ICD-10-PCS; 2024-02-25)
PROC: 0DH63UZ Insertion of Feeding Device into Stomach, Percutaneous Approach (ICD-10-PCS; 2024-02-26)
DX: U07.1 COVID-19 (principal); J96.01 Acute respiratory failure with hypoxia; G93.41 Metabolic encephalopathy; E44.0 Moderate protein-calorie malnutrition; I13.2 Hypertensive heart and chronic kidney disease with heart failure and with stage 5 chronic kidney disease, or end stage renal disease; D63.1 Anemia in chronic kidney disease; E88.09 Other disorders of plasma-protein metabolism, not elsewhere classified; E87.1 Hypo-osmolality and hyponatremia; E83.51 Hypocalcemia; T82.41XA Breakdown (mechanical) of vascular dialysis catheter, initial encounter; N18.6 End stage renal disease; N39.0 Urinary tract infection, site not specified; K29.70 Gastritis, unspecified, without bleeding; M89.8X9 Other specified disorders of bone, unspecified site; Z99.2 Dependence on renal dialysis; Z86.73 Personal history of transient ischemic attack (TIA), and cerebral infarction without residual deficits; R13.10 Dysphagia, unspecified; H26.9 Unspecified cataract; Z88.0 Allergy status to penicillin; Z88.2 Allergy status to sulfonamides; Z88.8 Allergy status to other drugs, medicaments and biological substances; Z79.4 Long term (current) use of insulin; Z79.890 Hormone replacement therapy; Z79.82 Long term (current) use of aspirin; Z79.899 Other long term (current) drug therapy; F03.90 Unspecified dementia, unspecified severity, without behavioral disturbance, psychotic disturbance, mood disturbance, and anxiety; E78.5 Hyperlipidemia, unspecified; Z78.1 Physical restraint status; Z78.9 Other specified health status; I25.2 Old myocardial infarction; D50.9 Iron deficiency anemia, unspecified; E03.9 Hypothyroidism, unspecified; E11.22 Type 2 diabetes mellitus with diabetic chronic kidney disease; R94.6 Abnormal results of thyroid function studies; Y84.1 Kidney dialysis as the cause of abnormal reaction of the patient, or of later complication, without mention of misadventure at the time of the procedure; Y92.129 Unspecified place in nursing home as the place of occurrence of the external cause; R00.1 Bradycardia, unspecified; I50.32 Chronic diastolic (congestive) heart failure
CPT/HCPCS: 31720; 36410; 36415; 36600; 43246; 70450-TC; 71045-TC; 80048-TC; 80053-TC; 80061-TC; 80076-TC; 80202-TC; 81001; 82803-TC; 82962-TC; 83605-TC; 83735-TC; 84100-TC; 84439-TC; 84443-TC; 84478-TC; 84484-TC; 85025-TC; 85027-TC; 85730-TC; 86706; 86850-TC; 87040-TC; 87081-TC; 87086-TC; 87340; 90935-TC; 92526; 92611-TC; 93307-TC; 94003-TC; 94760-TC; 94799-TC; 99082-TC; A4216; A4223; A6253; C9113; G0378; J0171; J0461; J0690; J0692; J1644; J1815; J2704; J3370; J3480; J3490; J7030; J7050; J7060; P9047; Q0162

== ENCOUNTER 2024-03-02 23:33 | Inpatient (IN) | payer OTHER ==
[~2024-03-02] VITALS: Ht 152.4 cm; Wt 45.8 kg
[~2024-03-02 23:33] MED LIST changes: +ONDA4TAB11 PO
[2024-03-03] VITALS (9 sets, daily range): BP systolic 110–172; BP diastolic 52–85; TEMP 97.7–99.1; O2SAT 98–100
[2024-03-03 01:23] LABS: BASOPHILS % (AUTO) 0.4 % (0.0-2.0); EOSINOPHILS # (AUTO) 0.3 K/uL (0.0-0.7); EOSINOPHILS % (AUTO) 3.1 % (0.0-6.0); LYMPHOCYTES # (AUTO) 0.8 K/uL (0.8-4.8); LYMPHOCYTES % (AUTO) 7.9 % (20.0-44.0); MEAN CORPUSCULAR HEMOGLOBIN 24 PG (26.0-33.0); MEAN CORPUSCULAR HGB CONC 32 g/dl (31.0-36.0); MEAN CORPUSCULAR VOLUME 75 fL (82-100); MONOCYTES # (AUTO) 0.7 K/uL (0.1-1.30); NEUTROPHILS # (AUTO) 8.5 K/uL (1.8-8.9); NEUTROPHILS % (AUTO) 81.6 % (43.0-81.0); PLATELET COUNT (AUTO) 210 K/uL (150-450); RED BLOOD CELL COUNT(AUTO) 2.15 MIL/uL (4.0-5.2); WHITE BLOOD COUNT (AUTO) 10.4 K/uL (4.3-11.0)
[2024-03-03 01:24] LABS: HEMATOCRIT 16 % (33-45); HEMOGLOBIN 5.2 g/dL (11.5-14.8)
[2024-03-03 01:33] LABS: CALCIUM, SERUM 8.5 mg/dL (8.5-10.1); CARBON DIOXIDE 26 mmol/L (21-32); CHLORIDE 95 mmol/L (98-107); CREATININE 4.7 mg/dL (0.6-1.3); GLUCOSE 209 mg/dL (74-106); POTASSIUM 4.1 mmol/L (3.5-5.1); SODIUM SERUM 130 mmol/L (136-145); UREA NITROGEN, BLOOD 64 mg/dL (7-18)
[2024-03-03 01:37] LABS: INR 1.03 (0.91-1.10); PARTIAL THROMBOPLASTIN TIME 35.4 SEC (24.3-34.3); PROTHROMBIN TIME 10.9 SECS (9.2-11.1)
[2024-03-03 01:38] LABS: ALANINE AMINOTRANSFERASE < 6 U/L (12-78); ALBUMIN 1.9 g/dL (3.4-5.0); ALKALINE PHOSPHATASE 198 U/L (46-116); ASPARTATE AMINOTRANSFERASE 31 U/L (15-37); BILIRUBIN,DIRECT 0.1 mg/dL (0.0-0.2); BILIRUBIN,TOTAL 0.6 mg/dL (0.2-1.0); LIPASE 83 U/L (16-77)
[2024-03-03 01:47] LABS: MAGNESIUM 2.2 mg/dL (1.8-2.4); PHOSPHORUS 3.3 mg/dL (2.5-4.9)
[2024-03-03 02:42] LABS: ANISOCYTOSIS 1+; BASOPHILS % (MANUAL) 0 % (0.0-2.0); EOSINOPHILS % (MANUAL) 3 % (0-4); HYPOCHROMASIA 1+; LYMPHOCYTES % (MANUAL) 9 % (16-48); MONOCYTES % (MANUAL) 5 % (0-11.0); NEUTROPHILS % (MANUAL) 83 (42-76); OVALOCYTES 1+; PLATELET ESTIMATE ADEQUATE
[2024-03-03] MEDS ORDERED: GELATIN SPONGE,ABSORBABLE 1 EA SPONGE TP ONE (03:20)
[2024-03-03] MEDS ORDERED: ACETAMINOPHEN 325 MG TABLET PO PRN (03:30)
[2024-03-03] MEDS: PANTOPRAZOLE 40 MG VIAL IV SCH (03:30)
[2024-03-03] MEDS ORDERED: ONDANSETRON HCL/PF 4 MG/2 ML VIAL IVP PRN (03:30)
[2024-03-03 05:06] LABS: BASOPHILS # (AUTO) 0.1 K/uL (0.0-0.2); BASOPHILS % (AUTO) 0.2 % (0.0-2.0); EOSINOPHILS % (AUTO) 0.1 % (0.0-6.0); HEMATOCRIT 38 % (33-45); HEMOGLOBIN 12.5 g/dL (11.5-14.8); LYMPHOCYTES # (AUTO) 0.4 K/uL (0.8-4.8); LYMPHOCYTES % (AUTO) 1.9 % (20.0-44.0); MEAN CORPUSCULAR HEMOGLOBIN 29 PG (26.0-33.0); MEAN CORPUSCULAR HGB CONC 33 g/dl (31.0-36.0); MEAN CORPUSCULAR VOLUME 87 fL (82-100); MONOCYTES # (AUTO) 1.5 K/uL (0.1-1.30); MONOCYTES % (AUTO) 6.9 % (2.0-12.0); NEUTROPHILS # (AUTO) 20.4 K/uL (1.8-8.9); NEUTROPHILS % (AUTO) 90.9 % (43.0-81.0); PLATELET COUNT (AUTO) 222 K/uL (150-450); RED BLOOD CELL COUNT(AUTO) 4.34 MIL/uL (4.0-5.2); WHITE BLOOD COUNT (AUTO) 22.5 K/uL (4.3-11.0)
[2024-03-03 05:13] LABS: CALCIUM, SERUM 8.6 mg/dL (8.5-10.1); POTASSIUM 4.5 mmol/L (3.5-5.1)
[2024-03-03] MEDS ORDERED: CHOL100062 GT (07:39)
[2024-03-03] MEDS ORDERED: NUTRITIONAL SUPPLEMENT GT (07:39)
[2024-03-03] MEDS ORDERED: DOCU100T2 GT (07:39)
[2024-03-03] MEDS ORDERED: AMLO10TA4 GT (07:39)
[2024-03-03] MEDS ORDERED: DEXTROSE 50%-WATER 50 ML DISP.SYRIN IV PRN (08:30)
[2024-03-03 08:42] LABS: BASOPHILS # (AUTO) 0.1 K/uL (0.0-0.2); BASOPHILS % (AUTO) 0.5 % (0.0-2.0); EOSINOPHILS # (AUTO) 0.1 K/uL (0.0-0.7); EOSINOPHILS % (AUTO) 0.6 % (0.0-6.0); HEMATOCRIT 21 % (33-45); LYMPHOCYTES # (AUTO) 1.1 K/uL (0.8-4.8); LYMPHOCYTES % (AUTO) 8.9 % (20.0-44.0); MEAN CORPUSCULAR HEMOGLOBIN 25 PG (26.0-33.0); MEAN CORPUSCULAR HGB CONC 33 g/dl (31.0-36.0); MEAN CORPUSCULAR VOLUME 78 fL (82-100); MONOCYTES # (AUTO) 0.8 K/uL (0.1-1.30); MONOCYTES % (AUTO) 6.3 % (2.0-12.0); NEUTROPHILS # (AUTO) 10.8 K/uL (1.8-8.9); NEUTROPHILS % (AUTO) 83.7 % (43.0-81.0); PLATELET COUNT (AUTO) 200 K/uL (150-450); RED BLOOD CELL COUNT(AUTO) 2.69 MIL/uL (4.0-5.2); RED CELL DISTRIBUTION WIDTH 16.8 % (11.5-15.0); WHITE BLOOD COUNT (AUTO) 12.8 K/uL (4.3-11.0)
[2024-03-03 08:51] LABS: HEMOGLOBIN 6.8 g/dL (11.5-14.8)
[2024-03-03] MEDS: PANTOPRAZOLE 40 MG/PACK PACK GT SCH (09:00)
[2024-03-03] MEDS: AMLODIPINE BESYLATE 10 MG TABLET GT SCH (09:00)
[2024-03-03] MEDS: FAMOTIDINE (20 MG) 20 MG TABLET GT SCH (09:00)
[2024-03-03] MEDS ORDERED: PANTOPRAZOLE 40 MG TABLET.DR PO SCH (09:00)
[2024-03-03] MEDS: BUMETANIDE (1 MG) 1 MG TABLET GT SCH (09:00)
[2024-03-03] MEDS: CEFEPIME 1 GM in IV D5W 50 ML IV SCH (09:53)
[2024-03-03] MEDS: DOCUSATE SODIUM LIQ 100 MG/10 ML UDC GT SCH (10:00)
[2024-03-03] MEDS: POLYVINYL ALCOHOL 15 ML BOTTLE EACHEYE SCH (10:47)
[2024-03-03] MEDS: ASPIRIN 81 MG TAB.CHEW GT SCH (10:50)
[2024-03-03] MEDS ORDERED: ACETAMINOPHEN 650 MG/20.3 ML UDC GT PRN (11:00)
[2024-03-03] MEDS: METOCLOPRAMIDE HCL 10 MG/2 ML VIAL IV SCH (11:30)
[2024-03-03] MEDS ORDERED: DIATR MEGLU/DIATRIZOATE SODIUM 30 ML BOTTLE (GASTROGRAPHIN) ONE (11:32)
[2024-03-03] MEDS: BLOOD SUGAR DIAGNOSTIC 1 EACH STRIP IN SCH (11:38)
[2024-03-03] MEDS: INSULIN REGULAR, HUMAN 100 UNIT/ML 3 ML VIAL SQ PRN (11:40)
[2024-03-03] MEDS: DIATR MEGLU/DIATRIZOATE SODIUM 30 ML BOTTLE (GASTROGRAPHIN) PO ONE (12:07)
[2024-03-03] MEDS: LABETALOL HCL (100MG) 100 MG TABLET GT SCH (13:00)
[2024-03-03] MEDS: NEPRO 1,000 ML BOTTLE GT PRN (15:50)
[2024-03-03 16:19] LABS: BASOPHILS % (AUTO) 0.4 % (0.0-2.0); EOSINOPHILS # (AUTO) 0.1 K/uL (0.0-0.7); EOSINOPHILS % (AUTO) 1.4 % (0.0-6.0); HEMATOCRIT 26 % (33-45); HEMOGLOBIN 8.9 g/dL (11.5-14.8); LYMPHOCYTES # (AUTO) 0.9 K/uL (0.8-4.8); LYMPHOCYTES % (AUTO) 8.6 % (20.0-44.0); MEAN CORPUSCULAR HEMOGLOBIN 27 PG (26.0-33.0); MEAN CORPUSCULAR HGB CONC 34 g/dl (31.0-36.0); MEAN CORPUSCULAR VOLUME 79 fL (82-100); MONOCYTES % (AUTO) 9.3 % (2.0-12.0); NEUTROPHILS # (AUTO) 8.4 K/uL (1.8-8.9); NEUTROPHILS % (AUTO) 80.3 % (43.0-81.0); PLATELET COUNT (AUTO) 206 K/uL (150-450); RED CELL DISTRIBUTION WIDTH 17.5 % (11.5-15.0); WHITE BLOOD COUNT (AUTO) 10.5 K/uL (4.3-11.0)
[2024-03-03] MEDS: hydrALAZINE HCL IV 20 MG VIAL IV PRN (17:10)
[2024-03-03 18:22] LABS: BASOPHILS % (AUTO) 0.4 % (0.0-2.0); EOSINOPHILS # (AUTO) 0.1 K/uL (0.0-0.7); EOSINOPHILS % (AUTO) 1.3 % (0.0-6.0); HEMATOCRIT 26 % (33-45); HEMOGLOBIN 8.9 g/dL (11.5-14.8); LYMPHOCYTES # (AUTO) 1.1 K/uL (0.8-4.8); LYMPHOCYTES % (AUTO) 9.7 % (20.0-44.0); MEAN CORPUSCULAR HEMOGLOBIN 27 PG (26.0-33.0); MEAN CORPUSCULAR HGB CONC 34 g/dl (31.0-36.0); MEAN CORPUSCULAR VOLUME 79 fL (82-100); MONOCYTES # (AUTO) 1.1 K/uL (0.1-1.30); MONOCYTES % (AUTO) 9.8 % (2.0-12.0); NEUTROPHILS # (AUTO) 8.6 K/uL (1.8-8.9); NEUTROPHILS % (AUTO) 78.8 % (43.0-81.0); PLATELET COUNT (AUTO) 221 K/uL (150-450); RED BLOOD CELL COUNT(AUTO) 3.35 MIL/uL (4.0-5.2); RED CELL DISTRIBUTION WIDTH 16.9 % (11.5-15.0); WHITE BLOOD COUNT (AUTO) 10.9 K/uL (4.3-11.0)
[2024-03-03] MEDS: ATORVASTATIN 40 MG TABLET GT SCH (21:09)
[2024-03-03 22:13] LABS: BASOPHILS % (AUTO) 0.5 % (0.0-2.0); EOSINOPHILS # (AUTO) 0.2 K/uL (0.0-0.7); EOSINOPHILS % (AUTO) 1.7 % (0.0-6.0); HEMATOCRIT 25 % (33-45); HEMOGLOBIN 8.5 g/dL (11.5-14.8); LYMPHOCYTES # (AUTO) 1.1 K/uL (0.8-4.8); LYMPHOCYTES % (AUTO) 11.8 % (20.0-44.0); MEAN CORPUSCULAR HEMOGLOBIN 27 PG (26.0-33.0); MEAN CORPUSCULAR HGB CONC 35 g/dl (31.0-36.0); MEAN CORPUSCULAR VOLUME 79 fL (82-100); MONOCYTES # (AUTO) 1.1 K/uL (0.1-1.30); MONOCYTES % (AUTO) 11.5 % (2.0-12.0); NEUTROPHILS # (AUTO) 7.2 K/uL (1.8-8.9); NEUTROPHILS % (AUTO) 74.5 % (43.0-81.0); PLATELET COUNT (AUTO) 213 K/uL (150-450); RED BLOOD CELL COUNT(AUTO) 3.13 MIL/uL (4.0-5.2); WHITE BLOOD COUNT (AUTO) 9.6 K/uL (4.3-11.0)
[2024-03-04] VITALS (9 sets, daily range): BP systolic 120–156; BP diastolic 50–87; TEMP 97.5–99.3; O2SAT 94–100
[2024-03-04 01:15] LABS: HEMOGLOBIN 6.6 g/dL (11.5-14.8)
[2024-03-04 03:03] LABS: BASOPHILS % (AUTO) 0.3 % (0.0-2.0); EOSINOPHILS # (AUTO) 0.2 K/uL (0.0-0.7); EOSINOPHILS % (AUTO) 1.8 % (0.0-6.0); HEMATOCRIT 23 % (33-45); HEMOGLOBIN 7.9 g/dL (11.5-14.8); LYMPHOCYTES # (AUTO) 1.1 K/uL (0.8-4.8); LYMPHOCYTES % (AUTO) 12.8 % (20.0-44.0); MEAN CORPUSCULAR HEMOGLOBIN 27 PG (26.0-33.0); MEAN CORPUSCULAR HGB CONC 34 g/dl (31.0-36.0); MEAN CORPUSCULAR VOLUME 78 fL (82-100); MONOCYTES # (AUTO) 1.1 K/uL (0.1-1.30); MONOCYTES % (AUTO) 12.8 % (2.0-12.0); NEUTROPHILS # (AUTO) 6.4 K/uL (1.8-8.9); NEUTROPHILS % (AUTO) 72.3 % (43.0-81.0); PLATELET COUNT (AUTO) 232 K/uL (150-450); RED BLOOD CELL COUNT(AUTO) 2.96 MIL/uL (4.0-5.2); RED CELL DISTRIBUTION WIDTH 17.1 % (11.5-15.0); WHITE BLOOD COUNT (AUTO) 8.9 K/uL (4.3-11.0)
[2024-03-04] MEDS: IV NS 0.9% 1,000 ML IV PRN (04:17)
[2024-03-04 06:47] LABS: BASOPHILS % (AUTO) 0.3 % (0.0-2.0); EOSINOPHILS # (AUTO) 0.3 K/uL (0.0-0.7); HEMATOCRIT 24 % (33-45); HEMOGLOBIN 8.1 g/dL (11.5-14.8); LYMPHOCYTES # (AUTO) 1.2 K/uL (0.8-4.8); LYMPHOCYTES % (AUTO) 14.1 % (20.0-44.0); MEAN CORPUSCULAR HEMOGLOBIN 27 PG (26.0-33.0); MEAN CORPUSCULAR HGB CONC 34 g/dl (31.0-36.0); MEAN CORPUSCULAR VOLUME 79 fL (82-100); MONOCYTES # (AUTO) 1.1 K/uL (0.1-1.30); MONOCYTES % (AUTO) 12.5 % (2.0-12.0); NEUTROPHILS # (AUTO) 5.9 K/uL (1.8-8.9); NEUTROPHILS % (AUTO) 70.1 % (43.0-81.0); PLATELET COUNT (AUTO) 235 K/uL (150-450); RED BLOOD CELL COUNT(AUTO) 2.99 MIL/uL (4.0-5.2); RED CELL DISTRIBUTION WIDTH 16.9 % (11.5-15.0); WHITE BLOOD COUNT (AUTO) 8.5 K/uL (4.3-11.0)
[2024-03-04 07:23] LABS: CALCIUM, SERUM 8.4 mg/dL (8.5-10.1); CARBON DIOXIDE 27 mmol/L (21-32); CHLORIDE 96 mmol/L (98-107); CREATININE 3.7 mg/dL (0.6-1.3); GLUCOSE 217 mg/dL (74-106); MAGNESIUM 2.1 mg/dL (1.8-2.4); PHOSPHORUS 2.4 mg/dL (2.5-4.9); POTASSIUM 3.3 mmol/L (3.5-5.1); SODIUM SERUM 133 mmol/L (136-145); UREA NITROGEN, BLOOD 45 mg/dL (7-18)
[2024-03-04] MEDS: LEVOTHYROXINE SODIUM 75 MCG TABLET GT SCH (08:57)
[2024-03-04 10:44] LABS: BASOPHILS % (AUTO) 0.6 % (0.0-2.0); EOSINOPHILS # (AUTO) 0.3 K/uL (0.0-0.7); EOSINOPHILS % (AUTO) 3.7 % (0.0-6.0); HEMATOCRIT 22 % (33-45); HEMOGLOBIN 7.5 g/dL (11.5-14.8); LYMPHOCYTES % (AUTO) 12.4 % (20.0-44.0); MEAN CORPUSCULAR HEMOGLOBIN 27 PG (26.0-33.0); MEAN CORPUSCULAR HGB CONC 34 g/dl (31.0-36.0); MEAN CORPUSCULAR VOLUME 79 fL (82-100); MONOCYTES # (AUTO) 1.2 K/uL (0.1-1.30); MONOCYTES % (AUTO) 13.7 % (2.0-12.0); NEUTROPHILS # (AUTO) 5.9 K/uL (1.8-8.9); NEUTROPHILS % (AUTO) 69.6 % (43.0-81.0); PLATELET COUNT (AUTO) 214 K/uL (150-450); RED BLOOD CELL COUNT(AUTO) 2.81 MIL/uL (4.0-5.2); RED CELL DISTRIBUTION WIDTH 17.3 % (11.5-15.0); WHITE BLOOD COUNT (AUTO) 8.4 K/uL (4.3-11.0)
[2024-03-04] MEDS: PANTOPRAZOLE 40 MG/PACK PACK GT SCH (14:39)
[2024-03-04 16:29] LABS: BASOPHILS # (AUTO) 0.1 K/uL (0.0-0.2); BASOPHILS % (AUTO) 0.8 % (0.0-2.0); EOSINOPHILS # (AUTO) 0.4 K/uL (0.0-0.7); EOSINOPHILS % (AUTO) 4.9 % (0.0-6.0); HEMATOCRIT 22 % (33-45); HEMOGLOBIN 7.5 g/dL (11.5-14.8); LYMPHOCYTES # (AUTO) 1.1 K/uL (0.8-4.8); LYMPHOCYTES % (AUTO) 12.3 % (20.0-44.0); MEAN CORPUSCULAR HEMOGLOBIN 27 PG (26.0-33.0); MEAN CORPUSCULAR HGB CONC 34 g/dl (31.0-36.0); MEAN CORPUSCULAR VOLUME 79 fL (82-100); MONOCYTES # (AUTO) 1.2 K/uL (0.1-1.30); MONOCYTES % (AUTO) 13.1 % (2.0-12.0); NEUTROPHILS # (AUTO) 6.1 K/uL (1.8-8.9); NEUTROPHILS % (AUTO) 68.9 % (43.0-81.0); PLATELET COUNT (AUTO) 241 K/uL (150-450); RED BLOOD CELL COUNT(AUTO) 2.82 MIL/uL (4.0-5.2); WHITE BLOOD COUNT (AUTO) 8.8 K/uL (4.3-11.0)
[2024-03-04] MEDS: ATORVASTATIN 10 MG TABLET ONE (21:39)
[2024-03-04 22:11] LABS: BASOPHILS % (AUTO) 0.5 % (0.0-2.0); EOSINOPHILS # (AUTO) 0.5 K/uL (0.0-0.7); EOSINOPHILS % (AUTO) 5.8 % (0.0-6.0); HEMATOCRIT 22 % (33-45); HEMOGLOBIN 7.3 g/dL (11.5-14.8); LYMPHOCYTES % (AUTO) 11.9 % (20.0-44.0); MEAN CORPUSCULAR HEMOGLOBIN 27 PG (26.0-33.0); MEAN CORPUSCULAR HGB CONC 34 g/dl (31.0-36.0); MEAN CORPUSCULAR VOLUME 80 fL (82-100); MONOCYTES # (AUTO) 1.1 K/uL (0.1-1.30); NEUTROPHILS % (AUTO) 68.8 % (43.0-81.0); PLATELET COUNT (AUTO) 244 K/uL (150-450); RED BLOOD CELL COUNT(AUTO) 2.74 MIL/uL (4.0-5.2); RED CELL DISTRIBUTION WIDTH 17.6 % (11.5-15.0); WHITE BLOOD COUNT (AUTO) 8.7 K/uL (4.3-11.0)
[2024-03-05] VITALS (18 sets, daily range): BP systolic 127–159; BP diastolic 48–62; TEMP 96.6–98.6; O2SAT 95–100
[2024-03-05 02:04] LABS: BASOPHILS % (AUTO) 0.2 % (0.0-2.0); EOSINOPHILS # (AUTO) 0.4 K/uL (0.0-0.7); EOSINOPHILS % (AUTO) 5.2 % (0.0-6.0); LYMPHOCYTES % (AUTO) 12.9 % (20.0-44.0); MEAN CORPUSCULAR HEMOGLOBIN 27 PG (26.0-33.0); MEAN CORPUSCULAR HGB CONC 34 g/dl (31.0-36.0); MEAN CORPUSCULAR VOLUME 80 fL (82-100); MONOCYTES # (AUTO) 0.8 K/uL (0.1-1.30); MONOCYTES % (AUTO) 10.5 % (2.0-12.0); NEUTROPHILS # (AUTO) 5.3 K/uL (1.8-8.9); NEUTROPHILS % (AUTO) 71.2 % (43.0-81.0); PLATELET COUNT (AUTO) 226 K/uL (150-450); RED CELL DISTRIBUTION WIDTH 17.6 % (11.5-15.0); WHITE BLOOD COUNT (AUTO) 7.4 K/uL (4.3-11.0)
[2024-03-05 02:12] LABS: HEMATOCRIT 19 % (33-45); HEMOGLOBIN 6.4 g/dL (11.5-14.8)
[2024-03-05 03:15] LABS: BAND % (MANUAL) 3 % (0.0-5.0); LYMPHOCYTES % (MANUAL) 15 % (16-48)
[2024-03-05 03:16] LABS: EOSINOPHILS % (MANUAL) 3 % (0-4); MONOCYTES % (MANUAL) 8 % (0-11.0)
[2024-03-05 03:18] LABS: NEUTROPHILS % (MANUAL) 71 (42-76); PLATELET ESTIMATE ADEQUATE
[2024-03-05] MEDS: CEFEPIME 1 GM in IV D5W 50 ML IV SCH (09:43)
[2024-03-05 13:41] LABS: BASOPHILS # (AUTO) 0.1 K/uL (0.0-0.2); BASOPHILS % (AUTO) 0.7 % (0.0-2.0); EOSINOPHILS # (AUTO) 0.5 K/uL (0.0-0.7); EOSINOPHILS % (AUTO) 6.1 % (0.0-6.0); HEMATOCRIT 30 % (33-45); HEMOGLOBIN 10.2 g/dL (11.5-14.8); LYMPHOCYTES # (AUTO) 0.9 K/uL (0.8-4.8); LYMPHOCYTES % (AUTO) 10.5 % (20.0-44.0); MEAN CORPUSCULAR HEMOGLOBIN 28 PG (26.0-33.0); MEAN CORPUSCULAR HGB CONC 34 g/dl (31.0-36.0); MEAN CORPUSCULAR VOLUME 81 fL (82-100); MONOCYTES # (AUTO) 0.9 K/uL (0.1-1.30); MONOCYTES % (AUTO) 10.5 % (2.0-12.0); NEUTROPHILS # (AUTO) 6.1 K/uL (1.8-8.9); NEUTROPHILS % (AUTO) 72.2 % (43.0-81.0); PLATELET COUNT (AUTO) 219 K/uL (150-450); RED BLOOD CELL COUNT(AUTO) 3.67 MIL/uL (4.0-5.2); RED CELL DISTRIBUTION WIDTH 17.7 % (11.5-15.0); WHITE BLOOD COUNT (AUTO) 8.4 K/uL (4.3-11.0)
[2024-03-05 15:53] LABS: OCCULT BLOOD STOOL POSITIVE (NEGATIVE)
[2024-03-05] MEDS: ATORVASTATIN 10 MG TABLET GT SCH (21:28)
[2024-03-06] VITALS: BP 155/59; TEMP 97.9; O2SAT 100
[2024-03-06 04:00] VITALS: BP 160/61; TEMP 99.5; O2SAT 99
[2024-03-06 07:07] LABS: BASOPHILS % (AUTO) 0.5 % (0.0-2.0); EOSINOPHILS # (AUTO) 0.5 K/uL (0.0-0.7); EOSINOPHILS % (AUTO) 5.2 % (0.0-6.0); HEMATOCRIT 36 % (33-45); HEMOGLOBIN 12.3 g/dL (11.5-14.8); LYMPHOCYTES # (AUTO) 1.1 K/uL (0.8-4.8); LYMPHOCYTES % (AUTO) 11.7 % (20.0-44.0); MEAN CORPUSCULAR HEMOGLOBIN 28 PG (26.0-33.0); MEAN CORPUSCULAR HGB CONC 34 g/dl (31.0-36.0); MEAN CORPUSCULAR VOLUME 83 fL (82-100); MONOCYTES # (AUTO) 1.2 K/uL (0.1-1.30); MONOCYTES % (AUTO) 12.4 % (2.0-12.0); NEUTROPHILS # (AUTO) 6.7 K/uL (1.8-8.9); NEUTROPHILS % (AUTO) 70.2 % (43.0-81.0); PLATELET COUNT (AUTO) 265 K/uL (150-450); RED BLOOD CELL COUNT(AUTO) 4.35 MIL/uL (4.0-5.2); WHITE BLOOD COUNT (AUTO) 9.6 K/uL (4.3-11.0)
[2024-03-06 07:19] LABS: CALCIUM, SERUM 8.7 mg/dL (8.5-10.1); CARBON DIOXIDE 27 mmol/L (21-32); CHLORIDE 94 mmol/L (98-107); CREATININE 3.3 mg/dL (0.6-1.3); GLUCOSE 229 mg/dL (74-106); POTASSIUM 3.5 mmol/L (3.5-5.1); SODIUM SERUM 131 mmol/L (136-145); UREA NITROGEN, BLOOD 30 mg/dL (7-18)
[2024-03-06 08:00] VITALS: BP 172/67; TEMP 98.8; O2SAT 99
[2024-03-06 12:00] VITALS: BP 166/72; TEMP 98.4; O2SAT 99
[2024-03-06 16:00] VITALS: BP 156/59; TEMP 98.4; O2SAT 99
[2024-03-06 20:00] VITALS: BP 159/61; TEMP 98.2; O2SAT 99
[2024-03-07] VITALS: BP 159/61; TEMP 98.2; O2SAT 99
[2024-03-07 04:00] VITALS: BP 177/67; TEMP 98.1
[2024-03-07 06:56] LABS: BASOPHILS % (AUTO) 0.4 % (0.0-2.0); EOSINOPHILS # (AUTO) 0.6 K/uL (0.0-0.7); EOSINOPHILS % (AUTO) 7.4 % (0.0-6.0); HEMATOCRIT 34 % (33-45); HEMOGLOBIN 11.6 g/dL (11.5-14.8); LYMPHOCYTES # (AUTO) 0.9 K/uL (0.8-4.8); LYMPHOCYTES % (AUTO) 11.7 % (20.0-44.0); MEAN CORPUSCULAR HEMOGLOBIN 28 PG (26.0-33.0); MEAN CORPUSCULAR HGB CONC 34 g/dl (31.0-36.0); MEAN CORPUSCULAR VOLUME 82 fL (82-100); MONOCYTES # (AUTO) 1.1 K/uL (0.1-1.30); MONOCYTES % (AUTO) 14.1 % (2.0-12.0); NEUTROPHILS % (AUTO) 66.4 % (43.0-81.0); PLATELET COUNT (AUTO) 266 K/uL (150-450); RED BLOOD CELL COUNT(AUTO) 4.19 MIL/uL (4.0-5.2); RED CELL DISTRIBUTION WIDTH 17.8 % (11.5-15.0); WHITE BLOOD COUNT (AUTO) 7.5 K/uL (4.3-11.0)
[2024-03-07 07:06] LABS: CALCIUM, SERUM 9.1 mg/dL (8.5-10.1); CARBON DIOXIDE 23 mmol/L (21-32); CHLORIDE 97 mmol/L (98-107); CREATININE 4.2 mg/dL (0.6-1.3); GLUCOSE 179 mg/dL (74-106); POTASSIUM 3.3 mmol/L (3.5-5.1); SODIUM SERUM 133 mmol/L (136-145); UREA NITROGEN, BLOOD 46 mg/dL (7-18)
[2024-03-07 08:00] VITALS: BP 163/75; TEMP 98.4; O2SAT 98
[2024-03-07 08:33] VITALS: O2SAT 98
[2024-03-07] MEDS: POTASSIUM CHLORIDE 20 MEQ POWDER PACKET GT ONE (10:53)
[2024-03-07 13:13] VITALS: BP 158/73
== END 2024-03-07 15:43 | DRG 252 ==
LOC: ER 23:34 → ICU 03-03 03:22 → TELE-TD 03-03 05:20 → TELE1 03-03 15:40 → MEDSG1 03-06 13:18
PROVIDERS: ADMIT Internal Medicine; ATTEND Nurse Practitioner Acute Care
PROC: 5A1D70Z Performance of Urinary Filtration, Intermittent, Less than 6 Hours Per Day (ICD-10-PCS; principal; 2024-03-03)
PROC: 30233N1 Transfusion of Nonautologous Red Blood Cells into Peripheral Vein, Percutaneous Approach (ICD-10-PCS; 2024-03-05)
DX: K94.23 Gastrostomy malfunction (principal); G93.41 Metabolic encephalopathy; D68.59 Other primary thrombophilia; I13.2 Hypertensive heart and chronic kidney disease with heart failure and with stage 5 chronic kidney disease, or end stage renal disease; E46 Unspecified protein-calorie malnutrition; D63.1 Anemia in chronic kidney disease; E87.1 Hypo-osmolality and hyponatremia; E83.51 Hypocalcemia; N18.6 End stage renal disease; E11.22 Type 2 diabetes mellitus with diabetic chronic kidney disease; F03.90 Unspecified dementia, unspecified severity, without behavioral disturbance, psychotic disturbance, mood disturbance, and anxiety; K92.2 Gastrointestinal hemorrhage, unspecified; Y83.3 Surgical operation with formation of external stoma as the cause of abnormal reaction of the patient, or of later complication, without mention of misadventure at the time of the procedure; Y92.129 Unspecified place in nursing home as the place of occurrence of the external cause; I50.9 Heart failure, unspecified; Z99.2 Dependence on renal dialysis; Z20.822 Contact with and (suspected) exposure to COVID-19; Z86.73 Personal history of transient ischemic attack (TIA), and cerebral infarction without residual deficits; H26.9 Unspecified cataract; E78.5 Hyperlipidemia, unspecified; Z88.3 Allergy status to other anti-infective agents; Z88.0 Allergy status to penicillin; Z88.2 Allergy status to sulfonamides; Z88.8 Allergy status to other drugs, medicaments and biological substances; Z79.4 Long term (current) use of insulin; Z79.890 Hormone replacement therapy; Z79.82 Long term (current) use of aspirin; R13.10 Dysphagia, unspecified; I25.2 Old myocardial infarction; E03.9 Hypothyroidism, unspecified; Z74.01 Bed confinement status; D72.829 Elevated white blood cell count, unspecified; Z86.74 Personal history of sudden cardiac arrest; Z87.09 Personal history of other diseases of the respiratory system
CPT/HCPCS: 36415; 70450-TC; 71045-TC; 74018; 80048-TC; 80076-TC; 82272-TC; 82962-TC; 83690-TC; 83735-TC; 83970; 84100-TC; 84484-TC; 85025-TC; 85027-TC; 85730-TC; 86850-TC; 87081-TC; 90935-TC; 93970-TC; 94760-TC; 94762-TC; 94799-TC; A4223; A6253; C9113; G0378; J0360; J0692; J1815; J2765; J7030; J7040; J7050; J7060; P9016; Q9963

== ENCOUNTER 2024-03-14 10:27 | Inpatient (IN) | payer OTHER ==
[~2024-03-14] VITALS: Ht 152.4 cm; Wt 46.7 kg
[~2024-03-14 10:27] MED LIST changes: -ACET325T53 PO; -AMIN30LI2 PO; +AMLO10TA4 GT; +CHOL100062 GT; -CHOL200059 PO; -CLON0.1T PO; -CRAN425C6 PO; -DOCU-141 PO; +DOCU100T2 GT; -GLUC1KIT IM; -INSU100I30 SQ; -LIDO30CR47 TP; -MAGN400O6 PO; -NA P133E RC; -NIFE90TA61 PO; +NUTRITIONAL SUPPLEMENT GT; +PANT40TA49 GT; -PANT40TA49 PO; -POLY17PO4 PO
[2024-03-14] MEDS ORDERED: MORPHINE SULFATE INJ 2 MG/ML DISP.SYRIN ONE (11:08)
[2024-03-14] MEDS: MORPHINE SULFATE INJ 2 MG/ML DISP.SYRIN IV ONE (11:15)
[2024-03-14 11:24] LABS: BASOPHILS # (AUTO) 0.1 K/uL (0.0-0.2); BASOPHILS % (AUTO) 0.6 % (0.0-2.0); EOSINOPHILS # (AUTO) 0.2 K/uL (0.0-0.7); EOSINOPHILS % (AUTO) 1.9 % (0.0-6.0); HEMATOCRIT 32 % (33-45); HEMOGLOBIN 10.6 g/dL (11.5-14.8); LYMPHOCYTES % (AUTO) 9.7 % (20.0-44.0); MEAN CORPUSCULAR HEMOGLOBIN 27 PG (26.0-33.0); MEAN CORPUSCULAR HGB CONC 33 g/dl (31.0-36.0); MEAN CORPUSCULAR VOLUME 81 fL (82-100); MONOCYTES # (AUTO) 1.1 K/uL (0.1-1.30); NEUTROPHILS # (AUTO) 8.3 K/uL (1.8-8.9); NEUTROPHILS % (AUTO) 77.8 % (43.0-81.0); PLATELET COUNT (AUTO) 324 K/uL (150-450); RED BLOOD CELL COUNT(AUTO) 3.95 MIL/uL (4.0-5.2); RED CELL DISTRIBUTION WIDTH 17.3 % (11.5-15.0); WHITE BLOOD COUNT (AUTO) 10.7 K/uL (4.3-11.0)
[2024-03-14 11:33] LABS: CALCIUM, SERUM 8.4 mg/dL (8.5-10.1); CARBON DIOXIDE 25 mmol/L (21-32); CHLORIDE 94 mmol/L (98-107); CREATININE 3.4 mg/dL (0.6-1.3); GLUCOSE 106 mg/dL (74-106); POTASSIUM 3.8 mmol/L (3.5-5.1); SODIUM SERUM 130 mmol/L (136-145); UREA NITROGEN, BLOOD 38 mg/dL (7-18)
[2024-03-14 11:39] LABS: ALANINE AMINOTRANSFERASE 10 U/L (12-78); ALBUMIN 2.4 g/dL (3.4-5.0); ALKALINE PHOSPHATASE 241 U/L (46-116); ASPARTATE AMINOTRANSFERASE 38 U/L (15-37); BILIRUBIN,DIRECT 0.1 mg/dL (0.0-0.2); BILIRUBIN,TOTAL 0.6 mg/dL (0.2-1.0); LIPASE 84 U/L (16-77); TOTAL PROTEIN, SERUM 6.9 g/dL (6.4-8.2)
[2024-03-14 11:41] LABS: LACTIC ACID 0.8 mmol/L (0.4-2.0)
[2024-03-14] MEDS ORDERED: METO5TAB2 GT (12:11)
[2024-03-14] MEDS ORDERED: NUT.237L67 GT (12:11)
[2024-03-14 13:07] VITALS: O2SAT 98
[2024-03-14] MEDS ORDERED: ENOXAPARIN SODIUM 40 MG/0.4 ML DISP.SYRIN SQ SCH (14:00)
[2024-03-14] MEDS ORDERED: POLYVINYL ALCOHOL 15 ML BOTTLE EACHEYE PRN (14:00)
[2024-03-14] MEDS ORDERED: NEPRO VAN 237 ML CAN GT SCH (14:00)
[2024-03-14] MEDS ORDERED: ONDANSETRON HCL/PF 4 MG/2 ML VIAL IVP PRN (14:00)
[2024-03-14] MEDS ORDERED: DEXTROSE 50%-WATER 50 ML DISP.SYRIN IV PRN (14:00)
[2024-03-14 16:00] VITALS: BP 161/70; TEMP 97.3; O2SAT 99
[2024-03-14] MEDS: BLOOD SUGAR DIAGNOSTIC 1 EACH STRIP IN SCH (16:32)
[2024-03-14] MEDS: INSULIN REGULAR, HUMAN 100 UNIT/ML 3 ML VIAL SQ PRN (16:36)
[2024-03-14] MEDS: NEPRO 1,000 ML BOTTLE GT PRN (17:32)
[2024-03-14 20:36] VITALS: BP 118/68; TEMP 97.7; O2SAT 93
[2024-03-14 21:01] LABS: APPEARANCE,URINE CLOUDY (CLEAR); BILIRUBIN,URINE NEGATIVE (NEGATIVE); BLOOD, URINE 2+ Ery/uL (NEGATIVE); COLOR,URINE YELLOW (YELLOW); KETONES,URINE NEGATIVE (NEGATIVE); LEUKOCYTE ESTERASE ,URINE 1+ (NEGATIVE); NITRITE, URINE NEGATIVE (NEGATIVE); PROTEIN,URINE 3+ mg/dl (NEGATIVE); UGLUCOSE 2+ mg/dL (NEGATIVE); UROBILINOGEN,URINE 0.2 EU/dL (0.2)
[2024-03-14 21:14] LABS: ADD URINE CULTURE YES; BACTERIA,URINE Many /HPF (None Seen); SQUAMOUS EPITHELIAL CELL,UR Moderate /HPF (None Seen); WBC,URINE 21-50 /HPF (0-3)
[2024-03-14] MEDS: LABETALOL HCL (100MG) 100 MG TABLET GT SCH (21:20)
[2024-03-14] MEDS: ATORVASTATIN 10 MG TABLET GT SCH (21:21)
[2024-03-14] MEDS: HEPARIN SODIUM, PORCINE 5000 UNITS/1 ML VIAL SQ SCH (21:23)
[2024-03-15 00:20] VITALS: BP 170/71; TEMP 97; O2SAT 99
[2024-03-15 04:46] VITALS: BP 182/76; TEMP 98.1; O2SAT 99
[2024-03-15 06:52] LABS: BASOPHILS # (AUTO) 0.1 K/uL (0.0-0.2); BASOPHILS % (AUTO) 0.7 % (0.0-2.0); EOSINOPHILS # (AUTO) 0.3 K/uL (0.0-0.7); HEMATOCRIT 33 % (33-45); LYMPHOCYTES % (AUTO) 11.3 % (20.0-44.0); MEAN CORPUSCULAR HEMOGLOBIN 27 PG (26.0-33.0); MEAN CORPUSCULAR HGB CONC 33 g/dl (31.0-36.0); MEAN CORPUSCULAR VOLUME 82 fL (82-100); MONOCYTES # (AUTO) 0.8 K/uL (0.1-1.30); MONOCYTES % (AUTO) 8.8 % (2.0-12.0); NEUTROPHILS % (AUTO) 76.2 % (43.0-81.0); PLATELET COUNT (AUTO) 328 K/uL (150-450); RED BLOOD CELL COUNT(AUTO) 4.08 MIL/uL (4.0-5.2); RED CELL DISTRIBUTION WIDTH 17.2 % (11.5-15.0); WHITE BLOOD COUNT (AUTO) 9.2 K/uL (4.3-11.0)
[2024-03-15 06:57] LABS: CALCIUM, SERUM 8.7 mg/dL (8.5-10.1); CARBON DIOXIDE 24 mmol/L (21-32); CHLORIDE 93 mmol/L (98-107); GLUCOSE 76 mg/dL (74-106); MAGNESIUM 2.2 mg/dL (1.8-2.4); PHOSPHORUS 2.9 mg/dL (2.5-4.9); POTASSIUM 3.6 mmol/L (3.5-5.1); SODIUM SERUM 128 mmol/L (136-145); UREA NITROGEN, BLOOD 48 mg/dL (7-18)
[2024-03-15 07:00] LABS: CHOLESTEROL 142 mg/dL (<200); HDL CHOLESTEROL 68 mg/dL (40-60); LDL 61 mg/dL (0-99); TRIGLYCERIDES 90 mg/dL (30-150)
[2024-03-15] MEDS: LEVOTHYROXINE SODIUM 75 MCG TABLET GT SCH (07:44)
[2024-03-15] MEDS: CHOLECALCIFEROL (VITAMIN D 3) 400 UNIT TABLET GT SCH (08:20)
[2024-03-15] MEDS: ASPIRIN 81 MG TAB.CHEW GT SCH (08:20)
[2024-03-15] MEDS: PANTOPRAZOLE 40 MG/PACK PACK GT SCH (08:20)
[2024-03-15] MEDS: BUMETANIDE (1 MG) 1 MG TABLET GT SCH (08:21)
[2024-03-15] MEDS: AMLODIPINE BESYLATE 10 MG TABLET GT SCH (08:21)
[2024-03-15] MEDS: DOCUSATE SODIUM LIQ 100 MG/10 ML UDC GT SCH (08:21)
[2024-03-15 09:12] VITALS: BP 187/72; TEMP 97.9; O2SAT 95
[2024-03-15] MEDS: hydrALAZINE HCL 50 MG TABLET GT SCH (10:32)
[2024-03-15] MEDS: NITROGLYCERIN 30 GM TUBE TP SCH (10:33)
[2024-03-15] MEDS: CEFTRIAXONE 1 G in IV D5W 50 ML IV SCH (12:14)
[2024-03-15 13:15] VITALS: BP 151/57; TEMP 97.6; O2SAT 98
[2024-03-15 16:24] VITALS: BP 134/57; TEMP 97.7; O2SAT 93
[2024-03-15 20:00] VITALS: BP 123/64; TEMP 98.2; O2SAT 98
[2024-03-16] VITALS: BP 155/59; TEMP 98; O2SAT 96
[2024-03-16 04:00] VITALS: BP 146/65; TEMP 98.2; O2SAT 97
[2024-03-16 07:12] LABS: BASOPHILS % (AUTO) 0.2 % (0.0-2.0); EOSINOPHILS # (AUTO) 0.3 K/uL (0.0-0.7); HEMATOCRIT 33 % (33-45); HEMOGLOBIN 11.1 g/dL (11.5-14.8); LYMPHOCYTES # (AUTO) 0.5 K/uL (0.8-4.8); LYMPHOCYTES % (AUTO) 8.1 % (20.0-44.0); MEAN CORPUSCULAR HEMOGLOBIN 28 PG (26.0-33.0); MEAN CORPUSCULAR HGB CONC 34 g/dl (31.0-36.0); MEAN CORPUSCULAR VOLUME 82 fL (82-100); MONOCYTES % (AUTO) 15.1 % (2.0-12.0); NEUTROPHILS # (AUTO) 4.8 K/uL (1.8-8.9); NEUTROPHILS % (AUTO) 72.6 % (43.0-81.0); PLATELET COUNT (AUTO) 323 K/uL (150-450); RED BLOOD CELL COUNT(AUTO) 4.01 MIL/uL (4.0-5.2); RED CELL DISTRIBUTION WIDTH 17.4 % (11.5-15.0); WHITE BLOOD COUNT (AUTO) 6.6 K/uL (4.3-11.0)
[2024-03-16 07:41] LABS: ALANINE AMINOTRANSFERASE 11 U/L (12-78); ALBUMIN 2.2 g/dL (3.4-5.0); ALKALINE PHOSPHATASE 168 U/L (46-116); ASPARTATE AMINOTRANSFERASE 49 U/L (15-37); BILIRUBIN,TOTAL 0.5 mg/dL (0.2-1.0); CARBON DIOXIDE 24 mmol/L (21-32); CHLORIDE 95 mmol/L (98-107); CREATININE 3.2 mg/dL (0.6-1.3); GLUCOSE 157 mg/dL (74-106); MAGNESIUM 2.5 mg/dL (1.8-2.4); PHOSPHORUS 2.1 mg/dL (2.5-4.9); POTASSIUM 3.6 mmol/L (3.5-5.1); SODIUM SERUM 133 mmol/L (136-145); TOTAL PROTEIN, SERUM 6.6 g/dL (6.4-8.2); UREA NITROGEN, BLOOD 30 mg/dL (7-18)
[2024-03-16 08:00] VITALS: BP 143/75; TEMP 98.2; O2SAT 98
[2024-03-16 08:58] LABS: LYMPHOCYTES % (MANUAL) 9 % (16-48); NEUTROPHILS % (MANUAL) 74 (42-76)
[2024-03-16 08:59] LABS: ANISOCYTOSIS 1+; EOSINOPHILS % (MANUAL) 3 % (0-4); HYPOCHROMASIA 1+; MONOCYTES % (MANUAL) 14 % (0-11.0); PLATELET ESTIMATE ADEQUATE
[2024-03-16] MEDS ORDERED: NEPRO 1,000 ML BOTTLE GT SCH (11:00)
[2024-03-16] MEDS ORDERED: CIPR500T5 PO (11:52)
[2024-03-16 12:00] VITALS: BP 175/60; TEMP 98.3; O2SAT 98
[2024-03-16] MEDS: ACETAMINOPHEN 650 MG/20.3 ML UDC GT PRN (14:49)
[2024-03-16 16:00] VITALS: BP 139/61; TEMP 97.6; O2SAT 100
[2024-03-16] MEDS: NEUTRA PHOS 1 POWD.PACKET PO ONE (16:00)
[2024-03-16 17:31] VITALS: BP 162/64
== END 2024-03-16 18:00 | DRG 463 ==
LOC: ER 10:30 → TELE 13:17 → MED 03-16 12:32
PROVIDERS: ADMIT Nurse Practitioner Acute Care; ATTEND Nurse Practitioner Acute Care
PROC: 5A1D70Z Performance of Urinary Filtration, Intermittent, Less than 6 Hours Per Day (ICD-10-PCS; principal; 2024-03-15)
DX: N39.0 Urinary tract infection, site not specified (principal); G93.41 Metabolic encephalopathy; I21.A1 Myocardial infarction type 2; I13.2 Hypertensive heart and chronic kidney disease with heart failure and with stage 5 chronic kidney disease, or end stage renal disease; D68.59 Other primary thrombophilia; R53.2 Functional quadriplegia; N18.6 End stage renal disease; E11.22 Type 2 diabetes mellitus with diabetic chronic kidney disease; E87.1 Hypo-osmolality and hyponatremia; J90 Pleural effusion, not elsewhere classified; F03.90 Unspecified dementia, unspecified severity, without behavioral disturbance, psychotic disturbance, mood disturbance, and anxiety; I50.9 Heart failure, unspecified; Z86.73 Personal history of transient ischemic attack (TIA), and cerebral infarction without residual deficits; Z99.2 Dependence on renal dialysis; H26.9 Unspecified cataract; Z88.1 Allergy status to other antibiotic agents; Z88.0 Allergy status to penicillin; Z88.2 Allergy status to sulfonamides; Z79.890 Hormone replacement therapy; Z79.4 Long term (current) use of insulin; Z79.899 Other long term (current) drug therapy; Z79.82 Long term (current) use of aspirin; E78.5 Hyperlipidemia, unspecified; R13.10 Dysphagia, unspecified; B96.89 Other specified bacterial agents as the cause of diseases classified elsewhere; D64.9 Anemia, unspecified; E86.0 Dehydration; E03.9 Hypothyroidism, unspecified; I25.2 Old myocardial infarction; J98.11 Atelectasis; M89.8X9 Other specified disorders of bone, unspecified site; Z87.09 Personal history of other diseases of the respiratory system; Z86.16 Personal history of COVID-19; F09 Unspecified mental disorder due to known physiological condition
CPT/HCPCS: 36415; 71045-TC; 80048-TC; 80053-TC; 80061-TC; 80076-TC; 81001; 82962-TC; 83605-TC; 83690-TC; 83735-TC; 84100-TC; 84484-TC; 85025-TC; 87040-TC; 87081-TC; 90935-TC; 93307-TC; A4223; G0378; J0696; J1644; J1815; J2270; J7030; J7050; J7060